=== PATIENT | male | born 1960 | race Caucasian/White ===

== ENCOUNTER 2020-06-15 16:14 | Outpatient (REF) | payer OTHER, SELFPAY ==
--- NOTE | 2020-06-15 16:21 | XR_ITS ---
EXAMINATION: XR HIP, RIGHT CLINICAL INFORMATION: Right-sided CVA pain. COMPARISON: None TECHNIQUE: Two views of the right hip. FINDINGS: Mild degenerative change in the right hip with a small collar osteophyte at the femoral head. No joint space narrowing or acute osseous abnormality is seen. IMPRESSION: Mild degenerative change is seen in the right hip. No acute osseous abnormality is demonstrated.
== END 2020-06-15 16:15 | disposition home or self-care (01) ==
LOC: HO.XRAY 16:14
DX: M25.551 Pain in right hip (principal)
CPT/HCPCS: 73502

== ENCOUNTER 2020-06-16 21:57 | Emergency (ER) | payer OTHER, SELFPAY ==
[2020-06-16 22:00] VITALS: BP 177/80; PULSE 72; RESP 16; TEMP 36.6; O2SAT 99; BMI 35.3
[2020-06-16 22:30] VITALS: BP 154/80; PULSE 66; RESP 18; TEMP 36.9; O2SAT 98
--- NOTE | 2020-06-16 22:51 | ED_ITS ---
HPI - Abdominal Pain General Chief Complaint: Abdominal Pain Stated Complaint: ABD PAIN Time Seen by Provider: 06/16/20 22:51 Source: patient Mode of arrival: ambulatory Limitations: no limitations History of Present Illness HPI narrative: This is a 60-year-old male who presents with 3-4 days constant right upper quadrant discomfort that he states kind of radiates into his right shoulder not associated with fevers or chills but having some queasiness without vomiting or diarrhea. He denies any urinary pain/ burning /frequency and has not had his gallbladder removed. Pain improves on standing. Related Data Allergies Allergy/AdvReac Type Severity Reaction Status Date / Time colchicine [Colcrys] Allergy Unknown GI UPSET Verified 06/17/20 00:57 indomethacin Allergy Unknown tingling Verified 06/17/20 00:57 mouth No Known Allergies Allergy Verified 06/17/20 00:57 Review of Systems Review of Systems Pertinent positives and negatives as stated in HPI 10 point review of systems is otherwise negative. Physical Exam Vital Signs: Vital Signs: Vital Signs Temp Pulse Resp BP Pulse Ox 06/16/20 22:30 98.5 F 66 18 154/80 H 98 06/16/20 22:00 98 F 72 16 177/80 H 99 Body Mass Index 35.3 VITAL SIGNS: Reviewed. GENERAL: Well developed, well nourished, in no acute distress. HEAD: Normocephalic/atraumatic, EYES: PERRLA, EOMI intact without pain, no nystagmus/pallor/icterus noted EARS: Ext canals without abnormality, TMs non-bulging and non-erythematous NOSE: Nares patent bilateral OROPHARYNX: no oral lesions noted, posterior pharynx clear and non-erythematous without noted tonsillar enlargement/erythema/exudates NECK: Supple, no adenopathy LUNGS: Normal breath sounds. No adventitious sounds or accessory muscle use. SpO2<99%> CARDIOVASCULAR: Regular rate and rhythm without noted murmurs, no JVD or lower extremity edema. ABDOMEN: Soft, Mild tenderness at right upper quadrant, non-distended with bowel sounds. No rigidity. No guarding. No palpable masses or hernias noted MUSCULOSKELETAL: No tenderness, deformities, or effusions noted on gross inspection. EXTREMITIES: No cyanosis, clubbing or edema. SKIN: Inspection of the skin reveals no rashes, ulcerations, jaundice, pallor, or petechiae. NEUROLOGIC: Alert and oriented x 4. Strength and sensation to light touch were grossly intact x 4. Course Course Course Narrative: This is a 60-year-old male with history and clinical presentation most consistent with likely musculoskeletal, cholelithiasis/ cholecystitis but doubt pneumonia, renal colic, diverticulitis. Review of all investigations is negative for any acute findings to further support the possibility of cholelithiasis or cholecystitis. In addition, urinalysis is negative for any acute findings. All results and findings were discussed with patient at bedside, he was provided with a lidocaine patch at the site of maximal tenderness and discharged home in stable condition. MDM - Abdominal Pain Lab Data Result diagrams: 06/16/20 23:22 06/16/20 23:22 Labs: Lab Results 06/16/20 06/16/20 06/16/20 Range/Units 23:20 23:22 23:22 WBC 8.2 (4.8-10.8) X10*3/uL RBC 4.52 L (4.60-5.80) X10*6/uL Hgb 13.9 L (14.0-18.0) g/dl Hct 42.2 (42-52) % MCV 93.4 (80-98) fL MCH 30.8 (27.0-33.0) pg MCHC 32.9 (31.0-36.0) g/dl RDW 13.2 (11.0-16.0) % Plt Count 217 (160-400) X10*3/uL MPV 9.2 L (9.4-12.4) fL Immature Gran % (Auto) 0.1 (0.0-0.4) % Neut % (Auto) 65.2 (45-73) % Lymph % (Auto) 22.6 (20-40) % [place] % (Auto) 8.7 (2-11) % Eos % (Auto) 2.7 (0-4) % Baso % (Auto) 0.7 (0-2) % Lymph # (Auto) 1.9 (1.2-4.9) X10*3/uL [place] # (Auto) 0.7 (0.1-1.2) X10*3/uL Eos # (Auto) 0.2 (0.0-0.4) X10*3/uL Baso # (Auto) 0.1 (0.0-0.2) X10*3/uL Abs Immat Gran (auto) 0.01 (0.00-0.03) X10*3/uL Absolute Neuts (auto) 5.4 (2.0-8.3) X10*3/uL Absolute Nucleated RBC 0.000 (0.0-0.012) X10*3/uL Nucleated RBC % (auto) 0.0 (0.0-0.2) /100WBC Sodium 139 (135-145) mmol/L Potassium 3.8 (3.3-5.1) mmol/l Chloride 102 (96-108) mmol/L Carbon Dioxide 29 (22-29) mmol/L Anion Gap 12 (12-20) BUN 15 (9-16) mg/dL Creatinine 0.83 (0.5-1.4) mg/dL Estim Creat Clear Calc 141.9 Estimated GFR > 60 Random Glucose 102 (60-115) mg/dL Calcium 8.8 (8.4-10.2) mg/dL Total Bilirubin 0.4 (0.0-1.0) mg/dL AST 27 (5-37) U/L ALT 34 (0-40) U/L Alkaline Phosphatase 56 (39-117) U/L Total Protein 6.5 (6.5-8.0) g/dL Albumin 4.1 (3.5-5.0) g/dL Lipase 51 (8-78) U/L Urine Color YELLOW Urine Appearance CLEAR Urine pH 6.0 (5.0-8.0) Ur Specific [place] >= 1.030 H (1.005-1.025) Urine Protein NEG (NEG-TRACE) MG/DL Urine Glucose (UA) NEG (NEG) MG/DL Urine Ketones NEG (NEG) MG/DL Urine Blood NEG (NEG) Urine Nitrite NEG (NEG) Ur Leukocyte Esterase NEG (NEG) Discharge Plan Discharge Clinical Impression: Muscle strain Patient Disposition: Home, Self-Care Instructions: Muscle Strain (ED), Musculoskeletal Pain (ED) Additional Instructions: Consider using lidocaine patches, they are available [id number] from [employer] and should be applied to area of maximal tenderness as directed on the outside packaging. The patient and/or family acknowledge understanding of results (as applicable), diagnosis, treatment plan, need for follow up, and symptoms that should prompt a return to the emergency room. Referrals: Larry Elizabeth MD [Primary Care Provider] - 2 days PMF Past Medical History Source: nursing notes reviewed Medical History HTN (hypertension) Surgical History Hx of appendectomy Social History Social History Alcohol intake: current Smoking Status: Never smoker Use of substances other than those prescribed or required for medical reasons: No Advance Directives: No Advance Directives Information Provided: Yes
--- NOTE | 2020-06-16 22:52 | US_ITS ---
EXAMINATION: US ABDOMEN LIMITED CLINICAL INFORMATION: Right upper quadrant pain. COMPARISON: 08/12/2013 TECHNIQUE: Real-time imaging of the right upper quadrant abdominal viscera. FINDINGS: PANCREAS: The visualized proximal portion of the pancreas is unremarkable. The distal portion is obscured secondary to overlying bowel gas. LIVER: The liver demonstrates increased echogenicity suspicious for steatosis. No focal hepatic lesion. There is no intrahepatic biliary duct dilatation seen. GALLBLADDER: The gallbladder is physiologically distended without evidence of stones, sludge, polyps, wall thickening or pericholecystic fluid. COMMON BILE DUCT: Normal in caliber measuring 0.4 cm in diameter. RIGHT KIDNEY: No hydronephrosis. No renal calculi or focal parenchymal lesions. The kidney measures 14.9 cm in maximum dimension. FREE FLUID: None. IMPRESSION: No acute hepatobiliary findings. Hepatic steatosis.
[2020-06-16 23:27] LABS: Basophils Absolute Auto 0.1 X10*3/uL (0.0-0.2); Basophils Percent Auto 0.7 % (0-2); Eosinophils Absolute Auto 0.2 X10*3/uL (0.0-0.4); Eosinophils Percent Auto 2.7 % (0-4); Hematocrit 42.2 % (42-52); Hemoglobin 13.9 g/dl (14.0-18.0); Imm Gran Abs Auto 0.01 X10*3/uL (0.00-0.03); Imm Gran Pct Auto 0.1 % (0.0-0.4); Lymphocytes Absolute Auto 1.9 X10*3/uL (1.2-4.9); Lymphocytes Percent Auto 22.6 % (20-40); Mean Corpuscular HGB Conc 32.9 g/dl (31.0-36.0); Mean Corpuscular Hemoglobin 30.8 pg (27.0-33.0); Mean Corpuscular Volume 93.4 fL (80-98); Mean Platelet Volume 9.2 fL (9.4-12.4); Monocytes Absolute Auto 0.7 X10*3/uL (0.1-1.2); Monocytes Percent Auto 8.7 % (2-11); Neutrophils Absolute Auto 5.4 X10*3/uL (2.0-8.3); Neutrophils Percent Auto 65.2 % (45-73); Platelet Count 217 X10*3/uL (160-400); Red Blood Count 4.52 X10*6/uL (4.60-5.80); Red Cell Distribution Width 13.2 % (11.0-16.0); White Blood Count 8.2 X10*3/uL (4.8-10.8)
[2020-06-16 23:28] LABS: MANUAL DIFF FLAG NO
[2020-06-17] VITALS: BP 162/78; PULSE 59; RESP 20
[2020-06-17 00:04] LABS: Glucose Urine UA NEG (NEG); Leukocyte Esterase Urine NEG (NEG); Nitrite Urine NEG (NEG); Specific Gravity - Urine >= 1.030 (1.005-1.025); Urine Blood NEG (NEG); Urine Ketones NEG (NEG); Urine Protein NEG (NEG-TRACE)
[2020-06-17 00:05] LABS: Appearance Urine CLEAR; Color Urine YELLOW; UACC Culture Trigger NO
[2020-06-17 00:11] LABS: Alanine Aminotransferase 34 U/L (0-40); Albumin Level 4.1 g/dL (3.5-5.0); Alkaline Phosphatase 56 U/L (39-117); Anion Gap 12 (12-20); Aspartate Amino Transferase 27 U/L (5-37); Bilirubin Total 0.4 mg/dL (0.0-1.0); Blood Urea Nitrogen 15 mg/dL (9-16); Carbon Dioxide 29 mmol/L (22-29); Chloride 102 mmol/L (96-108); Creatinine Clr Calc Pharmacy 141.9; Estimated Glomerular Filt Rate > 60; Glucose Random 102 mg/dL (60-115); Lipase 51 U/L (8-78); Potassium 3.8 mmol/l (3.3-5.1); Sodium 139 mmol/L (135-145); Total Protein 6.5 g/dL (6.5-8.0)
--- NOTE | 2020-06-17 00:19 | PC.NURSE ---
PT BACK FROM ULTRA SOUND. PT STATES PAIN HAS GOTTEN BETTER, PROVIDER IS AWARE OF PAIN LEVEL AND WILL CONTINUE TO MONITOR.
[2020-06-17 00:42] LABS: Calcium 8.8 mg/dL (8.4-10.2)
[2020-06-17] MEDS: Lidocaine 4 % Patch ADH..PATCH 1 PATCH TRANSDERMA (00:58)
== END 2020-06-17 01:07 | disposition home or self-care (01) ==
PROVIDERS: Emergency Provider Student in an Organized Health Care Education/Training Program
DX: S39.011A Strain of muscle, fascia and tendon of abdomen, initial encounter (principal); X58.XXXA Exposure to other specified factors, initial encounter; I10 Essential (primary) hypertension; Y93.9 Activity, unspecified; Y92.9 Unspecified place or not applicable; Y99.9 Unspecified external cause status
CPT/HCPCS: 36415; 76705; 80053; 81003; 83690; 85025; 99284

== ENCOUNTER 2020-07-27 07:56 | Outpatient (REF) | payer OTHER, SELFPAY ==
[2020-07-27 11:06] LABS: Hematocrit 44.4 % (42-52); Hemoglobin 14.7 g/dl (14.0-18.0); Mean Corpuscular HGB Conc 33.1 g/dl (31.0-36.0); Mean Corpuscular Hemoglobin 30.6 pg (27.0-33.0); Mean Corpuscular Volume 92.3 fL (80-98); Mean Platelet Volume 10.3 fL (9.4-12.4); Platelet Count 261 X10*3/uL (160-400); Red Blood Count 4.81 X10*6/uL (4.60-5.80); Red Cell Distribution Width 13.4 % (11.0-16.0)
[2020-07-27 11:40] LABS: Alanine Aminotransferase 45 U/L (0-40); Albumin Level 4.1 g/dL (3.5-5.0); Alkaline Phosphatase 55 U/L (39-117); Anion Gap 12 (12-20); Aspartate Amino Transferase 37 U/L (5-37); Bilirubin Direct 0.3 mg/dL (0.0-0.5); Bilirubin Total 0.7 mg/dL (0.0-1.0); Blood Urea Nitrogen 12 mg/dL (9-16); Calcium 8.3 mg/dL (8.4-10.2); Carbon Dioxide 31 mmol/L (22-29); Chloride 101 mmol/L (96-108); Cholesterol 121 mg/dL; Estimated Glomerular Filt Rate > 60; Glucose Fasting 104 mg/dL (60-99); HDL Cholesterol 43 mg/dL; LDL Cholesterol Calculated 56 mg/dl; Potassium 4.3 mmol/l (3.3-5.1); Sodium 140 mmol/L (135-145); Total Protein 6.5 g/dL (6.5-8.0); Triglycerides 110 mg/dL
[2020-07-27 11:49] LABS: Prostate Specific Antigen 0.29 ng/mL (<0.05-4.0)
== END 2020-07-27 07:57 | disposition home or self-care (01) ==
LOC: HO.HMGCLDS 07:56
DX: Z00.00 Encounter for general adult medical examination without abnormal findings (principal); Z12.5 Encounter for screening for malignant neoplasm of prostate; I10 Essential (primary) hypertension; R35.1 Nocturia
CPT/HCPCS: 36415; 80053; 80061; 80076; 82248; 84153; 85027

== ENCOUNTER 2020-10-08 09:52 | Emergency (ER) | payer OTHER, SELFPAY ==
[2020-10-08 11:27] VITALS: BP 180/94; PULSE 68; RESP 18; TEMP 37.1; O2SAT 96; BMI 33.7
--- NOTE | 2020-10-08 12:12 | ED_ITS ---
HPI - URI/Sore Throat General Chief Complaint: Upper Respiratory Symptoms Stated Complaint: sinus infection Time Seen by Provider: 10/08/20 11:43 Source: patient Mode of arrival: ambulatory History of Present Illness HPI Narrative: 60-year-old male with past medical history of GERD, deviated septum, HTN presenting to the ED complaining of sinus pressure, rhinorrhea and bilateral ear pain x5 days. Admits to multiple sinus infections in the past, and this is similar to priors. Denies fever, chills, hearing loss, drainage from ear, sore throat, cough, chest pain, shortness MD elicited complaint: rhinorrhea, nasal congestion and sinus pain Related Data Home Medications Medication Instructions Recorded Confirmed azithromycin 250 mg tablet 250 mg PO DAILY 10/05/20 Previous Rx's Medication Instructions Recorded metoprolol tartrate 100 mg tablet 100 mg PO BID #60 tab 10/05/20 azithromycin See Rx Instructions PO .COMPLEX #6 10/08/20 tab Allergies Allergy/AdvReac Type Severity Reaction Status Date / Time colchicine [Colcrys] Allergy Unknown GI UPSET Verified 10/08/20 11:27 indomethacin Allergy Unknown tingling Verified 10/08/20 11:27 mouth No Known Allergies Allergy Verified 10/08/20 11:27 Review of Systems Review of Systems: Constitutional: No Weight loss, No Fever, No Chills ENT/Mouth: + Ear Pain, + Nasal Congestion, + Sinus Pain, No Hoarseness, No sore throat, + Rhinorrhea, No Swallowing Difficulty Cardiovascular: No Chest Pain, No SOB Respiratory: No Cough Musculoskeletal: No joint pain, No Myalgias, No Joint Swelling Skin: No Skin Lesions, No rash Yes all other systems are reviewed and are negative [facility] Past Medical History Attestation statement: The following information was validated with the patient. Medical History (Updated 10/08/20 @ 12:16 by JODIE Lopez) Deviated septum GERD (gastroesophageal reflux disease) HTN (hypertension) Surgical History Hx of appendectomy Social History Social History Alcohol intake: current Alcohol intake frequency: a few times a month Alcohol type: beer and hard liquor Smoking Status: Never smoker Smoked in Last 30 Days: No Use of substances other than those prescribed or required for medical reasons: No Advance Directives: No Advance Directives Information Provided: No Physical Exam Vital Signs: Vital Signs: Last Vital Signs Temp 98.7 F 10/08/20 11:27 Pulse 68 10/08/20 11:27 Resp 18 10/08/20 11:27 BP 180/94 H 10/08/20 11:27 Pulse Ox 96 10/08/20 11:27 Body Mass Index 33.7 Const: General: cooperative, healthy appearing, comfortable and no acute distress Orientation/consciousness: patient oriented x3 Limitations: no limitations HENMT: Head: Yes normal to inspection Ears: hearing grossly normal bilaterally, external ears normal, TM's normal bilaterally and mastoids normal General nose exam: Normal external nose present Face and sinus: Yes face symmetric, No crepitus and Yes sinus tenderness (Frontal and ethmoid) Mouth: Normal oral and palatal mucosa present and tongue normal Throat: Yes posterior oropharynx normal, Yes tonsils normal, Yes uvula midline, No peritonsillar mass and No uvular edema Eyes: General: appearance normal, both eyes and all related structures EOM: EOMs intact bilaterally Neck: Neck: Yes normal visual inspection, Yes no lymphadenopathy and Yes no meningeal signs Resp: Effort & Inspection: normal respiratory effort, no stridor and not tachypneic Skin: Rashes: no rashes Wounds: no wounds Neuro: General: patient oriented x3 and no meningeal signs Gait exam (Neuro): Normal gait present Extrem: General: Yes normal to inspection MDM - URI/Sore Throat MDM Narrative Medical decision making narrative: On exam VSS, NAD/well-appearing, exam consistent with sinusitis. Lower concern for COVID-19/pneumonia Medical Records Attestation: I reviewed the patient's medical records. Discharge Plan Discharge Clinical Impression: Sinusitis Patient Disposition: Home, Self-Care Instructions: Sinusitis (ED) Additional Instructions: You likely have a sinus infection. Zithromax in is an antibiotic, take as prescribed. Continue taking using Flonase at home for nasal congestion. Take Tylenol and Motrin. Stay hydrated. Rest. Establish care with a new primary care doctor If symptoms persist or worsen, if fever, hearing loss, drainage from ear, shortness of breath or chest pain return to the ED Prescriptions: New azithromycin 250 mg tablet See Rx Instructions PO .COMPLEX Qty: 6 RF: 0 No Action metoprolol tartrate 100 mg tablet 100 mg PO BID Qty: 60 RF: 0 Referrals: Physician,Unknown [Primary Care Provider] - 2 days
== END 2020-10-08 12:20 | disposition home or self-care (01) ==
PROVIDERS: Emergency Provider Emergency Medicine
DX: J32.9 Chronic sinusitis, unspecified (principal); I10 Essential (primary) hypertension
CPT/HCPCS: 99283

== ENCOUNTER 2021-02-06 06:12 | Outpatient (REF) | payer OTHER, SELFPAY ==
[2021-02-06 11:24] LABS: MANUAL DIFF FLAG NO
[2021-02-06 11:31] LABS: Basophils Absolute Auto 0.1 X10*3/uL (0.0-0.2); Basophils Percent Auto 0.7 % (0-2); Eosinophils Absolute Auto 0.3 X10*3/uL (0.0-0.4); Eosinophils Percent Auto 3.5 % (0-4); Hematocrit 44.5 % (42-52); Hemoglobin 14.5 g/dl (14.0-18.0); Imm Gran Abs Auto 0.03 X10*3/uL (0.00-0.03); Imm Gran Pct Auto 0.4 % (0.0-0.4); Lymphocytes Absolute Auto 1.6 X10*3/uL (1.2-4.9); Lymphocytes Percent Auto 21.6 % (20-40); Mean Corpuscular HGB Conc 32.6 g/dl (31.0-36.0); Mean Corpuscular Hemoglobin 30.5 pg (27.0-33.0); Mean Corpuscular Volume 93.7 fL (80-98); Mean Platelet Volume 10.1 fL (9.4-12.4); Monocytes Absolute Auto 0.5 X10*3/uL (0.1-1.2); Monocytes Percent Auto 7.5 % (2-11); Neutrophils Absolute Auto 4.8 X10*3/uL (2.0-8.3); Neutrophils Percent Auto 66.3 % (45-73); Platelet Count 262 X10*3/uL (160-400); Red Blood Count 4.75 X10*6/uL (4.60-5.80); Red Cell Distribution Width 13.9 % (11.0-16.0); White Blood Count 7.2 X10*3/uL (4.8-10.8)
[2021-02-06 11:31] LABS: Glucose Urine UA NEG (NEG); Leukocyte Esterase Urine NEG (NEG); Nitrite Urine NEG (NEG); Specific Gravity - Urine 1.025 (1.005-1.025); Urine Blood NEG (NEG); Urine Ketones NEG (NEG); Urine Protein TRACE MG/DL (NEG-TRACE)
[2021-02-06 11:34] LABS: Appearance Urine CLOUDY; Color Urine YELLOW
[2021-02-06 12:07] LABS: TSH reflex Free T4 1.17 uIU/mL (0.32-4.0)
[2021-02-06 12:09] LABS: Alanine Aminotransferase 41 U/L (0-40); Alkaline Phosphatase 60 U/L (39-117); Anion Gap 12 (12-20); Aspartate Amino Transferase 40 U/L (5-37); Bilirubin Total 0.6 mg/dL (0.0-1.0); Blood Urea Nitrogen 14 mg/dL (9-16); Calcium 8.9 mg/dL (8.4-10.2); Carbon Dioxide 31 mmol/L (22-29); Chloride 102 mmol/L (96-108); Cholesterol 117 mg/dL; Estimated Glomerular Filt Rate > 60; Glucose Fasting 123 mg/dL (60-99); HDL Cholesterol 43 mg/dL; LDL Cholesterol Calculated 56 mg/dl; Potassium 4.1 mmol/L (3.3-5.1); Sodium 141 mmol/L (135-145); Total Protein 6.6 g/dL (6.5-8.0); Triglycerides 94 mg/dL
== END 2021-02-06 06:13 | disposition home or self-care (01) ==
LOC: HO.HMGCLDS 06:12
PROVIDERS: PCP Internal Medicine; Visit Provider Internal Medicine
DX: I10 Essential (primary) hypertension (principal); J30.9 Allergic rhinitis, unspecified; K21.9 Gastro-esophageal reflux disease without esophagitis; E66.9 Obesity, unspecified; G47.33 Obstructive sleep apnea (adult) (pediatric)
CPT/HCPCS: 36415; 80053; 80061; 81003; 84443; 85025

== ENCOUNTER 2021-02-13 06:45 | Outpatient (REF) | payer OTHER, SELFPAY ==
--- NOTE | ~2021-02-13 | XR_ITS ---
EXAMINATION: CERVICAL AND LUMBAR SPINE. BILATERAL HIPS. CLINICAL INFORMATION: Cervical disc disorder low back pain. Bilateral hip pain. COMPARISON: Right hip 06/15/2020 lumbar spine 09/07/2018 TECHNIQUE: 3 views lumbar spine. 6 views cervical spine and 2 views each hip. FINDINGS: LUMBAR SPINE: The vertebral heights and alignment is normal. There is mild loss of disc height at T11-T12, T12-L1, L1-L2 and L2-L3 disc levels with moderate ventral spondylosis at T12-L1 and L1 S2 disc levels. No visible acute fracture or dislocation seen. Paravertebral soft tissues are normal. CERVICAL SPINE: There is mild straightening of cervical lordosis. There is loss of C2-C3 disc height. Rest of the disc heights, vertebral heights and alignment is normal. The neural foramina are mildly narrowed bilaterally in the lower cervical region. No visible acute fracture or dislocation seen. BILATERAL HIPS: There is no visible acute fracture, dislocation or subluxation seen. The joint spaces are maintained normal. No loose bodies or soft tissue swelling seen. XR/XR hips ALEJO min 3V IMPRESSION: Degenerative disc changes with ventral spondylosis upper lumbar and lower dorsal spine. No acute fracture or dislocation seen in the lumbar spine. Mild degenerative disc changes C2-C3 disc level with mild straightening of cervical lordosis likely spasm or position. Unremarkable bilateral hip exam.
--- NOTE | ~2021-02-13 | XR_ITS ---
EXAMINATION: CERVICAL AND LUMBAR SPINE. BILATERAL HIPS. CLINICAL INFORMATION: Cervical disc disorder low back pain. Bilateral hip pain. COMPARISON: Right hip 06/15/2020 lumbar spine 09/07/2018 TECHNIQUE: 3 views lumbar spine. 6 views cervical spine and 2 views each hip. FINDINGS: LUMBAR SPINE: The vertebral heights and alignment is normal. There is mild loss of disc height at T11-T12, T12-L1, L1-L2 and L2-L3 disc levels with moderate ventral spondylosis at T12-L1 and L1 S2 disc levels. No visible acute fracture or dislocation seen. Paravertebral soft tissues are normal. CERVICAL SPINE: There is mild straightening of cervical lordosis. There is loss of C2-C3 disc height. Rest of the disc heights, vertebral heights and alignment is normal. The neural foramina are mildly narrowed bilaterally in the lower cervical region. No visible acute fracture or dislocation seen. BILATERAL HIPS: There is no visible acute fracture, dislocation or subluxation seen. The joint spaces are maintained normal. No loose bodies or soft tissue swelling seen. XR/XR cervical spine 3V IMPRESSION: Degenerative disc changes with ventral spondylosis upper lumbar and lower dorsal spine. No acute fracture or dislocation seen in the lumbar spine. Mild degenerative disc changes C2-C3 disc level with mild straightening of cervical lordosis likely spasm or position. Unremarkable bilateral hip exam.
--- NOTE | ~2021-02-13 | XR_ITS ---
EXAMINATION: CERVICAL AND LUMBAR SPINE. BILATERAL HIPS. CLINICAL INFORMATION: Cervical disc disorder low back pain. Bilateral hip pain. COMPARISON: Right hip 06/15/2020 lumbar spine 09/07/2018 TECHNIQUE: 3 views lumbar spine. 6 views cervical spine and 2 views each hip. FINDINGS: LUMBAR SPINE: The vertebral heights and alignment is normal. There is mild loss of disc height at T11-T12, T12-L1, L1-L2 and L2-L3 disc levels with moderate ventral spondylosis at T12-L1 and L1 S2 disc levels. No visible acute fracture or dislocation seen. Paravertebral soft tissues are normal. CERVICAL SPINE: There is mild straightening of cervical lordosis. There is loss of C2-C3 disc height. Rest of the disc heights, vertebral heights and alignment is normal. The neural foramina are mildly narrowed bilaterally in the lower cervical region. No visible acute fracture or dislocation seen. BILATERAL HIPS: There is no visible acute fracture, dislocation or subluxation seen. The joint spaces are maintained normal. No loose bodies or soft tissue swelling seen. XR/XR lumbar spine 2-3V IMPRESSION: Degenerative disc changes with ventral spondylosis upper lumbar and lower dorsal spine. No acute fracture or dislocation seen in the lumbar spine. Mild degenerative disc changes C2-C3 disc level with mild straightening of cervical lordosis likely spasm or position. Unremarkable bilateral hip exam.
== END 2021-02-13 06:46 | disposition home or self-care (01) ==
LOC: HO.XRAY 06:45
PROVIDERS: Visit Provider Internal Medicine
DX: M50.90 Cervical disc disorder, unspecified, unspecified cervical region (principal); M51.36 Other intervertebral disc degeneration, lumbar region; M25.551 Pain in right hip; M25.552 Pain in left hip
CPT/HCPCS: 72040; 72100; 73522

== ENCOUNTER 2021-05-06 09:57 | Emergency (ER) | payer OTHER, SELFPAY ==
--- NOTE | ~2021-05-06 | XR_ITS ---
EXAMINATION: XR FOOT, LEFT CLINICAL INFORMATION: Left lateral foot pain COMPARISON: None TECHNIQUE: AP, lateral, and oblique views of the left foot. FINDINGS: Soft tissue marker positioned along the lateral aspect of the midfoot. Mild lateral soft tissue swelling at the level of the proximal fifth metatarsal. There is bony spurring/enthesopathy changes at the proximal base fifth metatarsal without evidence of discrete acute fracture. Ossicle adjacent to the cuboid. No visible acute fracture or dislocation otherwise. Large Achilles tendon insertional spurring. Small plantar calcaneal spur. Alignment is maintained. Joint spaces are relatively maintained. XR/XR foot LT min 3V IMPRESSION: No radiographic evidence of discrete acute fracture. Bony spurring/enthesopathy at the proximal base fifth metatarsal. Calcaneal spurring.
[2021-05-06 10:50] VITALS: BP 167/105; PULSE 61; RESP 16; TEMP 36.8; O2SAT 98; BMI 34.0
--- NOTE | 2021-05-06 11:34 | ED.GENADULT ---
HPI - General Adult General Chief complaint: Extremity Injury, Lower Stated complaint: L FOOT SWELLING RED Time Seen by Provider: 05/06/21 11:32 Source: patient Mode of arrival: ambulatory Limitations: no limitations History of Present Illness HPI narrative: 61-year-old male with left lateral foot pain and redness that he was wondering if it is cellulitis that started 3 days ago and is now getting better. The redness and swelling was on the lateral and dorsal aspect of his left foot. It hurt to walk. Patient has a history of gout. The area was warm and painful to touch, now the pain is resolving and he is able to walk without pain. Related Data Home Medications Medication Instructions Recorded Confirmed aspirin 81 mg tablet,delayed 81 mg PO DAILY 10/26/20 02/12/21 release Previous Rx's Medication Instructions Recorded clonazepam 0.5 mg tablet 0.5 mg PO DAILY PRN 90 Days #90 tab 10/27/20 loratadine 10 mg tablet 10 mg PO DAILY 90 Days #90 tab 10/27/20 pantoprazole 40 mg tablet,delayed 40 mg PO DAILY 90 Days #90 tab 10/27/20 release metoprolol tartrate 100 mg tablet 100 mg PO BID 90 Days #180 tab 10/30/20 valsartan 160 1 tab PO DAILY 90 Days #90 tab 12/07/20 mg-hydrochlorothiazide 25 mg tablet amlodipine 5 mg tablet 5 mg PO DAILY 90 Days #90 tab 02/12/21 meclizine 25 mg tablet 25 mg PO TID PRN 10 Days #30 tab 04/23/21 fluticasone propionate 50 2 spray INTRANASAL BID #16 ml 05/05/21 mcg/actuation nasal spray,suspension prednisone 10 mg tablet 10 mg PO DAILY 12 Days #12 tab 05/06/21 Allergies Allergy/AdvReac Type Severity Reaction Status Date / Time colchicine [Colcrys] Allergy Unknown GI UPSET Verified 02/12/21 09:14 indomethacin Allergy Unknown tingling Verified 02/12/21 09:14 mouth Review of Systems Review of Systems: Constitutional : No Weight loss, No Fever, No Chills, No Night Sweats,No Fatigue, No Malaise ENT/Mouth : No Hearing loss, No Ear Pain, No Nasal Congestion, NoSinus Pain, No Hoarseness, No sore throat, No Rhinorrhea, NoSwallowing Difficulty Eyes: No Eye Pain, No Swelling, No Redness, No Foreign Body, NoDischarge, No Vision Changes Cardiovascular : No Chest Pain, No SOB, No Dyspnea on Exertion, NoOrthopnea, No Edema, No Palpitations Respiratory : No Cough, No Sputum, No Wheezing, No Smoke Exposure, No Dyspnea Gastrointestinal : No Nausea, No Vomiting, No Diarrhea, NoConstipation, No abdominal Pain, No Hematochezia, No Melena Genitourinary : no irregular bleeding, No Dysuria, No UrinaryFrequency, No Hematuria, No Urinary Incontinence, No Urgency, No FlankPain, No Urinary Flow Changes, No Hesitancy Musculoskeletal : Left foot pain Skin : Redness and swelling left foot Neuro : No Weakness, No Numbness, No Paresthesias, No Loss ofConsciousness, No Dizziness, No Headache PMFSH Past Medical History Medical History Allergic rhinitis Anxiety Benign essential hypertension Bilateral hip pain Cervical disc disease Deviated septum Elevated LFTs GERD (gastroesophageal reflux disease) Gout Impaired fasting glucose Lumbar degenerative disc disease Normal colonoscopy (~03/17/14) Obesity (BMI 30-39.9) Obstructive sleep apnea Surgical History History of hernia repair Hx of appendectomy Social History Social History Alcohol intake: current Alcohol intake frequency: a few times a month Alcohol type: beer and hard liquor Patient Tobacco Use Status: Former Tobacco user Tobacco use type: Cigarette Second Hand Smoke Exposure: No Advance Directives: Yes Advance Directives Information Provided: Yes Advance Directives on File: No service: No Current occupational status: retired Physical Exam Vital Signs: Vital Signs: Last Vital Signs Temp 98.2 F 05/06/21 10:50 Pulse 61 05/06/21 10:50 Resp 16 05/06/21 10:50 BP 167/105 H 05/06/21 10:50 Pulse Ox 98 05/06/21 10:50 Body Mass Index 34.0 Const: General: cooperative, no acute distress, well developed, alert and awake Nutritional Appearance: well nourished Orientation/consciousness: patient oriented x3 Limitations: no limitations HENMT: Head: Yes normal to inspection, Yes normocephalic and Yes atraumatic Ears: hearing grossly normal bilaterally, external ears normal, TM's normal bilaterally and EAC's normal General nose exam: Normal external nose present Face and sinus: Yes normal facial exam and Yes sinuses nontender Mouth: Normal oral and palatal mucosa present Throat: Yes posterior oropharynx normal Eyes: Conjunctivae: conjunctivae normal Pupils: Equal, round and reactive pupils present EOM: EOMs intact bilaterally Neck: Neck: Yes full ROM, Yes no lymphadenopathy and Yes supple Resp: Effort & Inspection: normal respiratory effort and able to speak in complete sentences Auscultation: clear to auscultation bilaterally, no crackles, no rales, no rhonchi and no wheezes Cardio: Rate: regular rate Rhythm: regular rhythm Heart sounds: S1 normal heart sound present and S2 normal heart sound present Skin: Other: Very mild redness, no warmth, 2 dorsum and lateral aspect of left foot Neuro: General: patient oriented x3, tone normal and moves all extremities Cranial nerves: Yes Equal, round and reactive pupils present Extrem: Other: Tender to palpation lateral left foot Psych: Appearance: grossly normal Affect: normal affect Attitude: cooperative Thought process: Normal thought process present Course Course Course Narrative: 7-year-old male with a history of gout and cellulitis presents with 3 days of left foot redness and pain, no warmth, pain is resolving. X-ray shows mild swelling at the base of the 5th metatarsal. This looks more like gout than a cellulitis. Treated patient patient with prednisone. Gave return precautions. Counseled patient to call his primary care provider for follow-up appointment tomorrow. Discharge Plan Discharge Clinical Impression: Gout Qualifiers: Gout site: foot Gout etiology: unspecified cause Chronicity: acute Laterality: left Qualified Code(s): M10.9 - Gout, unspecified Patient Disposition: Home, Self-Care Instructions: Gout (ED) Additional Instructions: Please fill your prescription for prednisone and take the taper all the way to the end. Please call your primary care provider for follow-up appointment from today's emergency room visit. If your symptoms resolve, I think seeing your primary care provider in May scheduled this fine. Please return to emergency room for any new or concerning symptoms. Prescriptions: New prednisone 10 mg tablet 10 mg PO DAILY 12 Days Qty: 12 RF: 0 No Action metoprolol tartrate 100 mg tablet 100 mg PO BID 90 Days Qty: 180 RF: 3 valsartan-hydrochlorothiazide 160-25 mg tablet 1 tab PO DAILY 90 Days Qty: 90 RF: 3 meclizine 25 mg tablet 25 mg PO TID PRN (Reason: dizziness) 10 Days Qty: 30 RF: 0 fluticasone propionate 50 mcg/actuation spray,suspension 2 spray intranasal BID Qty: 16 RF: 3 aspirin 81 mg tablet,delayed release (DR/EC) 81 mg PO DAILY RF: 0 loratadine 10 mg tablet 10 mg PO DAILY 90 Days Qty: 90 RF: 3 pantoprazole 40 mg tablet,delayed release (DR/EC) 40 mg PO DAILY 90 Days Qty: 90 RF: 3 clonazepam 0.5 mg tablet 0.5 mg PO DAILY PRN (Reason: anxiety) 90 Days Qty: 90 RF: 0 amlodipine 5 mg tablet 5 mg PO DAILY 90 Days Qty: 90 RF: 1 Interventions: ED Discharge Assessment Last Done: 05/06/21 13:27 Discharge Date/Time: 05/06/21 13:27
== END 2021-05-06 13:27 | disposition home or self-care (01) ==
PROVIDERS: Emergency Provider Emergency Medicine; PCP Internal Medicine
DX: M10.9 Gout, unspecified (principal); M79.672 Pain in left foot; I10 Essential (primary) hypertension; Z79.899 Other long term (current) drug therapy; Z79.82 Long term (current) use of aspirin
CPT/HCPCS: 73630; 99283

== ENCOUNTER 2021-07-03 06:28 | Outpatient (REF) | payer OTHER, SELFPAY ==
[2021-07-03 11:27] LABS: MANUAL DIFF FLAG NO
[2021-07-03 11:33] LABS: Appearance Urine CLOUDY; Color Urine YELLOW; Glucose Urine UA NEG (NEG); Leukocyte Esterase Urine NEG (NEG); Nitrite Urine NEG (NEG); Urine Blood NEG (NEG); Urine Ketones NEG (NEG); Urine Protein NEG (NEG-TRACE)
[2021-07-03 11:45] LABS: Basophils Percent Auto 0.5 % (0-2); Eosinophils Absolute Auto 0.1 X10*3/uL (0.0-0.4); Eosinophils Percent Auto 2.2 % (0-4); Hematocrit 43.9 % (42.0-52.0); Hemoglobin 14.6 g/dl (14.0-18.0); Imm Gran Abs Auto 0.02 X10*3/uL (0.00-0.03); Imm Gran Pct Auto 0.3 % (0.0-0.4); Lymphocytes Absolute Auto 1.4 X10*3/uL (1.2-4.9); Lymphocytes Percent Auto 23.2 % (20-40); Mean Corpuscular HGB Conc 33.3 g/dl (31.0-36.0); Mean Corpuscular Hemoglobin 30.9 pg (27.0-33.0); Mean Corpuscular Volume 92.8 fL (80.0-98.0); Mean Platelet Volume 10.6 fL (9.4-12.4); Monocytes Absolute Auto 0.5 X10*3/uL (0.1-1.2); Monocytes Percent Auto 8.3 % (2-11); Neutrophils Absolute Auto 3.84 x10*3/uL (2.0-8.3); Neutrophils Percent Auto 65.5 % (45-73); Platelet Count 260 X10*3/uL (160-400); Red Blood Count 4.73 X10*6/uL (4.60-5.80); White Blood Count 5.9 X10*3/uL (4.8-10.8)
[2021-07-03 12:00] LABS: Estimated Average Glucose 114 mg/dL; Hemoglobin A1C 149.6275 umol/L; Hemoglobin A1c % 5.6 %
[2021-07-03 12:26] LABS: Alanine Aminotransferase 35 U/L (0-40); Albumin Level 3.9 g/dL (3.5-5.0); Alkaline Phosphatase 51 U/L (39-117); Anion Gap 13 (12-20); Aspartate Amino Transferase 30 U/L (5-37); Bilirubin Total 0.8 mg/dL (0.0-1.0); Blood Urea Nitrogen 9 mg/dL (9-16); Calcium 8.7 mg/dL (8.4-10.2); Carbon Dioxide 29 mmol/L (22-29); Chloride 103 mmol/L (96-108); Cholesterol 113 mg/dL; Estimated Glomerular Filt Rate > 60; Glucose Fasting 112 mg/dL (60-99); HDL Cholesterol 42 mg/dL; LDL Cholesterol Calculated 54 mg/dl; Potassium 4.1 mmol/L (3.3-5.1); Sodium 141 mmol/L (135-145); Total Protein 6.3 g/dL (6.5-8.0); Triglycerides 87 mg/dL; Uric Acid 7.8 mg/dL (3.4-7.0)
[2021-07-03 12:35] LABS: TSH reflex Free T4 1.09 uIU/mL (0.32-4.0); Vitamin D 25-OH Total 20.4 ng/mL (>30)
== END 2021-07-03 06:29 | disposition home or self-care (01) ==
LOC: HO.HMGCLDS 06:28
PROVIDERS: PCP Internal Medicine; Visit Provider Internal Medicine
DX: M10.9 Gout, unspecified (principal); E55.9 Vitamin D deficiency, unspecified; R79.89 Other specified abnormal findings of blood chemistry; K21.9 Gastro-esophageal reflux disease without esophagitis; J30.9 Allergic rhinitis, unspecified; I10 Essential (primary) hypertension; G47.33 Obstructive sleep apnea (adult) (pediatric); E66.9 Obesity, unspecified; R73.01 Impaired fasting glucose; E78.00 Pure hypercholesterolemia, unspecified
CPT/HCPCS: 36415; 80053; 80061; 81003; 82306; 83036; 84443; 84550; 85025

== ENCOUNTER 2021-11-21 06:53 | Outpatient (REF) | payer OTHER, SELFPAY ==
[2021-11-21 11:06] LABS: MANUAL DIFF FLAG NO
[2021-11-21 11:13] LABS: Basophils Absolute Auto 0.1 X10*3/uL (0.0-0.2); Basophils Percent Auto 0.6 % (0-2); Eosinophils Absolute Auto 0.2 X10*3/uL (0.0-0.4); Eosinophils Percent Auto 2.1 % (0-4); Hematocrit 46.5 % (42.0-52.0); Hemoglobin 15.2 g/dl (14.0-18.0); Imm Gran Abs Auto 0.05 X10*3/uL (0.00-0.03); Imm Gran Pct Auto 0.6 % (0.0-0.4); Lymphocytes Absolute Auto 1.5 X10*3/uL (1.2-4.9); Lymphocytes Percent Auto 17.9 % (20-40); Mean Corpuscular HGB Conc 32.7 g/dl (31.0-36.0); Mean Corpuscular Hemoglobin 31.1 pg (27.0-33.0); Mean Corpuscular Volume 95.1 fL (80.0-98.0); Mean Platelet Volume 10.6 fL (9.4-12.4); Monocytes Absolute Auto 0.8 X10*3/uL (0.1-1.2); Monocytes Percent Auto 9.4 % (2-11); Neutrophils Absolute Auto 5.7 x10*3/uL (2.0-8.3); Neutrophils Percent Auto 69.4 % (45-73); Platelet Count 250 X10*3/uL (160-400); Red Blood Count 4.89 X10*6/uL (4.60-5.80); Red Cell Distribution Width 14.1 % (11.0-16.0); White Blood Count 8.2 X10*3/uL (4.8-10.8)
[2021-11-21 11:21] LABS: Appearance Urine HAZY; Color Urine YELLOW; Glucose Urine UA NEG (NEG); Leukocyte Esterase Urine NEG (NEG); Nitrite Urine NEG (NEG); PH 6.5 (5.0-8.0); Specific Gravity - Urine 1.015 (1.005-1.025); Urine Blood NEG (NEG); Urine Ketones NEG (NEG); Urine Protein NEG (NEG-TRACE)
[2021-11-21 11:41] LABS: Alanine Aminotransferase 37 U/L (0-40); Alkaline Phosphatase 49 U/L (39-117); Anion Gap 11 (12-20); Aspartate Amino Transferase 35 U/L (5-37); Bilirubin Total 1.1 mg/dL (0.0-1.0); Blood Urea Nitrogen 17 mg/dL (9-16); Calcium 9.2 mg/dL (8.4-10.2); Carbon Dioxide 29 mmol/L (22-29); Chloride 103 mmol/L (96-108); Cholesterol 114 mg/dL; Estimated Glomerular Filt Rate > 60; Glucose Fasting 116 mg/dL (60-99); HDL Cholesterol 42 mg/dL; LDL Cholesterol Calculated 52 mg/dl; Potassium 4.4 mmol/L (3.3-5.1); Sodium 139 mmol/L (135-145); Total Protein 6.6 g/dL (6.5-8.0); Triglycerides 103 mg/dL; Uric Acid 8.4 mg/dL (3.4-7.0)
[2021-11-21 12:11] LABS: TSH reflex Free T4 1.12 uIU/mL (0.32-4.0)
[2021-11-21 14:58] LABS: Vitamin D 25-OH Total 18.2 ng/mL (>30)
== END 2021-11-21 06:54 | disposition home or self-care (01) ==
LOC: HO.HMGCLDS 06:53
PROVIDERS: Visit Provider Internal Medicine
DX: I10 Essential (primary) hypertension (principal); M10.9 Gout, unspecified; E78.00 Pure hypercholesterolemia, unspecified; E55.9 Vitamin D deficiency, unspecified
CPT/HCPCS: 36415; 80053; 80061; 81003; 82306; 84443; 84550; 85025

== ENCOUNTER 2022-01-09 10:00 | Outpatient (RCR) | payer OTHER, SELFPAY ==
--- NOTE | 2021-12-10 09:48 | MHC.PT.EP ---
[facility] [place] Office [place] Office [place] Office [address] Lavon Dubon [address] [phone] F: [phone] F: [phone] F: [phone] F: [phone] Physical Therapy Plan of Care Date of Evaluation: Date of Surgery: n/a Diagnosis: strain of muscle and tendon at neck level Assessment: Patient is a 61 year old male presenting to PT with complaints of pain in strain of muscle and tendon at neck level. Pt reports onset of pain began a few months ago but has been ongoing for a while due to insidious onset. He presents today with impairments in pain, cervical ROM, DNF strength, and posture. 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 Clinical presentation today is most consistent with signs and sx associated with possible UT strain and pt will benefit from skilled PT to address the following problems and impairments noted upon evaluation: pain, cervical ROM, DNF strength, and posture. These problems limit the patient with the following functional activities: golf, casino lakia, and sleep. The prescribed treatment plan of care is medically necessary. Co-morbidities of HTN were identified and taken into considerations of plan of care. Pt was educated on HEP, role of PT, prognosis, POC. Frequency and Duration: The patient will be seen 2 x week x 4 weeks Short Term Goals: Pt will demonstrate pain free cervical AROM in available range in 2 weeks. Pt will demonstrate ability to perform chin tuck with good DNF recruitment in 2 weeks. Pt will demonstrate min to no tenderness to palpation at R UT in 2 weeks. Pt will demonstrate improved postural awareness by sitting with biomechanically correct posture without cues throughout session to improve overall postural function in 2 weeks. Shelter Goals: Pt will demonstrate improved NDI score to <10% disability in 4 weeks for improved overall function. Pt will demonstrate ability to golf with min to no pain in swing follow through in 4 weeks. Pt will demonstrate ability to use casino machines with min to no pain in 4 weeks for return to PLOF. Treatment Plan: Modalities to reduce pain, spasms and effusion. Manual therapy to restore motion and function. Therapeutic exercise to improve strength and flexibility. Neuromuscular re-education for posture and balance. Therapeutic activities to return to functional activities of daily living. Electronically signed by: Queenie López, PT, DPT, ATC Please sign and return to therapist. Thank you for your referral.
--- NOTE | 2022-01-09 12:21 | MHC.PT.DC ---
[facility] [place] Office [place] Office [place] Office [address] Lavon Dubon [address] [phone] F: [phone] F: [phone] F: [phone] F: [phone] Physical Therapy Discharge Report Diagnosis: strain of muscle and tendon at neck level Date of Surgery: n/a Date of Evaluation: 12/10/21 Date of Discharge: 01/09/22 Treatments to Date: 8 Cancellations to Date: 0 No Shows to Date: 0 Discharge Status: Achieved Goals Improved Function Independent with HEP Discharge Summary: Pt has made good progress since start of care. He is no longer experiencing pain when playing golf which he is satisfied with. He has made great progress towards his goals and is independent in his HEP at this time. Discussed importance of meterman continuation of HEP to maintain all progress made thus far. Pt with good understanding of this. Max benefits of PT have been provided at this time and skilled PT is no longer indicated. Pt in agreement with d/c today. Electronically signed by: Queenie López, PT, DPT, ATC Please sign and return to therapist. Thank you for your referral.
== END 2022-01-09 12:21 | disposition home or self-care (01) ==
LOC: HO.PTCHIC 10:00
PROVIDERS: PCP Internal Medicine; Visit Provider Internal Medicine
DX: S16.1XXA Strain of muscle, fascia and tendon at neck level, initial encounter (principal)
CPT/HCPCS: 97110; 97140; 97161

== ENCOUNTER 2022-03-05 11:31 | Emergency (ER) | payer OTHER, SELFPAY ==
[2022-03-05 12:15] VITALS: BP 183/90; PULSE 79; RESP 18; TEMP 36.7; O2SAT 98; BMI 36.2
--- NOTE | 2022-03-05 12:18 | ECG_ITS ---
Test Reason : hypertension Blood Pressure : / mmHG Vent. Rate : 067 BPM Atrial Rate : 000 BPM P-R Int : 000 ms QRS Dur : 096 ms QT Int : 382 ms P-R-T Axes : 000 -01 019 degrees QTc Int : 403 ms Normal sinus rhythm Normal ECG When compared with ECG of 15-FEB-2014 16:59, Vent. rate has decreased BY 42 BPM Referred By: Generic ED Physician Electronically Signed By:Armen Blue
[2022-03-05 12:40] LABS: MANUAL DIFF FLAG NO
[2022-03-05 12:45] LABS: Basophils Percent Auto 0.5 % (0-2); Eosinophils Absolute Auto 0.2 X10*3/uL (0.0-0.4); Hemoglobin 14.4 g/dl (14.0-18.0); Imm Gran Abs Auto 0.05 X10*3/uL (0.00-0.03); Imm Gran Pct Auto 0.7 % (0.0-0.4); Lymphocytes Absolute Auto 1.3 X10*3/uL (1.2-4.9); Lymphocytes Percent Auto 16.3 % (20-40); Mean Corpuscular HGB Conc 33.5 g/dl (31.0-36.0); Mean Corpuscular Hemoglobin 30.9 pg (27.0-33.0); Mean Corpuscular Volume 92.3 fL (80.0-98.0); Mean Platelet Volume 9.3 fL (9.4-12.4); Monocytes Absolute Auto 0.7 X10*3/uL (0.1-1.2); Monocytes Percent Auto 9.3 % (2-11); Neutrophils Absolute Auto 5.5 x10*3/uL (2.0-8.3); Neutrophils Percent Auto 71.2 % (45-73); Platelet Count 239 X10*3/uL (160-400); Red Blood Count 4.66 X10*6/uL (4.60-5.80); Red Cell Distribution Width 13.7 % (11.0-16.0); White Blood Count 7.7 X10*3/uL (4.8-10.8)
[2022-03-05 12:56] LABS: Anion Gap 11 (12-20); Blood Urea Nitrogen 8 mg/dL (9-16); Calcium 8.7 mg/dL (8.4-10.2); Carbon Dioxide 28 mmol/L (22-29); Chloride 103 mmol/L (96-108); Creatinine Clr Calc Pharmacy 136.9; Estimated Glomerular Filt Rate > 60; Glucose Random 121 mg/dL (60-115); Potassium 4.3 mmol/L (3.3-5.1); Sodium 138 mmol/L (135-145)
[2022-03-05 13:05] LABS: Troponin-I High Sensitivity 4.9 ng/L (<3.5-35.0)
--- NOTE | 2022-03-05 15:21 | ED.GENADULT ---
HPI - General Adult General Chief complaint: General Medical Stated complaint: high bp Time Seen by Provider: 03/05/22 15:21 Source: patient Mode of arrival: ambulatory Limitations: no limitations History of Present Illness HPI narrative: patient was to have an appointment with his PMD on Thursday checked his BP and it was 220/150. No symptoms. Told to come into the ED by PMD. Patient was on losartan/hctz 320-25 but this was making him dizzy for one month so he cut back to 160-25. But his last BP check was ok. Onset (ago): unknown Severity: moderate Associated symptoms: denies other symptoms Related Data Home Medications Medication Instructions Recorded Confirmed aspirin 81 mg tablet,delayed 81 mg PO DAILY 10/26/20 11/25/21 release Previous Rx's Medication Instructions Recorded pantoprazole 40 mg tablet,delayed 40 mg PO DAILY 90 days #90 tabs 10/27/20 release meclizine 25 mg tablet 25 mg PO TID PRN dizziness 10 days 04/23/21 #30 tabs loratadine 10 mg tablet 10 mg PO DAILY #30 tabs 06/26/21 clonazepam 0.5 mg tablet 0.5 mg PO DAILY PRN anxiety 90 07/09/21 days #90 tabs fluticasone propionate 50 2 spray intranasal BID #16 mL 10/07/21 mcg/actuation nasal spray,suspension metoprolol tartrate 100 mg tablet 100 mg PO BID #180 tabs 10/23/21 cholecalciferol (vitamin D3) 50 50 mcg PO DAILY 90 days #90 caps 11/25/21 mcg (2,000 unit) capsule valsartan 320 1 tab PO DAILY 90 days #90 tabs 11/25/21 mg-hydrochlorothiazide 25 mg tablet amlodipine 5 mg tablet 5 mg PO DAILY #90 tabs 02/03/22 Allergies Allergy/AdvReac Type Severity Reaction Status Date / Time colchicine [Colcrys] Allergy Unknown GI UPSET Verified 03/05/22 12:15 indomethacin Allergy Unknown tingling Verified 03/05/22 12:15 mouth Review of Systems Constitutional: Constitutional: Reports no additional constitutional complaints Eyes: Eyes: Reports no additional eye complaints ENT: Denies dizziness Cardiovascular: Cardiovascular: Reports no additional cardiovascular complaints Respiratory: Respiratory: Reports as per HPI Gastrointestinal: Gastrointestinal: Reports no additional gastrointestinal complaints Musculoskeletal: Musculoskeletal: Reports no additional musculoskeletal complaints Integumentary/Breasts: Skin/Breast: Denies rash Neurologic: Reports system reviewed and no additional complaints, except as documented, Denies dizziness and Denies Sensory deficit (Neuro) Psychiatric: Psychiatric: Denies anxiety [facility] Past Medical History Medical History Allergic rhinitis Anxiety Benign essential hypertension Bilateral hip pain Cervical disc disease Deviated septum Elevated LFTs GERD (gastroesophageal reflux disease) Gout Impaired fasting glucose Lumbar degenerative disc disease Normal colonoscopy (~03/17/14) Obesity (BMI 30-39.9) Obstructive sleep apnea Vitamin D deficiency Surgical History History of hernia repair Hx of appendectomy Social History Social History Housing: House Alcohol intake: current Alcohol intake frequency: a few times a month Alcohol type: beer and hard liquor Patient Tobacco Use Status: Former Tobacco user Tobacco use type: Cigarette Second Hand Smoke Exposure: No Advance Directives: Yes Advance Directives Information Provided: No Advance Directives on File: No service: No Current occupational status: retired Cognitive needs: No Hearing needs: No Vision needs: No Physical Exam ED Vital Signs: Vital Signs - 24 hr 03/05/22 12:15 03/05/22 15:34 03/05/22 16:24 Temperature 98.1 F 98.1 F 98.2 F Pulse Rate 79 64 96 Respiratory Rate 18 16 18 Blood Pressure 183/90 H 177/86 H 166/80 H Pulse Oximetry 98 98 98 Oxygen Delivery Method Room Air Room Air Room Air BMI result Body Mass Index 36.2 Const General: healthy appearing Nutritional Appearance: obese Orientation/consciousness: oriented to person and patient oriented x3 Limitations: no limitations HENMT Head: Yes normal to inspection Ears: external ears normal General nose exam: Normal external nose present Mouth: Normal oral and palatal mucosa present and oropharynx normal Throat: Yes posterior oropharynx normal Eyes General: appearance normal, both eyes and all related structures Neck Neck: Yes normal visual inspection Chest Chest palpation & inspection: normal inspection of the chest Resp Auscultation: clear to auscultation bilaterally Cardio Jugular venous distension: no JVD Rate: regular rate Rhythm: regular rhythm Heart sounds: S1 normal heart sound present and S2 normal heart sound present GI Inspection: Yes normal to inspection Palpation (GI): Soft to palpation, nontender and No hepatosplenomegaly present Auscultation: normal bowel sounds General: Yes no CVA tenderness Back/Spine/Pelvis Back: no CVA tenderness Skin General skin exam: no rashes or lesions noted Neuro General: oriented to person and patient oriented x3 Cranial nerves: Yes CN's II-XII intact bilaterally Motor exam (neuro): 5/5 motor strength present throughout Sensory Exam: No Sensory deficit (Neuro) Extrem General: Yes normal to inspection Psych Appearance: grossly normal Course Reevaluation(s) Reevaluation #1: No evidence of end organ damage, BP down to 160/88 will dc with follow up Time: 17:24 Medical Decision Making Lab Data Result diagrams: 03/05/22 12:32 03/05/22 12:32 Labs: Lab Results 03/05/22 03/05/22 03/05/22 Range/Units 12:32 12:32 12:32 WBC 7.7 (4.8-10.8) X10*3/uL RBC 4.66 (4.60-5.80) X10*6/uL Hgb 14.4 (14.0-18.0) g/dl Hct 43.0 (42.0-52.0) % MCV 92.3 (80.0-98.0) fL MCH 30.9 (27.0-33.0) pg MCHC 33.5 (31.0-36.0) g/dl RDW 13.7 (11.0-16.0) % Plt Count 239 (160-400) X10*3/uL MPV 9.3 L (9.4-12.4) fL Immature Gran % (Auto) 0.7 H (0.0-0.4) % Neut % (Auto) 71.2 (45-73) % Lymph % (Auto) 16.3 L (20-40) % [place] % (Auto) 9.3 (2-11) % Eos % (Auto) 2.0 (0-4) % Baso % (Auto) 0.5 (0-2) % Lymph # (Auto) 1.3 (1.2-4.9) X10*3/uL [place] # (Auto) 0.7 (0.1-1.2) X10*3/uL Eos # (Auto) 0.2 (0.0-0.4) X10*3/uL Baso # (Auto) 0.0 (0.0-0.2) X10*3/uL Abs Immat Gran (auto) 0.05 H (0.00-0.03) X10*3/uL Absolute Neuts (auto) 5.5 (2.0-8.3) x10*3/uL Absolute Nucleated RBC 0.000 (0.0-0.012) X10*3/uL Nucleated RBC % (auto) 0.0 (0.0-0.2) /100WBC Sodium 138 (135-145) mmol/L Potassium 4.3 (3.3-5.1) mmol/L Chloride 103 (96-108) mmol/L Carbon Dioxide 28 (22-29) mmol/L Anion Gap 11 L (12-20) BUN 8 L D (9-16) mg/dL Creatinine 0.85 (0.5-1.4) mg/dL Estim Creat Clear Calc 136.9 Estimated GFR > 60 Random Glucose 121 H (60-115) mg/dL Calcium 8.7 (8.4-10.2) mg/dL Troponin I High Sens 4.9 (<3.5-35.0) ng/L Urine Color Urine Appearance Urine pH (5.0-8.0) Ur Specific [place] (1.005-1.025) Urine Protein (NEG-TRACE) MG/DL Urine Glucose (UA) (NEG) MG/DL Urine Ketones (NEG) MG/DL Urine Blood (NEG) Urine Nitrite (NEG) Ur Leukocyte Esterase (NEG) 03/05/22 Range/Units 15:45 WBC (4.8-10.8) X10*3/uL RBC (4.60-5.80) X10*6/uL Hgb (14.0-18.0) g/dl Hct (42.0-52.0) % MCV (80.0-98.0) fL MCH (27.0-33.0) pg MCHC (31.0-36.0) g/dl RDW (11.0-16.0) % Plt Count (160-400) X10*3/uL MPV (9.4-12.4) fL Immature Gran % (Auto) (0.0-0.4) % Neut % (Auto) (45-73) % Lymph % (Auto) (20-40) % [place] % (Auto) (2-11) % Eos % (Auto) (0-4) % Baso % (Auto) (0-2) % Lymph # (Auto) (1.2-4.9) X10*3/uL [place] # (Auto) (0.1-1.2) X10*3/uL Eos # (Auto) (0.0-0.4) X10*3/uL Baso # (Auto) (0.0-0.2) X10*3/uL Abs Immat Gran (auto) (0.00-0.03) X10*3/uL Absolute Neuts (auto) (2.0-8.3) x10*3/uL Absolute Nucleated RBC (0.0-0.012) X10*3/uL Nucleated RBC % (auto) (0.0-0.2) /100WBC Sodium (135-145) mmol/L Potassium (3.3-5.1) mmol/L Chloride (96-108) mmol/L Carbon Dioxide (22-29) mmol/L Anion Gap (12-20) BUN (9-16) mg/dL Creatinine (0.5-1.4) mg/dL Estim Creat Clear Calc Estimated GFR Random Glucose (60-115) mg/dL Calcium (8.4-10.2) mg/dL Troponin I High Sens (<3.5-35.0) ng/L Urine Color YELLOW Urine Appearance CLEAR Urine pH 7.0 (5.0-8.0) Ur Specific [place] 1.010 (1.005-1.025) Urine Protein NEG (NEG-TRACE) MG/DL Urine Glucose (UA) NEG (NEG) MG/DL Urine Ketones NEG (NEG) MG/DL Urine Blood NEG (NEG) Urine Nitrite NEG (NEG) Ur Leukocyte Esterase NEG (NEG) ECG Data Attestation: I personally reviewed and interpreted this ECG as follows: Interpretation: normal sinus rate [address] or twave changes Discharge Plan Discharge Clinical Impression: Benign essential hypertension Patient Disposition: Home, Self-Care Instructions: Hypertension (ED) Prescriptions: No Action meclizine 25 mg tablet 25 mg PO TID PRN (Reason: dizziness) 10 Days Qty: 30 0RF loratadine 10 mg tablet 10 mg PO DAILY Qty: 30 11RF fluticasone propionate 50 mcg/actuation spray,suspension 2 spray intranasal BID Qty: 16 3RF metoprolol tartrate 100 mg tablet 100 mg PO BID Qty: 180 1RF amlodipine 5 mg tablet 5 mg PO DAILY Qty: 90 0RF aspirin 81 mg tablet,delayed release (DR/EC) 81 mg PO DAILY pantoprazole 40 mg tablet,delayed release (DR/EC) 40 mg PO DAILY 90 Days Qty: 90 3RF clonazepam 0.5 mg tablet 0.5 mg PO DAILY PRN (Reason: anxiety) 90 Days Qty: 90 0RF cholecalciferol (vitamin D3) 50 mcg (2,000 unit) capsule 50 mcg PO DAILY 90 Days Qty: 90 3RF valsartan-hydrochlorothiazide 320-25 mg tablet 1 tab PO DAILY 90 Days Qty: 90 3RF Referrals: Eber Claire MD [Primary Care Provider] - 1 week
[2022-03-05 15:34] VITALS: BP 177/86; PULSE 64; RESP 16; TEMP 36.7; O2SAT 98
[2022-03-05 15:53] LABS: Appearance Urine CLEAR; Color Urine YELLOW; Glucose Urine UA NEG (NEG); Leukocyte Esterase Urine NEG (NEG); Nitrite Urine NEG (NEG); Urine Blood NEG (NEG); Urine Ketones NEG (NEG); Urine Protein NEG (NEG-TRACE)
[2022-03-05 16:24] VITALS: BP 166/80; PULSE 96; RESP 18; TEMP 36.8; O2SAT 98
--- NOTE | 2022-03-05 16:30 | PC.NURSE ---
PATIENT A/O X4 . PEARLLA . HEART RATE REGULAR AT 97 BEATS .LUNGS CLEAR . SKIN PINK WARM AND DRY . ABDOMEN SOFT AND NON DISTENDED . PULSES PALPABLE AT ALL EXTREMITIES . PATIENT AWAITING LABS RESULTS . AWARE OF PLAN OF CARE .
== END 2022-03-05 18:31 | disposition home or self-care (01) ==
PROVIDERS: Emergency Provider Emergency Medicine; PCP Internal Medicine
DX: I10 Essential (primary) hypertension (principal); Z87.891 Personal history of nicotine dependence
CPT/HCPCS: 36415; 80048; 81003; 84484; 85025; 93005; 99284

== ENCOUNTER → 2022-05-08 07:39 | Outpatient (BNVA) | payer OTHER, SELFPAY | PROVIDERS: PCP Internal Medicine; Visit Provider Nurse Practitioner Family | DX: G47.33 Obstructive sleep apnea (adult) (pediatric) (principal); I10 Essential (primary) hypertension; E66.9 Obesity, unspecified | CPT/HCPCS: 99202 ==

== ENCOUNTER → 2022-06-05 14:36 | Outpatient (REF) | payer OTHER, SELFPAY | LOC: HO.SL 14:36 | PROVIDERS: PCP Internal Medicine; Visit Provider Nurse Practitioner Family | DX: G47.33 Obstructive sleep apnea (adult) (pediatric) (principal); E66.9 Obesity, unspecified; I10 Essential (primary) hypertension | CPT/HCPCS: 95806 ==

== ENCOUNTER 2022-07-23 06:11 | Outpatient (REF) | payer OTHER, SELFPAY ==
[2022-07-23 11:15] LABS: Appearance Urine Clear; Color Urine Yellow; Glucose Urine UA Negative (Negative); Leukocyte Esterase Urine Negative (Negative); Nitrite Urine Negative (Negative); Specific Gravity - Urine 1.015 (1.005-1.025); Urine Blood Negative (Negative); Urine Ketones Negative (Negative); Urine Protein Negative (Neg-Trace)
[2022-07-23 11:16] LABS: MANUAL DIFF FLAG NO
[2022-07-23 11:35] LABS: Basophils Absolute Auto 0.1 X10*3/uL (0.0-0.2); Eosinophils Absolute Auto 0.3 X10*3/uL (0.0-0.4); Eosinophils Percent Auto 4.9 % (0-4); Hemoglobin 14.5 g/dl (14.0-18.0); Imm Gran Abs Auto 0.03 X10*3/uL (0.00-0.03); Imm Gran Pct Auto 0.4 % (0.0-0.4); Lymphocytes Absolute Auto 1.3 X10*3/uL (1.2-4.9); Lymphocytes Percent Auto 18.5 % (20-40); Mean Corpuscular Hemoglobin 31.3 pg (27.0-33.0); Mean Corpuscular Volume 94.8 fL (80.0-98.0); Mean Platelet Volume 10.8 fL (9.4-12.4); Monocytes Absolute Auto 0.7 X10*3/uL (0.1-1.2); Monocytes Percent Auto 10.3 % (2-11); Neutrophils Absolute Auto 4.6 x10*3/uL (2.0-8.3); Neutrophils Percent Auto 64.9 % (45-73); Platelet Count 243 X10*3/uL (160-400); Red Blood Count 4.64 X10*6/uL (4.60-5.80); Red Cell Distribution Width 13.5 % (11.0-16.0)
[2022-07-23 11:45] LABS: Estimated Average Glucose 117 mg/dL; Hemoglobin A1c % 5.7 %
[2022-07-23 12:12] LABS: Alanine Aminotransferase 38 U/L (0-40); Albumin Level 3.7 g/dL (3.5-5.0); Alkaline Phosphatase 54 U/L (39-117); Anion Gap 13 (12-20); Aspartate Amino Transferase 34 U/L (5-37); Bilirubin Total 0.8 mg/dL (0.0-1.0); Blood Urea Nitrogen 13 mg/dL (9-16); Calcium 8.6 mg/dL (8.4-10.2); Carbon Dioxide 27 mmol/L (22-29); Chloride 102 mmol/L (96-108); Cholesterol 124 mg/dL; Estimated Glomerular Filt Rate > 60; Glucose Fasting 130 mg/dL (60-99); HDL Cholesterol 47 mg/dL; LDL Cholesterol Calculated 57 mg/dl; Sodium 138 mmol/L (135-145); Total Protein 6.2 g/dL (6.5-8.0); Triglycerides 100 mg/dL; Uric Acid 7.4 mg/dL (3.4-7.0)
[2022-07-23 12:33] LABS: TSH reflex Free T4 2.21 uIU/mL (0.32-4.0)
[2022-07-23 13:22] LABS: Vitamin D 25-OH Total 28.4 ng/mL (>30)
== END 2022-07-23 06:12 | disposition home or self-care (01) ==
LOC: HO.HMGCLDS 06:11
PROVIDERS: PCP Internal Medicine; Visit Provider Internal Medicine
DX: E55.9 Vitamin D deficiency, unspecified (principal); M10.9 Gout, unspecified; I10 Essential (primary) hypertension; E78.00 Pure hypercholesterolemia, unspecified; R73.01 Impaired fasting glucose
CPT/HCPCS: 36415; 80053; 80061; 81003; 82306; 83036; 84443; 84550; 85025

== ENCOUNTER → 2022-08-14 09:32 | Outpatient (BNVA) | payer OTHER, SELFPAY | PROVIDERS: PCP Nurse Practitioner Family; Visit Provider Physician Assistant | DX: M76.60 Achilles tendinitis, unspecified leg (principal) | CPT/HCPCS: 99202 ==

== ENCOUNTER 2022-09-13 06:38 | Emergency (ER) | payer OTHER, SELFPAY ==
--- NOTE | ~2022-09-13 | XR_ITS ---
EXAMINATION: XR CHEST CLINICAL INFORMATION: Cough. COMPARISON: None TECHNIQUE: Frontal view of the chest was obtained. FINDINGS: No significant abnormality is noted involving the heart, lungs, mediastinum, bony thorax or soft tissues. XR/XR chest 1V IMPRESSION: Unremarkable chest examination.
[2022-09-13 06:42] VITALS: BP 195/99; PULSE 102; RESP 18; TEMP 36.6; O2SAT 98; BMI 35.3
--- NOTE | 2022-09-13 06:48 | ECG_ITS ---
Test Reason : Chest pain Blood Pressure : / mmHG Vent. Rate : 071 BPM Atrial Rate : 071 BPM P-R Int : 196 ms QRS Dur : 100 ms QT Int : 374 ms P-R-T Axes : 048 000 034 degrees QTc Int : 406 ms Normal sinus rhythm Normal ECG When compared with ECG of 05-MAR-2022 12:16, No significant change was found Referred By: Generic ED Physician Electronically Signed By:Armen Blue
[2022-09-13 07:09] LABS: MANUAL DIFF FLAG NO
[2022-09-13 07:10] LABS: Basophils Absolute Auto 0.1 X10*3/uL (0.0-0.2); Basophils Percent Auto 0.8 % (0-2); Eosinophils Absolute Auto 0.3 X10*3/uL (0.0-0.4); Hemoglobin 15.8 g/dl (14.0-18.0); Imm Gran Abs Auto 0.03 X10*3/uL (0.00-0.03); Imm Gran Pct Auto 0.4 % (0.0-0.4); Lymphocytes Absolute Auto 1.6 X10*3/uL (1.2-4.9); Lymphocytes Percent Auto 19.6 % (20-40); Mean Corpuscular HGB Conc 34.3 g/dl (31.0-36.0); Mean Corpuscular Hemoglobin 31.2 pg (27.0-33.0); Mean Corpuscular Volume 90.7 fL (80.0-98.0); Mean Platelet Volume 9.3 fL (9.4-12.4); Monocytes Absolute Auto 0.7 X10*3/uL (0.1-1.2); Monocytes Percent Auto 8.4 % (2-11); Neutrophils Absolute Auto 5.3 x10*3/uL (2.0-8.3); Neutrophils Percent Auto 66.8 % (45-73); Platelet Count 233 X10*3/uL (160-400); Red Blood Count 5.07 X10*6/uL (4.60-5.80); Red Cell Distribution Width 13.8 % (11.0-16.0)
[2022-09-13 07:16] VITALS: BP 186/91; PULSE 75; RESP 14; O2SAT 96
--- NOTE | 2022-09-13 07:21 | ED_ITS ---
HPI - Chest Pain General Chief Complaint: Chest Pain Stated Complaint: chest pain Time Seen by Provider: 09/13/22 06:57 Source: patient Mode of arrival: ambulatory Limitations: no limitations History of Present Illness HPI narrative: 62-year-old male came in for evaluation of feeling palpitations since this morning. Patient woke up from sleep with a rapid heart rate and feeling palpitation with this patient had left-sided chest discomfort thought it might be his acid reflux, chest discomfort is very typical for the patient's acid reflux no radiation localized to the epigastric lower chest area, no syncope no dizziness. Patient also been having sinus and nasal congestion with the coughing started with yellow sputum now it is clear sputum otherwise declined fever or chills. Patient took his blood pressure medication this morning and his blood pressure noted to be high. Patient currently has no feeling of palpitation or chest pain. Related Data Home Medications Medication Instructions Recorded Confirmed aspirin 81 mg tablet,delayed 81 mg PO DAILY 10/26/20 07/30/22 release Previous Rx's Medication Instructions Recorded pantoprazole 40 mg tablet,delayed 40 mg PO DAILY 90 days #90 tabs 10/27/20 release loratadine 10 mg tablet 10 mg PO DAILY #30 tabs 07/11/22 amoxicillin 875 mg-potassium 1 tab PO Q12H #10 tabs 07/30/22 clavulanate 125 mg tablet cholecalciferol (vitamin D3) 50 50 mcg PO DAILY 90 days #90 caps 07/30/22 mcg (2,000 unit) capsule valsartan 320 mg tablet 320 mg PO DAILY 30 days #90 tabs 07/30/22 amlodipine 5 mg tablet 5 mg PO DAILY #90 tabs 08/04/22 metoprolol tartrate 100 mg tablet 100 mg PO BID #180 tabs 08/04/22 fluticasone propionate 50 2 spray intranasal BID #16 mL 09/05/22 mcg/actuation nasal spray,suspension Allergies Allergy/AdvReac Type Severity Reaction Status Date / Time colchicine [Colcrys] Allergy Unknown GI UPSET Verified 07/30/22 11:39 indomethacin Allergy Unknown tingling Verified 07/30/22 11:39 mouth Review of Systems Review of Systems: All other systems are reviewed and are negative Constitutional: Reports as per HPI and Reports no additional constitutional complaints Eyes: Reports as per HPI and Reports no additional eye complaints Reports system reviewed and no additional complaints, except as documented Cardiovascular: Reports as per HPI and Reports no additional cardiovascular complaints Respiratory: Reports as per HPI and Reports no additional respiratory complaints Gastrointestinal: Reports as per HPI and Reports no additional gastrointestinal complaints Genitourinary: Reports no additional female genitourinary complaints Musculoskeletal: Reports no additional musculoskeletal complaints Skin/Breast: Reports system reviewed and no additional complaints, except as docu Psychiatric: Reports no additional psychiatric complaints Endocrine: Reports no additional endocrine complaints Hematologic/Lymphatic: Reports no additional hematologic/lymphatic complaints Allergic/Immunologic: Reports no additional allergic/immunologic complaints Reports system reviewed and no additional complaints, except as documented and Reports Abnormal speech present [facility] Past Medical History Medical History Allergic rhinitis Anxiety Benign essential hypertension Bilateral hip pain Cervical disc disease Deviated septum Elevated LFTs GERD (gastroesophageal reflux disease) Gout Impaired fasting glucose Lumbar degenerative disc disease Normal colonoscopy (~03/17/14) Obesity (BMI 30-39.9) Obstructive sleep apnea Vitamin D deficiency Surgical History History of hernia repair Hx of appendectomy Social History Social History Housing: House Alcohol intake: current Alcohol intake frequency: 0-2 drinks per day Alcohol type: beer and hard liquor Patient Tobacco Use Status: Former Tobacco user Tobacco use type: Cigarette Smoked in Last 30 Days: No e-Cigarette/Vaping Use: Never Used Second Hand Smoke Exposure: No Use of substances other than those prescribed or required for medical reasons: No Advance Directives: No Advance Directives Information Provided: Yes service: No Current occupational status: retired Cognitive needs: No Hearing needs: No Vision needs: No Physical Exam Vital Signs: Vital Signs: Last Vital Signs Temp 97.2 F 09/13/22 08:28 Pulse 78 09/13/22 08:28 Resp 15 09/13/22 08:28 BP 169/87 H 09/13/22 08:28 Pulse Ox 97 09/13/22 08:28 O2 Del Method 09/13/22 08:28 BMI result Body Mass Index 35.3 Vital signs have been reviewed as appeared to be correct. Blood pressure no rmal. Heart rate normal. Respiration rate normal. Temperature normal. Oxygen saturation normal. Appearance: Alert. Oriented X3. No acute distress. Head: Normal external exam. Normocephalic. Atraumatic. No Mortensen signs noted. No raccoon eyes noted Eyes: PERRLA. EOMI. Conjunctiva and sclera normal. Eyelids normal. ENT: TM's Normal. Pharynx normal. Uvula midline. Moist mucous membranes. No trismus noted. No drooling noted. No muffled voice noted. Neck: Normal inspection. Neck supple. FROM. No adenopathy. Thyroid Normal. No meningeal signs. No neck mass noted. CVS: Normal heart rate and rhythm. Heart sound normal. No murmurs noted. Pulses normal throughout. Respiratory: No respiratory distress. Painless inspiration. Breath sounds normal. No wheezes/rales/rhonchi noted. Chest nontender. No accessory muscle usage noted or decreased air movement noted. Abdomen: Soft and nontender. Bowel sounds normal in all 4 quadrants. No distention noted. No organomegaly noted. No visible injury noted. Back: No CVA tenderness. Full range of motion noted. Skin: Skin warm and dry. Normal skin color. Normal skin turgor. No rashes/lesions/lacerations noted. Extremities: No lower extremity edema. Extremities exhibit normal range of motion. Extremities nontender. Neuro: Oriented X 3. Cranial nerve exam: II-XII are grossly intact No motor deficit. No sensory deficit. Reflexes normal. 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 Medical Decision Making Differential Diagnosis Differential Diagnoses: The differential diagnosis associated with the presentation includes (Palpitation, dysrhythmia, ACS, CHF, pneumonia, viral respiratory infection.) Lab Data MDM Lab Attestation statement: I reviewed the patient's lab results. 09/13/22 07:04 09/13/22 07:04 Labs: Lab Results 09/13/22 09/13/22 09/13/22 Range/Units 07:04 07:04 07:04 WBC 8.0 (4.8-10.8) X10*3/uL RBC 5.07 (4.60-5.80) X10*6/uL Hgb 15.8 (14.0-18.0) g/dl Hct 46.0 (42.0-52.0) % MCV 90.7 (80.0-98.0) fL MCH 31.2 (27.0-33.0) pg MCHC 34.3 (31.0-36.0) g/dl RDW 13.8 (11.0-16.0) % Plt Count 233 (160-400) X10*3/uL MPV 9.3 L (9.4-12.4) fL Immature Gran % (Auto) 0.4 (0.0-0.4) % Neut % (Auto) 66.8 (45-73) % Lymph % (Auto) 19.6 L (20-40) % [place] % (Auto) 8.4 (2-11) % Eos % (Auto) 4.0 (0-4) % Baso % (Auto) 0.8 (0-2) % Lymph # (Auto) 1.6 (1.2-4.9) X10*3/uL [place] # (Auto) 0.7 (0.1-1.2) X10*3/uL Eos # (Auto) 0.3 (0.0-0.4) X10*3/uL Baso # (Auto) 0.1 (0.0-0.2) X10*3/uL Abs Immat Gran (auto) 0.03 (0.00-0.03) X10*3/uL Absolute Neuts (auto) 5.3 (2.0-8.3) x10*3/uL Absolute Nucleated RBC 0.000 (0.0-0.012) X10*3/uL Nucleated RBC % (auto) 0.0 (0.0-0.2) /100WBC Sodium 139 (135-145) mmol/L Potassium 4.3 (3.3-5.1) mmol/L Chloride 105 (96-108) mmol/L Carbon Dioxide 23 (22-29) mmol/L Anion Gap 15 (12-20) BUN 14 (9-16) mg/dL Creatinine 0.78 (0.5-1.4) mg/dL Estim Creat Clear Calc 147.2 Estimated GFR > 60 Random Glucose 164 H (60-115) mg/dL Calcium 8.7 (8.4-10.2) mg/dL Troponin I High Sens 11.2 (<3.5-35.0) ng/L Influenza Type A (PCR) (Negative) Influenza Type B (PCR) (Negative) RSV RNA Qual (PCR) (Negative) SARS-CoV-2 RNA (RT-PCR) (Negative) 09/13/22 Range/Units 07:04 WBC (4.8-10.8) X10*3/uL RBC (4.60-5.80) X10*6/uL Hgb (14.0-18.0) g/dl Hct (42.0-52.0) % MCV (80.0-98.0) fL MCH (27.0-33.0) pg MCHC (31.0-36.0) g/dl RDW (11.0-16.0) % Plt Count (160-400) X10*3/uL MPV (9.4-12.4) fL Immature Gran % (Auto) (0.0-0.4) % Neut % (Auto) (45-73) % Lymph % (Auto) (20-40) % [place] % (Auto) (2-11) % Eos % (Auto) (0-4) % Baso % (Auto) (0-2) % Lymph # (Auto) (1.2-4.9) X10*3/uL [place] # (Auto) (0.1-1.2) X10*3/uL Eos # (Auto) (0.0-0.4) X10*3/uL Baso # (Auto) (0.0-0.2) X10*3/uL Abs Immat Gran (auto) (0.00-0.03) X10*3/uL Absolute Neuts (auto) (2.0-8.3) x10*3/uL Absolute Nucleated RBC (0.0-0.012) X10*3/uL Nucleated RBC % (auto) (0.0-0.2) /100WBC Sodium (135-145) mmol/L Potassium (3.3-5.1) mmol/L Chloride (96-108) mmol/L Carbon Dioxide (22-29) mmol/L Anion Gap (12-20) BUN (9-16) mg/dL Creatinine (0.5-1.4) mg/dL Estim Creat Clear Calc Estimated GFR Random Glucose (60-115) mg/dL Calcium (8.4-10.2) mg/dL Troponin I High Sens (<3.5-35.0) ng/L Influenza Type A (PCR) NEGATIVE (Negative) Influenza Type B (PCR) NEGATIVE (Negative) RSV RNA Qual (PCR) NEGATIVE (Negative) SARS-CoV-2 RNA (RT-PCR) POSITIVE A (Negative) Independent Interpretation I performed an independent interpretation of an: EKG (Normal sinus rhythm at 71 beats per minutes, normal intervals, no ST-T changes.) and Plain X-Ray (Chest: No acute pathology.) Radiology Impression Discussion of test interpretation with radiology: I have reviewed the radiologist's reading. Discharge Plan Discharge Clinical Impression: Benign essential hypertension, Palpitation, COVID-19 virus infection Patient Disposition: Home, Self-Care Instructions: COVID-19 (Coronavirus Disease 2019) (ED), Heart Palpitations (ED) Prescriptions: No Action loratadine 10 mg tablet 10 mg PO DAILY Qty: 30 11RF amlodipine 5 mg tablet 5 mg PO DAILY Qty: 90 0RF metoprolol tartrate 100 mg tablet 100 mg PO BID Qty: 180 1RF fluticasone propionate 50 mcg/actuation spray,suspension 2 spray intranasal BID Qty: 16 0RF aspirin 81 mg tablet,delayed release (DR/EC) 81 mg PO DAILY pantoprazole 40 mg tablet,delayed release (DR/EC) 40 mg PO DAILY 90 Days Qty: 90 3RF cholecalciferol (vitamin D3) 50 mcg (2,000 unit) capsule 50 mcg PO DAILY 90 Days Qty: 90 3RF valsartan 320 mg tablet 320 mg PO DAILY 30 Days Qty: 90 0RF amoxicillin-pot clavulanate 875-125 mg tablet 1 tab PO Q12H Qty: 10 0RF Referrals: Eber Claire MD [Primary Care Provider] - Armen Blue MD [Physician] -
[2022-09-13 07:35] LABS: Troponin-I High Sensitivity 11.2 ng/L (<3.5-35.0)
[2022-09-13 07:36] LABS: Anion Gap 15 (12-20); Blood Urea Nitrogen 14 mg/dL (9-16); Calcium 8.7 mg/dL (8.4-10.2); Carbon Dioxide 23 mmol/L (22-29); Chloride 105 mmol/L (96-108); Creatinine Clr Calc Pharmacy 147.2; Estimated Glomerular Filt Rate > 60; Glucose Random 164 mg/dL (60-115); Potassium 4.3 mmol/L (3.3-5.1); Sodium 139 mmol/L (135-145)
[2022-09-13 08:02] LABS: Influenza A PCR NEGATIVE (Negative); Influenza B PCR NEGATIVE (Negative); Resp Syncy Virus RNA Qual PCR NEGATIVE (Negative); SARS COV2 PCR INHOUSE POSITIVE (Negative)
[2022-09-13 08:28] VITALS: BP 169/87; PULSE 78; RESP 15; TEMP 36.2; O2SAT 97
[2022-09-13 08:49] LABS: B Type Natriuretic Peptide 13 pg/mL (<100)
--- NOTE | 2022-09-13 09:28 | PC.NURSE ---
pt resting comfortably in no apparent distress at this time, no chest pain/sob.nausea at this time. ns on the monitor and vs stable
[2022-09-13 10:08] VITALS: BP 148/81; PULSE 57; RESP 20
[2022-09-13 10:46] LABS: Troponin-I High Sensitivity 4.8 ng/L (<3.5-35.0)
[2022-09-13 10:48] VITALS: BP 164/82; PULSE 63; RESP 20
== END 2022-09-13 11:13 | disposition home or self-care (01) ==
PROVIDERS: Emergency Provider Emergency Medicine; PCP Internal Medicine
DX: U07.1 COVID-19 (principal); I10 Essential (primary) hypertension; R00.2 Palpitations; Z87.891 Personal history of nicotine dependence; Z79.899 Other long term (current) drug therapy
CPT/HCPCS: 0241U; 36415; 71045; 80048; 83880; 84484; 85025; 93005; 99283; 99285

== ENCOUNTER 2022-11-15 07:17 | Outpatient (REF) | payer OTHER, SELFPAY ==
[2022-11-15 09:13] LABS: Estimated Average Glucose 117 mg/dL; Hemoglobin A1c % 5.7 %
[2022-11-15 09:31] LABS: Alanine Aminotransferase 42 U/L (0-40); Alkaline Phosphatase 51 U/L (39-117); Anion Gap 15 (12-20); Aspartate Amino Transferase 41 U/L (5-37); Bilirubin Total 1.2 mg/dL (0.0-1.0); Blood Urea Nitrogen 17 mg/dL (9-16); Calcium 8.8 mg/dL (8.4-10.2); Carbon Dioxide 26 mmol/L (22-29); Chloride 102 mmol/L (96-108); Cholesterol 137 mg/dL; Estimated Glomerular Filt Rate > 60; Glucose Fasting 121 mg/dL (60-99); HDL Cholesterol 51 mg/dL; LDL Cholesterol Calculated 66 mg/dl; Potassium 4.6 mmol/L (3.3-5.1); Sodium 138 mmol/L (135-145); Total Protein 6.7 g/dL (6.5-8.0); Triglycerides 104 mg/dL
[2022-11-15 09:37] LABS: Vitamin D 25-OH Total 35.8 ng/mL (>30)
== END 2022-11-15 07:18 | disposition home or self-care (01) ==
LOC: HO.LAB 07:17
PROVIDERS: PCP Internal Medicine; Visit Provider Nurse Practitioner Family
DX: R73.01 Impaired fasting glucose (principal); E55.9 Vitamin D deficiency, unspecified; I10 Essential (primary) hypertension
CPT/HCPCS: 36415; 80053; 80061; 82306; 83036

== ENCOUNTER → 2023-03-27 13:41 | Outpatient (REF) | payer OTHER, SELFPAY ==
--- NOTE | 2023-03-27 13:45 | HM_ITS ---
Conclusion: 1. Patient was monitored for total period of 2 days and 16 hours 2. Baseline was normal sinus with average heart of 61 beats per minute 3. Frequent sinus bradycardia noted with 58% of time heart rate below 60 beats per minute without significant pauses 4. Rare ectopy noted 5. No patient reported events MTDD
--- NOTE | 2023-03-27 13:45 | CA_ITS ---
Transthoracic Echocardiogram Patient (Last, First, Middle): Abel Carrera R Gender: Male Date of : 1960 Age: 63 Procedure Date: 03/27/2023 Procedure Type: Transthoracic Echocardiogram Location: OP Height: 193.04 cm Weight: 129.28 kg BSA: 2.58 m2 Heart Rate: 57 bpm BP: 170 / 105 mmHg Redye Hand: BERNARDINO Nguyen MD: Eber Claire MD Forestry Aid Technician: Andi Valdovinos MD Symptoms: R00.2 - Palpitations Study Quality: Fair ECG Rhythm: Bradycardia Conclusions: - 1. Normal LV ejection fraction 55-60% 2. Normal cardiac valvular Doppler 3. Mildly dilated ascending aorta at 4 cm 4. No gross pericardial effusion Findings Left Ventricle Normal left ventricular size, thickness, and systolic function. The visually estimated ejection fraction is between 55-60%. Regional wall motion abnormalities can not be excluded due to suboptimal endocardial definition. Spectral Doppler is indicative of a normal filling pattern. Right Ventricle Normal right ventricular cavity size. There is normal right ventricular systolic function. Atria The left atrium is normal in size. Interatrial shunt cannot be excluded. The right atrium is normal in size. Aortic Valve Normal aortic valve structure and function. There is no aortic valve stenosis. There is no aortic valve regurgitation. Mitral Valve There is mild anterior and posterior mitral leaflet thickening. There is trace mitral valve regurgitation. There is no mitral valve stenosis. Pulmonic Valve The pulmonic valve was not well visualized. Tricuspid Valve The tricuspid valve was not well visualized. Tricuspid regurgitation envelope is inadequate for calculation of right ventricular systolic pressure. Normal right atrial pressure. Great Vessels The pulmonary artery was not well visualized. There is mild dilatation of the ascending aorta measuring 4.00 cm. Venous The inferior vena cava is normal in size and collapses greater than 50% with inspiration. Pericardium/Pleural There is no evidence of pericardial effusion. Prior Study Comparison No prior study available for comparison. Measurements 2D Linear Measurements IVSd: 1.40 0.6-0.9/0.6-1.0 cm LVIDd: 5.40 3.9-5.3/4.2-5.9 cm LVIDd Index: 2.09 2.4-3.2/2.2-3.1 cm/m2 LVIDs: 3.20 2.0-3.6 cm LVPWd: 1.30 0.7-1.1 cm LA Diam: 4.60 2.7-3.8/3.0-4.0 cm LAIDs Index: 1.78 1.5-2.3 cm/m2 LV Mass: 388.94 67-162/88-224 g LV Mass Index: 150.75 43-95/49-115 g/m2 LVOT Diam: 2.20 3.0+(-)1.3 cm 2D Systolic Function EF 4C: 51.10 >55% EF 2C: 56.90 >55% EF BiP: 54.60 >55% Mitral Valve MV Pk E: 0.64 MV PK A: 0.72 MV Decel Time: 190.00 E/A: 0.90 E'Lateral: 9.14 E'Medial: 5.87 E/E' Med: 10.90 E/E' Lat: 7.00 PHT: 56.00 MVA PHT: 3.93 Decel Howard: 3.36 Aortic Valve AoV Pk Omar: 1.20 AoV Mn Omar: 0.83 AoV VTI: 0.28 AoV Pk Grad: 6.00 Aov Mn Grad: 3.00 GUNJAN Cont.VTI: 3.13 LVOT LVOT Pk Omar: 1.01 LVOT Mn Omar: 0.67 LVOT VTI: 0.23 LVOT Pk Grad: 4.00 LVOT Mn Grad: 2.00 LVOT Diam: 2.20 LVOT Area: 3.80 Diastolic Function MV Pk E: 0.64 MV Pk A: 0.72 E/A: 0.90 E'Medial: 5.87 E/E' Med: 10.90 E' Laterial: 9.14 E/E' Lat: 7.00 Right Ventricle TAPSE (mm): 25.90 TVS' Omar: 11.50 Tricuspid Valve RA Press: 3.00 Great Vessels Aorta Sinus of Valsalva: 4.10 2.0-3.5 cm Ao Asc: 4.00 2.1-3.4 cm Pulmonary Valve PV Pk Omar: 1.28 Peak PV Grad: 7.00 Updated in Other Vendor System with Status of Final Andi Valdovinos MD electronically signed on 03/27/2023 3:24:28 PM with status of Final
== END ==
LOC: HO.CARD 13:41
PROVIDERS: PCP Internal Medicine; Visit Provider Internal Medicine
DX: R00.2 Palpitations (principal)
CPT/HCPCS: 93242; 93306

== ENCOUNTER → 2023-03-27 13:45 | Outpatient (BNV) | payer OTHER, SELFPAY | PROVIDERS: PCP Internal Medicine; Visit Provider Internal Medicine Cardiovascular Disease | DX: R00.1 Bradycardia, unspecified (principal) | CPT/HCPCS: 93244; 93306 ==

== ENCOUNTER 2023-06-05 06:04 | Outpatient (REF) | payer OTHER, SELFPAY | END 2023-06-05 06:05 | disposition home or self-care (01) | LOC: HO.HMGCLDS 06:04 | PROVIDERS: PCP Internal Medicine; Visit Provider Internal Medicine | DX: R30.0 Dysuria (principal); M10.9 Gout, unspecified; E78.00 Pure hypercholesterolemia, unspecified; E55.9 Vitamin D deficiency, unspecified; R73.01 Impaired fasting glucose; I10 Essential (primary) hypertension | CPT/HCPCS: 36415; 80053; 80061; 81003; 82306; 83036; 84443; 84550; 85025 ==

== ENCOUNTER 2023-06-10 09:41 | Outpatient (AMB) | payer OTHER, SELFPAY ==
[2023-06-10 09:46] VITALS: BP 162/94; PULSE 69; O2SAT 98; BMI 34.8
--- NOTE | 2023-06-10 09:46 | MHC.PC.OV ---
Vital Signs 06/10/23 09:46 Height 6 ft 4 in Weight 286 lb 4 oz BMI 34.8 BP 162/94 H Blood Pressure Location Lt brachial Position Sitting Pulse 69 Pulse Source Pulse Oximeter Pulse Oximetry (%) 98 Oxygen Delivery Method Room Air Intake Visit Reasons: HTN, hyperlipidemia, MORIS, heart fluttering Share Holder Required: No Accompanied by: Self / Same As Patient Allergies colchicine [Colcrys] Allergy (Unknown, Verified 06/10/23 10:38) GI UPSET indomethacin Allergy (Unknown, Verified 06/10/23 10:38) tingling mouth Medication List - Last Reconciled 06/10/23 by Eber Claire MD amlodipine 5 mg PO DAILY aspirin 81 mg PO DAILY blood pressure monitor As directed - with MEDIUM BP cuff blood pressure test kit-medium As directed cholecalciferol (vitamin D3) 50 mcg PO DAILY 90 days fluticasone propionate 50 mcg/actuation 2 sprays intranasal BID loratadine 10 mg PO DAILY metoprolol tartrate 100 mg PO BID pantoprazole 40 mg PO DAILY 90 days valsartan 320 mg PO DAILY 30 days Tobacco use date assessed: 06/10/23 Dental Screening Dental Screen Date: 06/10/23 Did you have a dental visit in the last 12 months?: Yes Did you have a dental problem in the last 6 months where you did not have access to dental care?: No Was dental information given to patient?: Patient has dentist HPI HTN, hyperlipidemia, MORIS, heart fluttering HPI Details Patient comes in today for his follow up visit States that he feels okay Is still experiencing on and off fluttering sensations of his heart although they are not occurring as often as they did before Would like to know how he did on his echocardiogram and Holter monitor done a few months ago States that he looked up his results on his own but there were a few things there that he did not understand He denies any headaches or dizziness Denies any chest pains, no SOB No nausea/vomiting, no abdominal pain No change in bowel habits noted Had his follow up labs done a few days ago - to discuss his results [facility] Medical History Vitamin D deficiency Elevated LFTs Impaired fasting glucose Gout Bilateral hip pain Lumbar degenerative disc disease Cervical disc disease Obesity (BMI 30-39.9) Anxiety Allergic rhinitis Benign essential hypertension Normal colonoscopy (~03/17/14) Obstructive sleep apnea GERD (gastroesophageal reflux disease) Deviated septum Surgical History History of hernia repair Hx of appendectomy Social History Housing: House Alcohol intake: current Alcohol intake frequency: 0-2 drinks per day Alcohol type: beer and hard liquor Patient Tobacco Use Status: Former Tobacco user Tobacco use type: Cigarette e-Cigarette/Vaping Use: Never Used Second Hand Smoke Exposure: No service: No Current occupational status: retired Cognitive needs: No Hearing needs: No Vision needs: No Questionnaire PHQ-9 Over the last 2 weeks, how often have you been bothered by any of the following problems? 1. Little interest or pleasure in doing things: not at all 2. Feeling down, depressed, or hopeless: not at all 3. Trouble falling or staying asleep, or sleeping too much: not at all 4. Feeling tired or having little energy: not at all 5. Poor appetite or overeating: not at all 6. Feeling bad about yourself - or that you are a failure or have let yourself or your family down: not at all 7. Trouble concentrating on things, such as reading the newspaper or watching television: not at all 8. Moving or speaking so slowly that other people could have noticed. Or the opposite - being so fidgety or restless that you have been moving around a lot more than usual: not at all 9. Thoughts that you would be better off or of hurting yourself in some way: not at all Total score: 0 Depression Screening Interpretation: Negative Depression Screening Done: Yes 83529 - PHQ-9 Billing: Yes Source: Developed by Drs. Reynaldo Garcia, Sherri Suarez, Arthur Lebron and colleagues, with an educational toshia from [employer]. Thrive Questionnaire Date Thrive assessed: 06/10/23 I am a: Patient What is your living situation today?: I have a steady place to live Within the past 12 months, did the food you bought not last and you didn't have the money to get more?: Never true Within the past 12 months, did you worry whether your food would run out before you got money to buy more?: Never true Do you have trouble paying for medicines?: No Do you have trouble getting transportation to medical appointments?: No Do you have trouble paying your heating and electricity bill?: No Do you have trouble taking care of your child, family member or friend?: No Do you have trouble with day-to-day activities such as bathing, preparing meals, shopping, managing finances, etc.?: No Are you currently unemployed and looking for a job?: No Are you interested in more education?: No Please select the resources that you would like help with: None Currently or been in a relationship where the following occur: no concerns reported AUDIT C Alcohol Use Questionnaire (AUDIT-C) 1. How often do you have a drink containing alcohol?: 2-4 times a month 2. How many drinks containing alcohol do you have on a typical day when you are drinking?: 1 or 2 3. How often do you have six or more drinks on one occasion?: Never Total Score: 2 Score Reviewed/Action Taken: Yes VIC-7 AMB Questionnaire VIC-7 Date VIC - 7 assessed: 06/10/23 Feeling nervous, anxious, or on edge: 0 = Not at all Not being able to stop or control worryin = Not at all Worrying too much about different things: 0 = Not at all Trouble relaxin = Not at all Being so restless that it is hard to sit still: 0 = Not at all Becoming easily annoyed or irritable: 0 = Not at all Feeling afraid as if something awful might happen: 0 = Not at all Total VIC-7 score (0-4 normal; 5-9 mild; 10-14 moderate; 15-21 severe): 0 Source: Developed by Drs. Reynaldo Garcia, Sherri Suarez, Arthur Lebron and colleagues, with an educational toshia from [employer]. Review of Systems Const Denies chills, Denies fatigue, Denies fever(s) and Denies headache(s) ENT Denies dysphagia, Denies dizziness, Denies otalgia, Denies headache(s), Reports neck pain (mild), Denies odynophagia and Denies sore throat Card Denies chest pain, Denies palpitations (still (+) occasional brief fluttering sensations of his heart) and Denies dyspnea Resp Denies cough and Denies dyspnea GI Denies abdominal pain, Denies constipation, Denies dysphagia, Denies heartburn, Denies diarrhea, Denies nausea, Denies odynophagia and Denies vomiting Denies dysuria, Denies nocturia and Denies urinary frequency Musc Reports back pain (over the lower back - mild) and Reports neck pain (mild) Skin/Breast Denies rash Neuro Denies dizziness and Denies headache(s) Endo Denies fatigue and Denies palpitations (still (+) occasional brief fluttering sensations of his heart) Physical exam (Primary Care) Vital Signs: Last Vital Signs Pulse 69 06/10/23 09:46 BP 162/94 H 06/10/23 09:46 Pulse Ox 98 06/10/23 09:46 Oxygen Delivery Method Room Air 06/10/23 09:46 BMI result Body Mass Index 34.8 Tobacco/Smoking Status: Tobacco use Status Tobacco use date assessed 06/10/23 06/10/23 10:01 Patient Tobacco Use Status Former Tobacco user 06/10/23 09:47 Tobacco use type Cigarette 06/10/23 09:47 e-Cigarette/Vaping Use Never Used 06/10/23 09:47 PHQ-9: PHQ-9 Score PHQ-9: Total score 0 06/10/23 10:53 Depression Screening Interpretation: Negative Thrive Assessment: Date of Thrive Assessment Date Thrive assessed 06/10/23 06/10/23 10:01 Currently or been in a relationship where the following occur: no concerns reported Const General: no acute distress and alert HENMT Ears: TM's normal bilaterally and EAC's normal Throat: Yes posterior oropharynx normal and Yes tonsils normal (no TP congestion noted) Neck Neck: Yes no lymphadenopathy and Yes supple Resp Auscultation: clear to auscultation bilaterally, no rales and no wheezes Cardio Rate: regular rate Rhythm: regular rhythm Heart sounds: no murmurs GI Palpation (GI): Soft to palpation and nontender Auscultation: normal bowel sounds Back/Spine/Pelvis Cervical Spine: Cervical spine tenderness Thoracic/Lumbar Spine: lumbar spinal tenderness Extrem General: Yes no clubbing, cyanosis or edema Results Reviewed Results Reviewed: Laboratory Tests 06/05/23 06:24 WBC 6.0 Hgb 14.5 Hct 43.9 Plt Count 237 Sodium 141 Potassium 4.3 Creatinine 0.84 Estimated GFR > 60 Fasting Glucose 119 H Hemoglobin A1c % 5.4 Uric Acid 8.1 H Calcium 8.8 AST 36 ALT 31 Triglycerides 94 Cholesterol 114 LDL Cholesterol, Calc 50 HDL Cholesterol 46 25-OH Vitamin D Total 33.5 TSH 1.38 Ur Specific [place] 1.020 Urine Protein Negative Urine Glucose (UA) Negative Urine Blood Negative Assessment and Plan Assessment & Plan (1) Fluttering sensation of heart: Code(s): R00.2 - Palpitations Plan: Patient is reassured that his echocardiogram and 3-day Holter monitor done a few months ago came out mostly normal although his echo did show a mild 4 cm dilatation of the ascending aorta Have advised him that the best way to keep this from progressing is tight control of his blood pressure He is scheduled to see cardiology next month for further evaluation and management of his cardiac symptoms (2) Benign essential hypertension: Code(s): I10 - Essential (primary) hypertension Plan: Reinforced low sodium diet - goal is systolic BP of at least 120 to 130 mm Continue Metoprolol 100 mg BID and Valsartan 320 mg QD - was previously taking Valsartan-HCT 320-25 mg QD but cut it down to 1/2 tablet a day as he could not tolerate the full dose (felt dizzy); the HCTZ component has been discontinued since Will try to increase his Amlodipine to 7.5 mg QD as his systolic BP has remained consistently high over the past few months, with today's reading at 162 mm and in light of his mild ascending aorta dilatation seen on echo recently Patient reminded to continue monitoring his blood pressure closely (3) Impaired fasting glucose: Code(s): R73.01 - Impaired fasting glucose Plan: FBS is again elevated on his recent labs at 119 mg/dl but his HgbA1c remains normal at 5.4% Reinforced low calorie/low carb diet; exercise as tolerated (4) Obstructive sleep apnea: Comment: uses CPAP. Code(s): G47.33 - Obstructive sleep apnea (adult) (pediatric) Plan: Continue using his BiPAP daily when sleeping at night - was diagnosed with MORIS many years ago and continues to benefit from the use of his BiPAP device (5) GERD (gastroesophageal reflux disease): Comment: EGD done 03/17/2014 Code(s): K21.9 - Gastro-esophageal reflux disease without esophagitis Qualifiers: Esophagitis presence: without esophagitis Qualified Code(s): K21.9 - Gastro-esophageal reflux disease without esophagitis Plan: Dietary restrictions reinforced Continue Pantoprazole 40 mg QD (6) Allergic rhinitis: Code(s): J30.9 - Allergic rhinitis, unspecified Qualifiers: Allergic rhinitis seasonality: unspecified Allergic rhinitis trigger: unspecified Qualified Code(s): J30.9 - Allergic rhinitis, unspecified Plan: Continue Fluticasone 50 mcg nasal spray QD PRN and Loratadine 10 mg QD PRN Has been seen by blueprint reader a couple of years ago but did not have the time to start getting the recommended allergy injections; patient states that he is now retired and can start injections if they are still recommended Was referred back to blueprint reader previously but allergy testing could not be done until patient is able to stay off his Metoprolol for a week - not recommended at this time as he is still struggling to get his blood pressure under control (7) Cervical disc disease: Code(s): M50.90 - Cervical disc disorder, unspecified, unspecified cervical region Plan: X-rays of the cervical spine done in the past (2012) showed (+) multilevel cervical spondylosis with high-grade neural foraminal narrowing on the right side at C3-C4 and C4-C5 and on the left at C3-C4 Repeat cervical spine x-rays done in January 2021 revealed (+) mild degenerative disc changes at C2-C3 with mild straightening of cervical lordosis suggestive of spasms Patient states that his neck pain/symptoms have been mostly manageable lately and he currently has no acute issues that needs to be addressed here (8) Lumbar degenerative disc disease: Code(s): M51.36 - Other intervertebral disc degeneration, lumbar region Plan: MRI of the lumbar spine done back in 2018 showed (+) lower lumbar spine spondylotic changes with far lateral left-sided disc protrusion at L3-L4 abutting the exiting left L3 nerve root and multilevel facet arthropathy but no central stenosis Repeat x-rays of the lumbar spine done back in January 2021 revealed (+) degenerative disc changes with ventral spondylosis over the upper and lower dorsal spine States that his low back pains have also been mostly manageable lately Reinforced activity and weight-lifting restrictions (9) Gout: Code(s): M10.9 - Gout, unspecified Qualifiers: Chronicity: unspecified Gout etiology: unspecified cause Gout site: unspecified site Qualified Code(s): M10.9 - Gout, unspecified Plan: His serum uric acid level is still slightly elevated at 8.1 on his recent labs - patient has not had any acute gout flare ups lately Reinforced low purine diet Will recheck/monitor serum uric acid level and labs in a few months for follow up (10) Elevated LFTs: Code(s): R79.89 - Other specified abnormal findings of blood chemistry Plan: Resolved on his recent labs - was most likely related to his weight (hepatosteatosis) Reinforced weight loss and exercise as tolerated; patient also advised to avoid alcohol and any Tylenol-containing medications Will recheck his LFTs in 4 months for follow up (11) Vitamin D deficiency: Code(s): E55.9 - Vitamin D deficiency, unspecified Plan: Continue Vitamin D3 2000 units QD (12) Anxiety: Code(s): F41.9 - Anxiety disorder, unspecified Plan: Continue Clonazepam 0.5 mg QD PRN - states that he has not had to take this in a while (13) Obesity (BMI 30-39.9): Code(s): E66.9 - Obesity, unspecified Plan: Reinforced diet/exercise as tolerated/lose weight Plan Follow up in 4 months Orders: Orders Complete Blood Count Auto Diff 4 Months I10 - Essential (primary) hypertension Comprehensive [place]. Panel Fast 4 Months E78.00 - Pure hypercholesterolemia, unspecified Lipid Panel 4 Months E78.00 - Pure hypercholesterolemia, unspecified TSH reflex Free T4 4 Months E78.00 - Pure hypercholesterolemia, unspecified Vitamin D 25-OH Total 4 Months E55.9 - Vitamin D deficiency, unspecified UA CC w/rflx Micro + Cult 4 Months R30.0 - Dysuria Medications: Changed From amlodipine 5 mg PO DAILY 90 tabs 0RF I10 - Essential (primary) hypertension To amlodipine 7.5 mg (1.5 x 5 mg) PO DAILY 135 tabs 3RF 90 days I10 - Essential (primary) hypertension Coding Level of Care Code Est Pt Level 4 (40184) Diagnoses Fluttering sensation of heart R00.2 Benign essential hypertension I10 Impaired fasting glucose R73.01 Obstructive sleep apnea G47.33 Gastroesophageal reflux disease without esophagitis K21.9 Esophagitis presence: without esophagitis Allergic rhinitis, unspecified seasonality, unspecified trigger J30.9 Allergic rhinitis seasonality: unspecified Allergic rhinitis trigger: unspecified Cervical disc disease M50.90 Lumbar degenerative disc disease M51.36 Gout, unspecified cause, unspecified chronicity, unspecified site M10.9 Chronicity: unspecified Gout etiology: unspecified cause Gout site: unspecified site Elevated LFTs R79.89 Vitamin D deficiency E55.9 Anxiety F41.9 Obesity (BMI 30-39.9) E66.9
== END 2023-06-10 10:58 | disposition home or self-care (01) ==
PROVIDERS: PCP Internal Medicine; Visit Provider Internal Medicine
DX: R00.2 Palpitations (principal); I10 Essential (primary) hypertension; R73.01 Impaired fasting glucose; G47.33 Obstructive sleep apnea (adult) (pediatric); K21.9 Gastro-esophageal reflux disease without esophagitis; J30.9 Allergic rhinitis, unspecified; M50.90 Cervical disc disorder, unspecified, unspecified cervical region; M51.36 Other intervertebral disc degeneration, lumbar region; M10.9 Gout, unspecified; R79.89 Other specified abnormal findings of blood chemistry; E55.9 Vitamin D deficiency, unspecified; E66.9 Obesity, unspecified
CPT/HCPCS: 99214

== ENCOUNTER 2023-07-20 10:38 | Outpatient (AMB) | payer OTHER, SELFPAY ==
--- NOTE | 2023-07-20 11:02 | MHC.OFFVIS ---
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 (R.S BY US) Intake Note: NPV Credentialing Coordinator Required: No Accompanied by: Self / Same As Patient Allergies colchicine [Colcrys] Allergy (Unknown, Verified 07/20/23 11:04) GI UPSET indomethacin Allergy (Unknown, Verified 07/20/23 11:04) tingling mouth Medication List - Last Reconciled 07/20/23 by Francisco Javier Jeter MD amlodipine 7.5 mg (1.5 x 5 mg) PO DAILY 90 days blood pressure monitor As directed - with MEDIUM BP cuff blood pressure test kit-medium As directed cholecalciferol (vitamin D3) 50 mcg PO DAILY 90 days clonazepam 0.25 mg PO BEDTIME fluticasone propionate 50 mcg/actuation 2 sprays intranasal BID loratadine 10 mg PO DAILY metoprolol tartrate 100 mg PO BID pantoprazole 40 mg PO DAILY 90 days valsartan 320 mg PO DAILY 30 days HPI HPI Comments History of Present Illness Details Abel is here for cardiac evaluation. Few months back, he thought he was having palpitations, but then was diagnosed with COVID rather. Otherwise, very rare palpitations but nothing on a regular basis. No anginal-type chest pains or shortness of breath or in fact anything cardiac sounding. He does not have any known coronary disease myocardial infarction or cardiomyopathy. He is on the overweight side but he is also quite tall. BMI is around 35. He states that his father had bypass surgery just around this age. Otherwise, seems to have high blood pressure and several blood pressures in the past or on the higher side. Does not seem well controlled. [facility] Medical History Vitamin D deficiency Elevated LFTs Impaired fasting glucose Gout Bilateral hip pain Lumbar degenerative disc disease Cervical disc disease Obesity (BMI 30-39.9) Anxiety Allergic rhinitis Benign essential hypertension Normal colonoscopy (~03/17/14) Obstructive sleep apnea GERD (gastroesophageal reflux disease) Deviated septum Surgical History History of hernia repair Hx of appendectomy Family History (Updated 07/20/23 @ 11:16 by Francisco Javier Jeter MD) Father S/P CABG (coronary artery bypass graft) Social History Housing: House Alcohol intake: current Alcohol intake frequency: 0-2 drinks per day Alcohol type: beer and hard liquor Patient Tobacco Use Status: Former Tobacco user Tobacco use type: Cigarette e-Cigarette/Vaping Use: Never Used Second Hand Smoke Exposure: No service: No Current occupational status: retired Cognitive needs: No Hearing needs: No Vision needs: No Review of Systems Const Denies chills, Denies daytime sleepiness, Denies fatigue, Denies fever(s), Denies frequent falls, Denies night sweats, Denies snoring, Denies weakness, Denies weight gain and Denies weight loss Eyes Denies loss of vision ENT Denies dizziness and Denies hearing loss Card Denies chest pain, Denies chest pain with activity, Denies syncope, Denies rapid heart rate, Denies edema, Denies claudication, Denies leg edema, Denies lightheadedness, Denies palpitations, Denies dyspnea, Denies dyspnea on exertion and Denies orthopnea Resp Denies cough, Denies excessive phlegm production, Denies dyspnea, Denies dyspnea on exertion, Denies snoring and Denies wheezing GI Denies abdominal pain, Denies hematochezia, Denies change in bowel habits, Denies change in stool character, Denies heartburn, Denies nausea and Denies vomiting Denies hematuria, Denies dysuria and Denies urinary frequency Musc Denies arthralgias, Denies muscle weakness, Denies numbness and Denies tingling Skin/Breast Denies nail changes and Denies rash Neuro Denies Abnormal speech present, Denies dizziness, Denies syncope, Denies frequent falls, Denies loss of vision, Denies memory loss, Denies numbness, Denies tingling and Denies weakness Psych Denies depression and Denies memory loss Endo Denies fatigue and Denies palpitations Aller/Immun Denies wheezing Physical Exam Vital Signs: Last Vital Signs Pulse 72 07/20/23 11:04 BP 160/90 H 07/20/23 11:04 BMI result Body Mass Index 34.9 Const General: comfortable and no acute distress Orientation/consciousness: patient oriented x3 HEENT Other: Unremarkable Head: Yes normal to inspection Neck Neck: Yes normal visual inspection Chest Chest palpation & inspection: normal inspection of the chest Resp Auscultation: clear to auscultation bilaterally Cardio Palpation: normal PMI Heart sounds: S1 normal heart sound present, S2 normal heart sound present, no gallops, no murmurs and no rubs GI Palpation (GI): Soft to palpation Back/Spine/Pelvis Other: unremarkable Skin General skin exam: no rashes or lesions noted Neuro General: patient oriented x3 Speech: No Abnormal speech present Extrem General: Yes normal to inspection Psych Mental Status: mental status grossly normal Assessment & Plan Assessment & Plan (1) HTN (hypertension): Code(s): I10 - Essential (primary) hypertension (2) Family history of CABG: Code(s): Z82.49 - Family history of ischemic heart disease and other diseases of the circulatory system (3) Ascending aorta dilatation: Code(s): I77.810 - Thoracic aortic ectasia (4) Obesity (BMI 30-39.9): Code(s): E66.9 - Obesity, unspecified Plan Last EKG with sinus rhythm at 71/Min; no significant ST-T changes and otherwise unremarkable. Echocardiogram with LVEF of 55-60%. Wall motion abnormalities could not be seen due to suboptimal endocardial definition. No significant valvular issues. Ascending aortic size 4 cm. In the Holter, underlying rhythm is sinus with some sinus bradycardia but otherwise unremarkable. Due to long history of uncontrolled hypertension as well as family history of bypass surgery in father, we can get a coronary CTA for further evaluation. Patient is agreeable to that. With regard to hypertension, not well controlled. He is on a combination of metoprolol, valsartan and amlodipine. We can go up on the amlodipine dosing. May need an additional agent like spironolactone/diuretic. For the mild ascending aortic dilatation, probably okay considering his height and weight. We can recheck in another year or so to see if there is any progression. Otherwise, with regard to weight, strongly recommended to lose some weight that will help immensely. Orders: Orders CT Cardiac Coronary Angio Today I25.10 - Atherosclerotic heart disease of [place] coronary artery without angina pectoris Medications: New amlodipine 10 mg PO DAILY 90 tabs 3RF Coding Level of Care Code New Pt Level 4 (46533) Diagnoses HTN (hypertension) I10 Family history of CABG Z82.49 Ascending aorta dilatation I77.810 Obesity (BMI 30-39.9) E66.9
[2023-07-20 11:04] VITALS: BP 160/90; PULSE 72; BMI 34.9
== END 2023-07-20 11:27 | disposition home or self-care (01) ==
PROVIDERS: PCP Internal Medicine; Visit Provider Internal Medicine
DX: I10 Essential (primary) hypertension (principal); Z82.49 Family history of ischemic heart disease and other diseases of the circulatory system; I77.810 Thoracic aortic ectasia; E66.9 Obesity, unspecified
CPT/HCPCS: 99204

== ENCOUNTER → 2023-07-20 10:38 | Outpatient (BNVA) | payer OTHER, SELFPAY | PROVIDERS: PCP Internal Medicine; Visit Provider Internal Medicine | DX: I25.10 Atherosclerotic heart disease of native coronary artery without angina pectoris (principal); R00.2 Palpitations; I10 Essential (primary) hypertension; I77.810 Thoracic aortic ectasia; E66.9 Obesity, unspecified; Z68.34 Body mass index [BMI] 34.0-34.9, adult | CPT/HCPCS: 99202 ==

== ENCOUNTER 2023-08-03 12:08 | Outpatient (AMB) | payer OTHER, SELFPAY ==
--- NOTE | 2023-08-03 12:35 | A.OFFVIS_ITS ---
Intake Vital Signs 08/03/23 12:36 Height 6 ft 4 in Weight 286 lb 9.615 oz BMI 34.9 BP 142/80 H Blood Pressure Location Lt brachial Position Sitting Pulse 82 Intake Visit Reasons: follow up CTA Intake Note: follow up Certified Ophthalmic Surgical Assistant Required: No Accompanied by: Self / Same As Patient Allergies colchicine [Colcrys] Allergy (Unknown, Verified 08/03/23 12:37) GI UPSET indomethacin Allergy (Unknown, Verified 08/03/23 12:37) tingling mouth Medication List - Last Reconciled 08/03/23 by Francisco Javier Jeter MD amlodipine 10 mg PO DAILY aspirin (Adult Aspirin Regimen) 81 mg PO DAILY blood pressure monitor As directed - with MEDIUM BP cuff blood pressure test kit-medium As directed cholecalciferol (vitamin D3) 50 mcg PO DAILY 90 days clonazepam 0.25 mg PO BEDTIME fluticasone propionate 50 mcg/actuation 2 sprays intranasal BID loratadine 10 mg PO DAILY metoprolol tartrate 100 mg PO BID pantoprazole 40 mg PO DAILY 90 days valsartan 320 mg PO DAILY 30 days HPI HPI Comments History of Present Illness Details Abel returns for follow-up. Recently seen in consultation. Few months back, he thought he was having palpitations, but then was diagnosed with COVID rather. Otherwise, very rare palpitations but nothing on a regular basis. No anginal-type chest pains or shortness of breath or in fact anything cardiac sounding. He has occasional nonspecific chest twinges, which are nonexertional and do not sound cardiac. He does not have any known coronary disease, myocardial infarction or cardiomyopathy. He is on the overweight side but he is also quite tall. BMI is around 35. He states that his father had bypass surgery just around this age. Otherwise, seems to have high blood pressure and several blood pressures in the past or on the higher side. Does not seem well controlled. Since last seen, he has undergone a coronary CTA. [facility] Medical History Vitamin D deficiency Elevated LFTs Impaired fasting glucose Gout Bilateral hip pain Lumbar degenerative disc disease Cervical disc disease Obesity (BMI 30-39.9) Anxiety Allergic rhinitis Benign essential hypertension Normal colonoscopy (~03/17/14) Obstructive sleep apnea GERD (gastroesophageal reflux disease) Deviated septum Surgical History History of hernia repair Hx of appendectomy Family History Father S/P CABG (coronary artery bypass graft) Social History Housing: House Alcohol intake: current Alcohol intake frequency: 0-2 drinks per day Alcohol type: beer and hard liquor Patient Tobacco Use Status: Former Tobacco user Tobacco use type: Cigarette e-Cigarette/Vaping Use: Never Used Second Hand Smoke Exposure: No service: No Current occupational status: retired Cognitive needs: No Hearing needs: No Vision needs: No Review of Systems Const Denies weakness ENT Denies dizziness Card Denies chest pain, Denies chest pain with activity, Denies syncope, Denies rapid heart rate, Denies pedal edema, Denies edema, Reports leg edema, Denies lightheadedness, Denies palpitations, Denies dyspnea, Denies dyspnea on exertion and Denies orthopnea Resp Denies cough, Denies dyspnea and Denies dyspnea on exertion GI Denies hematochezia and Denies change in stool character Musc Denies abnormal gait, Denies muscle cramps, Denies muscle weakness, Denies numbness, Denies radiating pain into limb and Denies tingling Neuro Denies abnormal gait, Denies dizziness, Denies syncope, Denies numbness, Denies tingling and Denies weakness Endo Denies palpitations Physical Exam Vital Signs: Last Vital Signs Pulse 82 08/03/23 12:36 BP 142/80 H 08/03/23 12:36 BMI result Body Mass Index 34.9 Const General: comfortable and no acute distress Orientation/consciousness: patient oriented x3 HEENT Other: Unremarkable Head: Yes normal to inspection Neck Neck: Yes normal visual inspection Chest Chest palpation & inspection: normal inspection of the chest Resp Auscultation: clear to auscultation bilaterally Cardio Palpation: normal PMI Heart sounds: S1 normal heart sound present, S2 normal heart sound present, no gallops, no murmurs and no rubs GI Palpation (GI): Soft to palpation Back/Spine/Pelvis Other: unremarkable Skin General skin exam: no rashes or lesions noted Neuro General: patient oriented x3 Extrem General: Yes normal to inspection Psych Mental Status: mental status grossly normal Assessment & Plan Assessment & Plan (1) Atherosclerotic cardiovascular disease: Code(s): I25.10 - Atherosclerotic heart disease of [place] coronary artery without angina pectoris (2) HTN (hypertension): Code(s): I10 - Essential (primary) hypertension Qualifiers: Hypertension type: primary hypertension Qualified Code(s): I10 - Essential (primary) hypertension (3) Ascending aorta dilatation: Code(s): I77.810 - Thoracic aortic ectasia (4) Obesity (BMI 30-39.9): Code(s): E66.9 - Obesity, unspecified Plan Last EKG with sinus rhythm at 71/Min; no significant ST-T changes and otherwise unremarkable. Echocardiogram with LVEF of 55-60%. Wall motion abnormalities could not be seen due to suboptimal endocardial definition. No significant valvular issues. Ascending aortic size 4 cm. In the Holter, underlying rhythm is sinus with some sinus bradycardia but otherwise unremarkable. In the coronary CTA, moderate stenosis in the distal segment of proximal LAD extending into mid LAD. Ostial 1st diagonal with probably less than 70% stenos is. Mild disease in the circumflex and right coronary artery. Overall, he has stable CAD but no overt angina per his description. We will do an exercise stress perfusion imaging to assess his functional capacity as well as for any clear LAD territory ischemia. For medications, continue aspirin. Blood pressure medications as well. He is on a good dose of beta-blockers. As the blood pressure is still high, add hydrochlorothiazide. BMP in a few days. We discussed about this today. Otherwise, his lipids already well controlled but due to the extent of CAD, we can add a small dose of rosuvastatin. Weight loss as much able. Follow-up in a few weeks time. Orders: Orders CA stress test Today R07.2 - Precordial pain NM cardiolite stress test Today R07.2 - Precordial pain Medications: New hydrochlorothiazide 25 mg PO DAILY 90 tabs 3RF rosuvastatin 10 mg PO DAILY 90 tabs 3RF Coding Level of Care Code Est Pt Level 4 (20973) Diagnoses Atherosclerotic cardiovascular disease I25.10 Primary hypertension I10 Hypertension type: primary hypertension Ascending aorta dilatation I77.810 Obesity (BMI 30-39.9) E66.9
[2023-08-03 12:36] VITALS: BP 142/80; PULSE 82; BMI 34.9
== END 2023-08-03 12:55 | disposition home or self-care (01) ==
PROVIDERS: PCP Internal Medicine; Visit Provider Internal Medicine
DX: I25.10 Atherosclerotic heart disease of native coronary artery without angina pectoris (principal); I10 Essential (primary) hypertension; I77.810 Thoracic aortic ectasia; E66.9 Obesity, unspecified
CPT/HCPCS: 99214

== ENCOUNTER → 2023-08-03 12:08 | Outpatient (BNVA) | payer OTHER, SELFPAY | PROVIDERS: PCP Internal Medicine; Visit Provider Internal Medicine | DX: I25.10 Atherosclerotic heart disease of native coronary artery without angina pectoris (principal); I77.810 Thoracic aortic ectasia; I10 Essential (primary) hypertension; E66.9 Obesity, unspecified; Z68.34 Body mass index [BMI] 34.0-34.9, adult | CPT/HCPCS: 99212 ==

== ENCOUNTER → 2023-09-17 08:52 | Outpatient (REF) | payer OTHER, SELFPAY ==
--- NOTE | ~2023-09-17 | NM_ITS ---
Exercise Myocardial perfusion study Indication: Precordial chest pain to evaluate for myocardial ischemia Technique: The patient was brought in for an exercise perfusion study on 09/17/2023. Patient performed exercise as per Kong protocol and was injected 45 mCi of sestamibi was given intravenously one target HR was achieved. Images were obtained using the SPECT gamma camera interlaced with the gating device. Images were obtained in supine position. Resting perfusion study was performed on 09/21/2023. Patient was administered 45 mCi of sestamibi intravenously at rest. Images were then obtained in supine position. Images obtained with and without CT attenuation. Total DLP 150 mGy-cm. Images were processed with the software and compared side to side in short axis, horizontal long axis and vertical long axis views. Findings: The stress perfusion study showed non attenuated images show mildly uptake basal inferior and inferoseptal wall of the LV myocardium. Remainder of the LV myocardium is normally perfused. Attenuation corrected images show normal uptake of radiotracer in all segments of LV myocardium.. The gated study shows normal LV systolic function with calculated LVEF of 50%. LV cavity is normal in size. The gated study shows normal systolic wall thickening and contraction of all segments. There is no transient ischemic dilation. Resting study shows nontender images show normal uptake of radiotracer in all segments of LV myocardium. Attenuation corrected images show normal uptake of radiotracer in all segments of LV myocardium. Gating at rest reveals normal systolic wall motion with ejection fraction at greater than 50%. The findings are consistent with likely normal myocardial perfusion. NM/NM cardiolite stress test Impression: 1. Normal myocardial perfusion 2. Gated LVEF is 50% 3. Transient ischemic dilatation not present Stress EKG is suggestive of ischemia
--- NOTE | 2023-09-17 08:55 | CA_ITS ---
Acquisition Time: 2023-09-17 09:16:25 Total Exercise Time: 00:08:00 Test Indications: CP Medications: SEE H Protocol: KONG Max HR: 144 BPM 91% of Pred: 158 BPM Max BP: 208/088 mmHG Max Work Load: 10.1 METS Exercise stress test exercise 8 min of Kong protocol achieving 91% MPHR, with mild SOB, no chest pain, with isolated PACs and PVCs, with resting 122/82 and exxagerated response of 208/88, with downsloping lead 2, 3, aVF V4-V6. Nuclear images pending. Test reviewed with Dr. Jeetr Downsoriana in lead three corrected with 12 lead EKG placement Referred By: Francisco Javier Jeter Overread By: Destiny Glynn
== END ==
LOC: HO.CARD 08:52
PROVIDERS: PCP Internal Medicine; Visit Provider Internal Medicine
DX: R07.2 Precordial pain (principal)
CPT/HCPCS: 78452; 93017; A9500

== ENCOUNTER → 2023-09-17 08:55 | Outpatient (BNV) | payer OTHER, SELFPAY | PROVIDERS: PCP Internal Medicine; Visit Provider Nurse Practitioner | DX: R07.2 Precordial pain (principal); R06.02 Shortness of breath | CPT/HCPCS: 78452; 93016; 93018 ==

== ENCOUNTER 2023-09-23 08:25 | Outpatient (AMB) | payer OTHER, SELFPAY ==
--- NOTE | 2023-09-23 08:37 | MHC.OFFVIS ---
Intake Vital Signs 09/23/23 08:38 Height 6 ft 4 in Weight 284 lb 6.341 oz BMI 34.6 BP 158/88 H Blood Pressure Location Lt brachial Position Sitting Pulse 62 Intake Visit Reasons: s/p mibi Intake Note: follow up Development Consultant Required: No Accompanied by: Self / Same As Patient Allergies colchicine [Colcrys] Allergy (Unknown, Verified 09/23/23 08:37) GI UPSET indomethacin Allergy (Unknown, Verified 09/23/23 08:37) tingling mouth Medication List - Last Reconciled 09/23/23 by Francisco Javier Jeter MD amlodipine 10 mg PO DAILY aspirin (Adult Aspirin Regimen) 81 mg PO DAILY atorvastatin 10 mg PO DAILY 90 days blood pressure monitor As directed - with MEDIUM BP cuff blood pressure test kit-medium As directed cholecalciferol (vitamin D3) 50 mcg PO DAILY 90 days clonazepam 0.25 mg PO BEDTIME fluticasone propionate 50 mcg/actuation 2 sprays intranasal BID hydrochlorothiazide 25 mg PO DAILY loratadine 10 mg PO DAILY metoprolol tartrate 100 mg PO BID pantoprazole 40 mg PO DAILY 90 days valsartan 320 mg PO DAILY 30 days HPI HPI Comments History of Present Illness Details Abel returns for follow-up. To recall, few months back, he thought he was having palpitations, but then was diagnosed with COVID rather. Otherwise, very rare palpitations but nothing on a regular basis. No anginal-type chest pains or shortness of breath or in fact anything cardiac sounding. He has occasional nonspecific chest twinges, which are nonexertional and do not sound cardiac. He does not have any known coronary disease, myocardial infarction or cardiomyopathy. He is on the overweight side but he is also quite tall. BMI is around 35. He states that his father had bypass surgery just around this age. He is completed echocardiogram, stress test as well as coronary CTA. [facility] Medical History Vitamin D deficiency Elevated LFTs Impaired fasting glucose Gout Bilateral hip pain Lumbar degenerative disc disease Cervical disc disease Obesity (BMI 30-39.9) Anxiety Allergic rhinitis Benign essential hypertension Normal colonoscopy (~03/17/14) Obstructive sleep apnea GERD (gastroesophageal reflux disease) Deviated septum Surgical History History of hernia repair Hx of appendectomy Family History Father S/P CABG (coronary artery bypass graft) Social History Housing: House Alcohol intake: current Alcohol intake frequency: 0-2 drinks per day Alcohol type: beer and hard liquor Patient Tobacco Use Status: Former Tobacco user Tobacco use type: Cigarette e-Cigarette/Vaping Use: Never Used Second Hand Smoke Exposure: No service: No Current occupational status: retired Cognitive needs: No Hearing needs: No Vision needs: No Review of Systems Const Denies weakness ENT Denies dizziness Card Denies chest pain, Denies chest pain with activity, Denies syncope, Denies rapid heart rate, Denies pedal edema, Denies edema, Denies leg edema, Denies lightheadedness, Denies palpitations, Denies dyspnea, Denies dyspnea on exertion and Denies orthopnea Resp Denies cough, Denies dyspnea and Denies dyspnea on exertion GI Denies hematochezia and Denies change in stool character Musc Denies abnormal gait, Denies muscle cramps, Denies muscle weakness, Denies numbness, Denies radiating pain into limb and Denies tingling Neuro Denies abnormal gait, Denies dizziness, Denies syncope, Denies numbness, Denies tingling and Denies weakness Endo Denies palpitations Physical Exam Vital Signs: Last Vital Signs Pulse 62 09/23/23 08:38 BP 158/88 H 09/23/23 08:38 BMI result Body Mass Index 34.6 Const General: comfortable and no acute distress Orientation/consciousness: patient oriented x3 HEENT Other: Unremarkable Head: Yes normal to inspection Neck Neck: Yes normal visual inspection Chest Chest palpation & inspection: normal inspection of the chest Resp Auscultation: clear to auscultation bilaterally Cardio Palpation: normal PMI Heart sounds: S1 normal heart sound present, S2 normal heart sound present, no gallops, no murmurs and no rubs GI Palpation (GI): Soft to palpation Back/Spine/Pelvis Other: unremarkable Skin General skin exam: no rashes or lesions noted Neuro General: patient oriented x3 Extrem General: Yes normal to inspection Psych Mental Status: mental status grossly normal Office Procedures EKG Details: EKG with sinus rhythm at 62/Min; CT prolongation to 202 millisecond; normal corrected QT; no significant ST-T changes. [id number], Complete Assessment & Plan Assessment & Plan (1) Atherosclerotic cardiovascular disease: Code(s): I25.10 - Atherosclerotic heart disease of [place] coronary artery without angina pectoris (2) HTN (hypertension): Code(s): I10 - Essential (primary) hypertension Qualifiers: Hypertension type: primary hypertension Qualified Code(s): I10 - Essential (primary) hypertension (3) Ascending aorta dilatation: Code(s): I77.810 - Thoracic aortic ectasia (4) Obesity (BMI 30-39.9): Code(s): E66.9 - Obesity, unspecified Plan Cardiac studies reviewed. Last EKG with sinus rhythm at 71/Min; no significant ST-T changes and otherwise unremarkable. Echocardiogram with LVEF of 55-60%. Wall motion abnormalities could not be seen due to suboptimal endocardial definition. No significant valvular issues. Ascending aortic size 4 cm. In the Holter, underlying rhythm is sinus with some sinus bradycardia but otherwise unremarkable. In the coronary CTA, moderate stenosis in the distal segment of proximal LAD extending into mid LAD. Ostial 1st diagonal with probably less than 70% stenosis. Mild disease in the circumflex and right coronary artery. With regard to FFR, diminished in the mid LAD and proximal D1. In the exercise stress test, he was able to exercise for 10.1 METS on Kong protocol and reached 91% of maximum predicted heart rate. No chest pain. Hypertensive blood pressure response. Some downsloping STs. However, perfusion imaging was unremarkable. Overall, he can be treated for stable coronary artery disease. He does not have any angina whatsoever. For medications, continue low-dose aspirin. Blood pressure does not seem well regulated. Recently, we increased the amlodipine dose. We also added hydrochlorothiazide. He is also on a good dose of beta-blockers and valsartan. He can try to lose some weight. Additionally, do home blood pressures. Next choice might be something like hydralazine. For statins, tried rosuvastatin but he had side effects and hence he has on a small dose of atorvastatin. Lipids are well controlled. We will see him in about 3 months' time, mainly to reassess blood pressure and make changes accordingly. Coding Level of Care Code Est Pt Level 4 (96724) Diagnoses Atherosclerotic cardiovascular disease I25.10 Primary hypertension I10 Hypertension type: primary hypertension Ascending aorta dilatation I77.810 Obesity (BMI 30-39.9) E66.9 CPT Codes EKG - CPT: [id number], Complete ([id number])
[2023-09-23 08:38] VITALS: BP 158/88; PULSE 62; BMI 34.6
== END 2023-09-23 08:55 | disposition home or self-care (01) ==
PROVIDERS: PCP Internal Medicine; Visit Provider Internal Medicine
DX: I25.10 Atherosclerotic heart disease of native coronary artery without angina pectoris (principal); I10 Essential (primary) hypertension; I77.810 Thoracic aortic ectasia; E66.9 Obesity, unspecified
CPT/HCPCS: 93010; 99214

== ENCOUNTER → 2023-09-23 08:25 | Outpatient (BNVA) | payer OTHER, SELFPAY | PROVIDERS: PCP Internal Medicine; Visit Provider Internal Medicine | DX: I25.10 Atherosclerotic heart disease of native coronary artery without angina pectoris (principal); I10 Essential (primary) hypertension; I77.810 Thoracic aortic ectasia; E66.9 Obesity, unspecified; Z68.34 Body mass index [BMI] 34.0-34.9, adult | CPT/HCPCS: 93005; 99212 ==

== ENCOUNTER 2023-10-15 06:01 | Outpatient (REF) | payer OTHER, SELFPAY ==
[2023-10-15 06:12] LABS: MANUAL DIFF FLAG NO
[2023-10-15 07:14] LABS: Basophils Absolute Auto 0.1 X10*3/uL (0.0-0.2); Basophils Percent Auto 0.8 % (0-2); Eosinophils Absolute Auto 0.3 X10*3/uL (0.0-0.4); Eosinophils Percent Auto 3.2 % (0-4); Hematocrit 44.5 % (42.0-52.0); Hemoglobin 14.7 g/dl (14.0-18.0); Imm Gran Abs Auto 0.04 X10*3/uL (0.00-0.03); Imm Gran Pct Auto 0.5 % (0.0-0.4); Lymphocytes Absolute Auto 1.5 X10*3/uL (1.2-4.9); Lymphocytes Percent Auto 17.4 % (20-40); Mean Corpuscular Hemoglobin 30.5 pg (27.0-33.0); Mean Corpuscular Volume 92.3 fL (80.0-98.0); Mean Platelet Volume 9.8 fL (9.4-12.4); Monocytes Absolute Auto 0.8 X10*3/uL (0.1-1.2); Monocytes Percent Auto 9.4 % (2-11); Neutrophils Absolute Auto 5.7 x10*3/uL (2.0-8.3); Neutrophils Percent Auto 68.7 % (45-73); Platelet Count 263 X10*3/uL (160-400); Red Blood Count 4.82 X10*6/uL (4.60-5.80); Red Cell Distribution Width 13.4 % (11.0-16.0); White Blood Count 8.3 X10*3/uL (4.8-10.8)
[2023-10-15 07:43] LABS: Alanine Aminotransferase 23 U/L (0-40); Albumin Level 3.9 g/dL (3.5-5.0); Alkaline Phosphatase 58 U/L (39-117); Anion Gap 13 (12-20); Aspartate Amino Transferase 25 U/L (5-37); Bilirubin Total 0.8 mg/dL (0.0-1.0); Blood Urea Nitrogen 14 mg/dL (9-16); Calcium 9.2 mg/dL (8.4-10.2); Carbon Dioxide 29 mmol/L (22-29); Chloride 101 mmol/L (96-108); Cholesterol 109 mg/dL (<200); Estimated Glomerular Filt Rate > 60; Glucose Fasting 119 mg/dL (60-99); HDL Cholesterol 46 mg/dL (>40); LDL Cholesterol Calculated 42 mg/dL (<100); Potassium 4.2 mmol/L (3.3-5.1); Sodium 139 mmol/L (135-145); Triglycerides 106 mg/dL (<150)
[2023-10-15 07:47] LABS: TSH reflex Free T4 1.82 uIU/mL (0.32-4.0); Vitamin D 25-OH Total 27.4 ng/mL (>30)
[2023-10-15 08:33] LABS: Appearance Urine Clear; Color Urine Yellow; Glucose Urine UA Negative (Negative); Leukocyte Esterase Urine Negative (Negative); Nitrite Urine Negative (Negative); Specific Gravity - Urine 1.015 (1.005-1.025); UMIC TRIGGER UACC YES; Urine Blood Trace (Negative); Urine Ketones Negative (Negative); Urine Protein Negative (Neg-Trace)
[2023-10-15 08:47] LABS: Bacteria Urine None Seen (None Seen); Hyaline Casts Urine 0-2 /LPF (0-2); Squamous Epithelial Cell Urine 0-2 /HPF (0-2); WBC Urine 0-5 /HPF (0-5)
== END 2023-10-15 06:02 | disposition home or self-care (01) ==
LOC: HO.LAB 06:01
PROVIDERS: PCP Internal Medicine; Visit Provider Internal Medicine
DX: I10 Essential (primary) hypertension (principal); E78.00 Pure hypercholesterolemia, unspecified; E55.9 Vitamin D deficiency, unspecified; R30.0 Dysuria
CPT/HCPCS: 36415; 80053; 80061; 81001; 82306; 84443; 85025

== ENCOUNTER 2023-10-16 09:14 | Outpatient (AMB) | payer OTHER, SELFPAY ==
[2023-10-16 09:17] VITALS: BP 130/90; PULSE 79; O2SAT 99; BMI 35.3
--- NOTE | 2023-10-16 09:17 | A.OFFPC_ITS ---
Vital Signs 10/16/23 09:17 Height 6 ft 4 in Weight 290 lb BMI 35.3 BP 130/90 H Blood Pressure Location Lt brachial Position Sitting Pulse 79 Pulse Source Pulse Oximeter Pulse Oximetry (%) 99 Oxygen Delivery Method Room Air Intake Visit Reasons: HTN, hyperlipidemia, GERD Servicing Rep Required: No Accompanied by: Self / Same As Patient Allergies colchicine [Colcrys] Allergy (Unknown, Verified 10/16/23 09:55) GI UPSET indomethacin Allergy (Unknown, Verified 10/16/23 09:55) tingling mouth Medication List - Last Reconciled 10/16/23 by Eber Claire MD amlodipine 10 mg PO DAILY aspirin (Adult Aspirin Regimen) 81 mg PO DAILY atorvastatin 10 mg PO DAILY 90 days blood pressure monitor As directed - with MEDIUM BP cuff blood pressure test kit-medium As directed cholecalciferol (vitamin D3) 50 mcg PO DAILY 90 days clonazepam 0.25 mg PO BEDTIME fluticasone propionate 50 mcg/actuation 2 sprays intranasal BID hydrochlorothiazide 25 mg PO DAILY loratadine 10 mg PO DAILY metoprolol tartrate 100 mg PO BID pantoprazole 40 mg PO DAILY 90 days valsartan 320 mg PO DAILY 30 days Tobacco use date assessed: 10/16/23 Dental Screening Dental Screen Date: 10/16/23 Did you have a dental visit in the last 12 months?: No Did you have a dental problem in the last 6 months where you did not have access to dental care?: No Was dental information given to patient?: No HPI HTN, hyperlipidemia, GERD HPI Details Patient comes in today for his follow up visit States that he feels okay He denies any headaches or dizziness Denies any chest pains, no SOB No nausea/vomiting, no abdominal pain No change in bowel habits noted Needs his Clonazepam Rx refilled Had his follow up labs done yesterday - to discuss his results [facility] Medical History Pure hypercholesterolemia Vitamin D deficiency Elevated LFTs Impaired fasting glucose Gout Bilateral hip pain Lumbar degenerative disc disease Cervical disc disease Obesity (BMI 30-39.9) Anxiety Allergic rhinitis Benign essential hypertension Normal colonoscopy (~03/17/14) Obstructive sleep apnea GERD (gastroesophageal reflux disease) Deviated septum Surgical History History of hernia repair Hx of appendectomy Family History Father S/P CABG (coronary artery bypass graft) Social History Housing: House Alcohol intake: current Alcohol intake frequency: 0-2 drinks per day Alcohol type: beer and hard liquor Patient Tobacco Use Status: Former Tobacco user Tobacco use type: Cigarette e-Cigarette/Vaping Use: Never Used Second Hand Smoke Exposure: No service: No Current occupational status: retired Cognitive needs: No Hearing needs: No Vision needs: No Questionnaire PHQ-9 Over the last 2 weeks, how often have you been bothered by any of the following problems? 1. Little interest or pleasure in doing things: not at all 2. Feeling down, depressed, or hopeless: not at all 3. Trouble falling or staying asleep, or sleeping too much: not at all 4. Feeling tired or having little energy: not at all 5. Poor appetite or overeating: not at all 6. Feeling bad about yourself - or that you are a failure or have let yourself or your family down: not at all 7. Trouble concentrating on things, such as reading the newspaper or watching television: not at all 8. Moving or speaking so slowly that other people could have noticed. Or the opposite - being so fidgety or restless that you have been moving around a lot more than usual: not at all 9. Thoughts that you would be better off or of hurting yourself in some way: not at all Total score: 0 Depression Screening Interpretation: Negative Depression Screening Done: Yes 98078 - PHQ-9 Billing: Yes Source: Developed by Drs. Reynaldo Garcia, Sherri Suarez, Arthur Lebron and colleagues, with an educational toshia from [employer]. Thrive Questionnaire Date Thrive assessed: 10/16/23 I am a: Patient What is your living situation today?: I have a steady place to live Within the past 12 months, did the food you bought not last and you didn't have the money to get more?: Never true Within the past 12 months, did you worry whether your food would run out before you got money to buy more?: Never true Do you have trouble paying for medicines?: No Do you have trouble getting transportation to medical appointments?: No Do you have trouble paying your heating and electricity bill?: No Do you have trouble taking care of your child, family member or friend?: No Do you have trouble with day-to-day activities such as bathing, preparing meals, shopping, managing finances, etc.?: No Are you currently unemployed and looking for a job?: No Are you interested in more education?: No Please select the resources that you would like help with: None Currently or been in a relationship where the following occur: no concerns reported THRIVE Score: 0 AUDIT C Alcohol Use Questionnaire (AUDIT-C) 1. How often do you have a drink containing alcohol?: 2-4 times a month 2. How many drinks containing alcohol do you have on a typical day when you are drinking?: 1 or 2 3. How often do you have six or more drinks on one occasion?: Never Total Score: 2 Score Reviewed/Action Taken: Yes VIC-7 AMB Questionnaire VIC-7 Date VIC - 7 assessed: 10/16/23 Feeling nervous, anxious, or on edge: 0 = Not at all Not being able to stop or control worryin = Not at all Worrying too much about different things: 0 = Not at all Trouble relaxin = Not at all Being so restless that it is hard to sit still: 0 = Not at all Becoming easily annoyed or irritable: 0 = Not at all Feeling afraid as if something awful might happen: 0 = Not at all Total VIC-7 score (0-4 normal; 5-9 mild; 10-14 moderate; 15-21 severe): 0 Source: Developed by Drs. Reynaldo Garcia, Sherri Suarez, Arthur Lebron and colleagues, with an educational toshia from [employer]. Review of Systems Const Denies chills, Denies fatigue, Denies fever(s) and Denies headache(s) ENT Denies dysphagia, Denies dizziness, Denies otalgia, Denies headache(s), Reports neck pain (mild), Denies odynophagia and Denies sore throat Card Denies chest pain, Denies palpitations and Denies dyspnea Resp Denies cough and Denies dyspnea GI Denies abdominal pain, Denies constipation, Denies dysphagia, Denies heartburn, Denies diarrhea, Denies nausea, Denies odynophagia and Denies vomiting Denies dysuria, Denies nocturia and Denies urinary frequency Musc Reports back pain (over the lower back - mild) and Reports neck pain (mild) Skin/Breast Denies rash Neuro Denies dizziness and Denies headache(s) Endo Denies fatigue and Denies palpitations Physical exam (Primary Care) Vital Signs: Last Vital Signs Pulse 79 10/16/23 09:17 BP 130/90 H 10/16/23 09:17 Pulse Ox 99 10/16/23 09:17 Oxygen Delivery Method Room Air 10/16/23 09:17 BMI result Body Mass Index 35.3 Tobacco/Smoking Status: Tobacco use Status Tobacco use date assessed 10/16/23 10/16/23 09:23 Patient Tobacco Use Status Former Tobacco user 10/16/23 09:23 Tobacco use type Cigarette 10/16/23 09:23 e-Cigarette/Vaping Use Never Used 10/16/23 09:23 PHQ-9: PHQ-9 Score PHQ-9: Total score 0 10/16/23 09:23 Depression Screening Interpretation: Negative Thrive Assessment: Date of Thrive Assessment Date Thrive assessed 10/16/23 10/16/23 09:23 Currently or been in a relationship where the following occur: no concerns reported Const General: no acute distress and alert HENMT Ears: TM's normal bilaterally and EAC's normal Throat: Yes posterior oropharynx normal and Yes tonsils normal (no TP congestion noted) Neck Neck: Yes no lymphadenopathy and Yes supple Resp Auscultation: clear to auscultation bilaterally, no rales and no wheezes Cardio Rate: regular rate Rhythm: regular rhythm Heart sounds: no murmurs GI Palpation (GI): Soft to palpation and nontender Auscultation: normal bowel sounds Back/Spine/Pelvis Cervical Spine: Cervical spine tenderness Thoracic/Lumbar Spine: lumbar spinal tenderness Extrem General: Yes no clubbing, cyanosis or edema Results Reviewed Results Reviewed: Laboratory Tests 10/15/23 10/15/23 06:05 06:10 WBC 8.3 Hgb 14.7 Hct 44.5 Plt Count 263 Sodium 139 Potassium 4.2 Creatinine 0.81 Estimated GFR > 60 Fasting Glucose 119 H Calcium 9.2 AST 25 ALT 23 Triglycerides 106 Cholesterol 109 LDL Cholesterol, Calc 42 HDL Cholesterol 46 25-OH Vitamin D Total 27.4 L TSH 1.82 Ur Specific [place] 1.015 Urine Protein Negative Urine Glucose (UA) Negative Urine Blood Trace H Urine Nitrite Negative Ur Leukocyte Esterase Negative Assessment and Plan Assessment & Plan (1) Benign essential hypertension: Code(s): I10 - Essential (primary) hypertension Plan: Reinforced low sodium diet - goal is systolic BP of at least 120 to 130 mm Continue Metoprolol 100 mg BID, Valsartan 320 mg QD, HCTZ 25 mg QD and Amlodipine 10 mg QD - he has been started back on HCTZ and his Amlodipine dose was rasied up to 10 mg QD after he's had his cardiac workups done over the past few months He is now seeing cardiology for follow up and management of this Patient is reminded to continue monitoring his blood pressure closely (2) Pure hypercholesterolemia: Code(s): E78.00 - Pure hypercholesterolemia, unspecified Plan: Results of his labs done yesterday reviewed and discussed with patient Reinforced low cholesterol diet Continue Atorvastatin 10 mg QD - he was started on this by cardiology when his CT angiogram done in July 2023 came back showing decreased FFR in the mid LAD and proximal D1 Will recheck his labs and fasting lipids in 4 months for follow up (3) Impaired fasting glucose: Code(s): R73.01 - Impaired fasting glucose Plan: FBS is again elevated on his recent labs at 119 mg/dl but his HgbA1c was normal at 5.4% when previously checked Reinforced low calorie/low carb diet; exercise as tolerated (4) Obstructive sleep apnea: Comment: uses CPAP. Code(s): G47.33 - Obstructive sleep apnea (adult) (pediatric) Plan: Continue using his BiPAP daily when sleeping at night - was diagnosed with MORIS many years ago and continues to benefit from the use of his BiPAP device (5) GERD (gastroesophageal reflux disease): Comment: EGD done 03/17/2014 Code(s): K21.9 - Gastro-esophageal reflux disease without esophagitis Qualifiers: Esophagitis presence: without esophagitis Qualified Code(s): K21.9 - Gastro-esophageal reflux disease without esophagitis Plan: Dietary restrictions reinforced Continue Pantoprazole 40 mg QD (6) Allergic rhinitis: Code(s): J30.9 - Allergic rhinitis, unspecified Qualifiers: Allergic rhinitis trigger: unspecified Allergic rhinitis seasonality: unspecified Qualified Code(s): J30.9 - Allergic rhinitis, unspecified Plan: Continue Fluticasone 50 mcg nasal spray QD PRN and Loratadine 10 mg QD PRN Has been seen by printing press machine operator a couple of years ago but did not have the time to start getting the recommended allergy injections; patient states that he is now retired and can start injections if they are still recommended Was referred back to printing press machine operator previously but allergy testing could not be done until patient is able to stay off his Metoprolol for a week (7) Cervical disc disease: Code(s): M50.90 - Cervical disc disorder, unspecified, unspecified cervical region Plan: X-rays of the cervical spine done in the past (2012) showed (+) multilevel cervical spondylosis with high-grade neural foraminal narrowing on the right side at C3-C4 and C4-C5 and on the left at C3-C4 Repeat cervical spine x-rays done in January 2021 revealed (+) mild degenerative disc changes at C2-C3 with mild straightening of cervical lordosis suggestive of spasms Patient states that his neck pain/symptoms have been mostly manageable lately and he currently has no acute issues that needs to be addressed here (8) Lumbar degenerative disc disease: Code(s): M51.36 - Other intervertebral disc degeneration, lumbar region Plan: MRI of the lumbar spine done back in 2018 showed (+) lower lumbar spine spondylotic changes with far lateral left-sided disc protrusion at L3-L4 abutting the exiting left L3 nerve root and multilevel facet arthropathy but no central stenosis Repeat x-rays of the lumbar spine done back in January 2021 revealed (+) degenerative disc changes with ventral spondylosis over the upper and lower dorsal spine States that his low back pains have also been mostly manageable lately Reinforced activity and weight-lifting restrictions (9) Gout: Code(s): M10.9 - Gout, unspecified Qualifiers: Gout site: unspecified site Gout etiology: unspecified cause Chronicity: unspecified Qualified Code(s): M10.9 - Gout, unspecified Plan: His serum uric acid level is still slightly elevated at 8.1 on his recent labs - patient has not had any acute gout flare ups lately Reinforced low purine diet Will recheck/monitor serum uric acid level and labs in a few months for follow up (10) Elevated LFTs: Code(s): R79.89 - Other specified abnormal findings of blood chemistry Plan: Resolved on his recent labs - was most likely related to his weight (hepatosteatosis) Reinforced weight loss and exercise as tolerated; patient also advised to avoid alcohol and any Tylenol-containing medications Will recheck his LFTs in 4 months for follow up (11) Vitamin D deficiency: Code(s): E55.9 - Vitamin D deficiency, unspecified Plan: Continue Vitamin D3 2000 units QD (12) Anxiety: Code(s): F41.9 - Anxiety disorder, unspecified Plan: Continue Clonazepam 0.5 mg QD PRN - Rx refilled (13) Obesity (BMI 30-39.9): Code(s): E66.9 - Obesity, unspecified Plan: Reinforced diet/exercise as tolerated/lose weight Plan Follow up in 4 months Orders: Orders Hemoglobin A1c 4 Months R73.01 - Impaired fasting glucose Complete Blood Count Auto Diff 4 Months D64.9 - Anemia, unspecified Lipid Panel 4 Months E78.00 - Pure hypercholesterolemia, unspecified TSH reflex Free T4 4 Months E78.00 - Pure hypercholesterolemia, unspecified UA CC w/rflx Micro + Cult 4 Months R30.0 - Dysuria Uric Acid 4 Months M10.9 - Gout, unspecified Comprehensive [place]. Panel Fast 4 Months E78.00 - Pure hypercholesterolemia, unspecified Vitamin D 25-OH Total 4 Months E55.9 - Vitamin D deficiency, unspecified Medications: Changed From clonazepam administer 30 minutes before bedtime 0.25 mg PO BEDTIME To clonazepam take 30 minutes before bedtime as needed 0.5 mg PO BEDTIME 30 days PRN 30 tabs 0RF anxiety Coding Level of Care Code Est Pt Level 4 (91158) Diagnoses Benign essential hypertension I10 Pure hypercholesterolemia E78.00 Impaired fasting glucose R73.01 Obstructive sleep apnea G47.33 Gastroesophageal reflux disease without esophagitis K21.9 Esophagitis presence: without esophagitis Allergic rhinitis, unspecified seasonality, unspecified trigger J30.9 Allergic rhinitis trigger: unspecified Allergic rhinitis seasonality: unspecified Cervical disc disease M50.90 Lumbar degenerative disc disease M51.36 Gout, unspecified cause, unspecified chronicity, unspecified site M10.9 Gout site: unspecified site Gout etiology: unspecified cause Chronicity: unspecified Elevated LFTs R79.89 Vitamin D deficiency E55.9 Anxiety F41.9 Obesity (BMI 30-39.9) E66.9
== END 2023-10-16 10:16 | disposition home or self-care (01) ==
PROVIDERS: PCP Internal Medicine; Visit Provider Internal Medicine
DX: I10 Essential (primary) hypertension (principal); E66.9 Obesity, unspecified; Z68.35 Body mass index [BMI] 35.0-35.9, adult; E78.00 Pure hypercholesterolemia, unspecified; R73.01 Impaired fasting glucose; G47.33 Obstructive sleep apnea (adult) (pediatric); K21.9 Gastro-esophageal reflux disease without esophagitis; J30.9 Allergic rhinitis, unspecified; M50.90 Cervical disc disorder, unspecified, unspecified cervical region; M51.36 Other intervertebral disc degeneration, lumbar region; M10.9 Gout, unspecified; E55.9 Vitamin D deficiency, unspecified
CPT/HCPCS: 99214

== ENCOUNTER 2023-11-04 11:43 | Day surgery (SDC) | payer OTHER, SELFPAY ==
--- NOTE | 2023-11-02 14:04 | P.CONAN_ITS ---
Documented by User: Alejandrina Patrick NP 11/02/23 14:09 HPI - Anesthesia Eval Consult details Narrative: 63yo M for Upper Endoscopy and Colonoscopy Follows [facility] [place]. Last office visit 08/2023. Stable CAD, no angina. [facility] Active Problems Active Problems: All Active Problems (Updated 10/16/23 @ 09:58 by Eber Claire MD) Pure hypercholesterolemia (Acute) Atherosclerotic cardiovascular disease (Acute) Ascending aorta dilatation (Acute) Family history of CABG (Acute) Fluttering sensation of heart (Acute) COVID-19 virus infection (Acute) Sinusitis (Acute) Achilles tendinitis (Acute) HTN (hypertension) (Acute) Strain of cervical portion of right trapezius muscle (Acute) Vitamin D deficiency (Acute) Annual physical exam (Acute) Elevated LFTs (Acute) Impaired fasting glucose (Acute) Gout (Acute) Bilateral hip pain (Acute) Lumbar degenerative disc disease (Acute) Cervical disc disease (Acute) Obesity (BMI 30-39.9) (Acute) Anxiety (Acute) GERD (gastroesophageal reflux disease) (Acute) Allergic rhinitis (Acute) Benign essential hypertension (Acute) Obstructive sleep apnea (Acute) Past Medical History Medical History (Updated 11/03/23 @ 11:37 by Nataliia Acosta, RN) Bianchi esophagus Hx of hiatal hernia CAD (coronary artery disease) Pure hypercholesterolemia Vitamin D deficiency Elevated LFTs Impaired fasting glucose Gout Bilateral hip pain Lumbar degenerative disc disease Cervical disc disease Obesity (BMI 30-39.9) Anxiety Allergic rhinitis Benign essential hypertension Normal colonoscopy (~03/17/14) Obstructive sleep apnea GERD (gastroesophageal reflux disease) Deviated septum Family History Family History Father S/P CABG (coronary artery bypass graft) Surgical History Surgical History (Updated 11/03/23 @ 11:38 by Nataliia Acosta, RN) History of nasal surgery H/O colonoscopy History of esophagogastroduodenoscopy (EGD) History of hernia repair Hx of appendectomy Social History Social History Housing: House Alcohol intake: current Alcohol intake frequency: 0-2 drinks per day Alcohol type: beer and hard liquor Patient Tobacco Use Status: Former Tobacco user Quit Date: 25 years Tobacco use type: Cigarette e-Cigarette/Vaping Use: Never Used Second Hand Smoke Exposure: No Use of substances other than those prescribed or required for medical reasons: No Are you DNR?: No Advance Directives: No Advance Directives Information Provided: Yes service: No Current occupational status: retired Cognitive needs: No Hearing needs: No Vision needs: No Meds Allergies Allergy/AdvReac Type Severity Reaction Status Date / Time colchicine [Colcrys] Allergy Unknown GI UPSET Verified 10/16/23 09:55 indomethacin Allergy Unknown tingling Verified 10/16/23 09:55 mouth Home Medications Medication Instructions Recorded Confirmed Last Taken Type aspirin 81 mg tablet,delayed 81 mg PO DAILY 08/03/23 11/04/23 Unknown History release (Adult Aspirin Regimen) Exam Pertinent Lab Results Pertinent Lab Results: Laboratory Tests 10/15/23 06:10 WBC 8.3 Hgb 14.7 Hct 44.5 Plt Count 263 Sodium 139 Potassium 4.2 Chloride 101 Carbon Dioxide 29 BUN 14 Creatinine 0.81 Narrative Narrative: EKG 08/2023 Details: EKG with sinus rhythm at 62/Min; TN prolongation to 202 millisecond; normal corrected QT; no significant ST-T changes. ECHO 2022 Conclusions: - 1. Normal LV ejection fraction 55-60% 2. Normal cardiac valvular Doppler 3. Mildly dilated ascending aorta at 4 cm 4. No gross pericardial effusion Per 08/2023 cardiac office visit note: In the coronary CTA, moderate stenosis in the distal segment of proximal LAD extending into mid LAD. Ostial 1st diagonal with probably less than 70% stenosis. Mild disease in the circumflex and right coronary artery. With regard to FFR, diminished in the mid LAD and proximal D1. In the exercise stress test, he was able to exercise for 10.1 METS on Kong protocol and reached 91% of maximum predicted heart rate. No chest pain. Hypertensive blood pressure response. Some downsloping STs. However, perfusion imaging was unremarkable. Holter 2022 Conclusion: 1. Patient was monitored for total period of 2 days and 16 hours 2. Baseline was normal sinus with average heart of 61 beats per minute 3. Frequent sinus bradycardia noted with 58% of time heart rate below 60 beats per minute without significant pauses 4. Rare ectopy noted 5. No patient reported events Assessment and Plan Assessment Anesthesia Assessment: Chart Reviewed Documented by User: Scott Winn MD 11/04/23 12:52 [facility] Past Medical History Medical History (Updated 11/03/23 @ 11:37 by Nataliia Acosta, RN) Bianchi esophagus Hx of hiatal hernia CAD (coronary artery disease) Pure hypercholesterolemia Vitamin D deficiency Elevated LFTs Impaired fasting glucose Gout Bilateral hip pain Lumbar degenerative disc disease Cervical disc disease Obesity (BMI 30-39.9) Anxiety Allergic rhinitis Benign essential hypertension Normal colonoscopy (~03/17/14) Obstructive sleep apnea GERD (gastroesophageal reflux disease) Deviated septum Family History Family History Father S/P CABG (coronary artery bypass graft) Family history of problems with anesthesia: No Surgical History Surgical History (Updated 11/03/23 @ 11:38 by Nataliia Acosta RN) History of nasal surgery H/O colonoscopy History of esophagogastroduodenoscopy (EGD) History of hernia repair Hx of appendectomy History of Problems with Anesthesia: No Social History Social History Housing: House Alcohol intake: current Alcohol intake frequency: 0-2 drinks per day Alcohol type: beer and hard liquor Patient Tobacco Use Status: Former Tobacco user Quit Date: 25 years Tobacco use type: Cigarette e-Cigarette/Vaping Use: Never Used Second Hand Smoke Exposure: No Use of substances other than those prescribed or required for medical reasons: No Are you DNR?: No Advance Directives: No Advance Directives Information Provided: Yes service: No Current occupational status: retired Cognitive needs: No Hearing needs: No Vision needs: No Meds Allergies Allergy/AdvReac Type Severity Reaction Status Date / Time colchicine [Colcrys] Allergy Unknown GI UPSET Verified 10/16/23 09:55 indomethacin Allergy Unknown tingling Verified 10/16/23 09:55 mouth Home Medications Medication Instructions Recorded Confirmed Last Taken Type aspirin 81 mg tablet,delayed 81 mg PO DAILY 08/03/23 11/04/23 Unknown History release (Adult Aspirin Regimen) Exam Airway Mallampati Class: IV TM Dist: <=3cm Neck ROM: Full Loose/Missing/Broken Teeth: No Heart: rrr Lungs: cta b/l Assessment and Plan Final Anesthetic Review Family History of Problems with Anesthesia: No History of Problems with Anesthesia: No NPO: Yes ASA Class: III Final Preanesthetic Review: No Changes in Pt Med Stat, Meds/Allgs Chart Reviewed, Consent Obtained/Reviewed and Anes Risks/Benef Reviewed Patient Risk: Intermediate Procedure Risk: Intermediate Anesthetic Plan Anesthetic Plan: MAC: Disposition: Standard PACU
[2023-11-04 12:17] VITALS: BMI 34.4
[2023-11-04 12:23] VITALS: BP 179/73; PULSE 98; RESP 18; TEMP 36.5; O2SAT 98
[2023-11-04] MEDS: Lactated Ringers 1,000 ML 100 ML IVCONT (12:38)
--- NOTE | 2023-11-04 12:54 | MHC.SHP ---
Pre-Procedural Eval Section A - 24 Hr Update-Section A only Date of Service: 11/04/23 The patient is an INPATIENT: No Changes since office visit: No Cold of Flu in the past 2 weeks, No New Medical Problems, No Changes in Medication and No Patient answered all questions The patient has been examined within 24 hours of the surgical procedure. The History & Physical has been completed within 30 days and I have reviewed it.: Yes Section B - Complete if H&P > 30 days Chief Complaint: Bianchi's esophagus,screening Allergies: Allergies Allergy/AdvReac Type Severity Reaction Status Date / Time colchicine [Colcrys] Allergy Unknown GI UPSET Verified 10/16/23 09:55 indomethacin Allergy Unknown tingling Verified 10/16/23 09:55 mouth Plan I have reviewed the history and physical and performed a pertinent physical examination on my patient. No changes have occurred unless specified. Time Spent With Patient Time: Total time managing care of this patient today ____ minutes.
[2023-11-04 13:46] VITALS: BP 147/78; PULSE 88; RESP 19; TEMP 36.7; O2SAT 98
[2023-11-04 14:01] VITALS: BP 148/76; PULSE 68; RESP 20; O2SAT 97
[2023-11-04 14:15] VITALS: BP 160/94; PULSE 60; RESP 16; TEMP 36.8; O2SAT 98
--- NOTE | 2023-11-04 14:33 | OP_ITS ---
DATE OF SERVICE: 11/04/2023 SURGEON: August Khan MD INDICATIONS: 1. Bianchi esophagus. 2. Colon cancer screening. PREOPERATIVE DIAGNOSIS: POSTOPERATIVE DIAGNOSIS: PROCEDURE PERFORMED: Upper endoscopy with biopsy, colonoscopy to the terminal ileum with biopsy. ESTIMATED BLOOD LOSS: COMPLICATIONS: ANESTHESIA: Monitored anesthesia care. ASSISTANTS: SPECIMENS: DESCRIPTION OF PROCEDURE: A history and physical was performed. The risks and benefits of the procedure were explained to the patient. Informed consent was obtained. The patient was placed in the left lateral decubitus position. The Olympus video gastroscope was introduced into the esophagus, stomach, and duodenum. Examination was performed. The scope was removed. He was repositioned for colonoscopy. A digital rectal exam was performed and was found to be normal. The Olympus pediatric video colonoscope was introduced into the rectum and advanced to the cecum with the assistance of abdominal wall pressure. The cecum was identified by transillumination, palpation, and identification of ileocecal valve. Examination was performed. The scope was removed. He tolerated both procedures well and was returned to recovery area in stable condition. FINDINGS: Upper endoscopy: 1. Esophagus: The esophagus showed a 1 cm area of Bianchi esophagus. Biopsies were obtained at the EG junction at 43 cm. No raised lesions or ulcerated areas were identified. 2. Stomach: The stomach showed no evidence of masses, ulcers, or polyps. 3. Duodenum: The bulb and 2nd portion were normal. Random biopsies were obtained from the 2nd portion because of the patient's history of duodenitis. Colonoscopy: The terminal ileum was examined and appeared normal. The visualized colonic mucosa was normal. There was some stool coating the mucosa throughout the colon. This was washed and suctioned as best possible. This limited the sensitivity examination for detection of small polyps. A single polyp measuring less than 5 mm was identified at 80 cm in the anal verge, removed with biopsy forceps. No other polyps were identified. Retroflexed examination showed small internal hemorrhoids. IMPRESSION: 1. Bianchi esophagus. 2. Colon polyp. RECOMMENDATION: Follow up the biopsy results. MD MELANY Souza/CYNDY / [id number] MTDD
== END 2023-11-04 15:21 | disposition home or self-care (01) ==
PROVIDERS: PCP Internal Medicine; Visit Provider Internal Medicine Gastroenterology
PROC: (CPT 45380; principal; 2023-11-04 13:00)
DX: Z12.11 Encounter for screening for malignant neoplasm of colon (principal); D12.4 Benign neoplasm of descending colon; K64.8 Other hemorrhoids; K22.70 Barrett's esophagus without dysplasia; K21.9 Gastro-esophageal reflux disease without esophagitis; I25.10 Atherosclerotic heart disease of native coronary artery without angina pectoris; I10 Essential (primary) hypertension; G47.33 Obstructive sleep apnea (adult) (pediatric); Z79.899 Other long term (current) drug therapy; Z99.89 Dependence on other enabling machines and devices; Z79.51 Long term (current) use of inhaled steroids; Z79.82 Long term (current) use of aspirin
CPT/HCPCS: 45380; 43239; 88305; 88313; J2704

== ENCOUNTER 2024-01-11 08:37 | Outpatient (AMB) | payer OTHER, SELFPAY ==
--- NOTE | 2024-01-11 08:39 | A.OFFVIS_ITS ---
Vital Signs 01/11/24 08:40 Height 6 ft 4 in Weight 292 lb 5.327 oz BMI 35.6 BP 138/82 Blood Pressure Location Lt brachial Position Sitting Pulse 68 Pulse Source Pulse Oximeter Intake Visit Reasons: r/s 12/24/23 3 mos followup Rag Grader Required: No Allergies indomethacin Allergy (Unknown, Verified 01/11/24 08:41) tingling mouth Medication List - Last Reconciled 01/11/24 by Judith Hudson SLEDGER-C amlodipine 10 mg PO DAILY aspirin (Adult Aspirin Regimen) 81 mg PO DAILY atorvastatin 10 mg PO DAILY 90 days blood pressure monitor As directed - with MEDIUM BP cuff blood pressure test kit-medium As directed cholecalciferol (vitamin D3) 50 mcg PO DAILY 90 days clonazepam 0.5 mg PO BEDTIME PRN 30 days fluticasone propionate 50 mcg/actuation 2 sprays intranasal BID hydrochlorothiazide 25 mg PO DAILY loratadine 10 mg PO DAILY metoprolol tartrate 100 mg PO BID pantoprazole 40 mg PO DAILY 90 days valsartan 320 mg PO DAILY 30 days HPI HPI r/s 12/24/23 3 mos followup: Details: Abel is a 63-year-old male with past medical history of obesity, hypertension, impaired fasting glucose, hyperlipidemia, obstructive sleep apnea with CPAP use, coronary artery disease, dilated ascending aorta who presents for follow-up. Today he reports he has been doing well since his last visit. He has no concerning symptoms. He denies chest discomfort at rest or with activity. No shortness of breath, palpitations, lightheadedness, presyncope, syncope, falls, PND, orthopnea or edema. He has been golfing routinely which he tolerates well. He does use a cart. He is compliant with his medications. [facility] Medical History Bianchi esophagus Hx of hiatal hernia CAD (coronary artery disease) Pure hypercholesterolemia Vitamin D deficiency Elevated LFTs Impaired fasting glucose Gout Bilateral hip pain Lumbar degenerative disc disease Cervical disc disease Obesity (BMI 30-39.9) Anxiety Allergic rhinitis Benign essential hypertension Normal colonoscopy (~03/17/14) Obstructive sleep apnea GERD (gastroesophageal reflux disease) Deviated septum Surgical History History of nasal surgery H/O colonoscopy History of esophagogastroduodenoscopy (EGD) History of hernia repair Hx of appendectomy Family History Father S/P CABG (coronary artery bypass graft) Social History Housing: House Alcohol intake: current Alcohol intake frequency: 0-2 drinks per day Alcohol type: beer and hard liquor Patient Tobacco Use Status: Former Tobacco user Quit Date: 25 years Tobacco use type: Cigarette e-Cigarette/Vaping Use: Never Used Second Hand Smoke Exposure: No service: No Current occupational status: retired Cognitive needs: No Hearing needs: No Vision needs: No Review of Systems Const All systems reviewed & are unremarkable except as noted in HPI and below ENT Denies dizziness Card Denies chest pain, Denies chest pain at rest, Denies chest pain with activity, Denies rapid heart rate, Denies pedal edema, Denies edema, Denies leg edema, Denies lightheadedness, Denies palpitations, Denies dyspnea, Denies dyspnea on exertion and Denies orthopnea Resp Denies cough, Denies dyspnea and Denies dyspnea on exertion GI Denies hematochezia and Denies change in stool character Musc Denies abnormal gait, Denies limited range of motion, Denies muscle cramps, Denies muscle weakness, Denies numbness, Denies radiating pain into limb, Denies stiffness and Denies tingling Neuro Denies abnormal gait, Denies dizziness, Denies numbness and Denies tingling Endo Denies palpitations Physical Exam Vital Signs: Last Vital Signs Pulse 68 01/11/24 08:40 BP 138/82 01/11/24 08:40 BMI result Body Mass Index 35.6 Const General: cooperative, healthy appearing, comfortable and no acute distress Orientation/consciousness: patient oriented x3 Neck Neck: Yes normal visual inspection Resp Effort & Inspection: normal respiratory effort Auscultation: clear to auscultation bilaterally, no crackles, no rales, no rhonchi and no wheezes Cardio Jugular venous distension: no JVD Rate: regular rate Rhythm: regular rhythm Heart sounds: S1 normal heart sound present, S2 normal heart sound present, no murmurs and no rubs Neuro General: patient oriented x3 Extrem General: Yes normal to inspection and No no pedal edema Psych Appearance: grossly normal Mental Status: mental status grossly normal Speech and movement: Normal speech and movement present Assessment & Plan Assessment & Plan (1) Atherosclerotic cardiovascular disease: Code(s): I25.10 - Atherosclerotic heart disease of [place] coronary artery without angina pectoris Category: Medical Plan: Newer finding of CAD based on cardiac testing. Cardiac risk factors of hypertension, hyperlipidemia, impaired fasting glucose, obesity, family history. Last EKG 09/23/2023 with sinus rhythm at 62/Min; no significant ST-T changes. Echocardiogram 03/27/2023 with LVEF of 55-60%, Wall motion abnormalities could not be seen due to suboptimal endocardial definition, No significant valvular issues, Ascending aortic size 4 cm. Holter done 03/27/2023 showed underlying rhythm is sinus with some sinus bradycardia but otherwise unremarkable. A coronary CTA 07/24/2023 showed moderate stenosis in the distal segment of pr oximal LAD extending into mid LAD, Ostial 1st diagonal with probably less than 70% stenosis, Mild disease in the circumflex and right coronary artery. He then underwent an exercise stress test on 09/21/2023, he was able to exercise for 10.1 METS on Kong protocol and reached 91% of maximum predicted heart rate, No chest pain, Hypertensive blood pressure response, Some downsloping STs with normal m yocardial perfusion imaging. Today he reports feeling well with no anginal symptoms. He is good activity tolerance. Will have him continue on aspirin indefinitely. Continue atorvastatin with ideal LDL goal less than 70. Continue metoprolol, amlodipine. Signs and symptoms of angina reviewed with him in detail. Reviewed the diagnosis of coronary artery disease and how it is managed. Emergency care if needed for symptoms. Cardiology office visit in 6 months, sooner if needed.. (2) HTN (hypertension): Code(s): I10 - Essential (primary) hypertension Category: Medical Qualifiers: Hypertension type: primary hypertension Qualified Code(s): I10 - Essential (primary) hypertension Plan: Initial blood pressure 138/82, recheck done by me 136/78. He states he did take his medications this morning. At this time will have him continue amlodipine 10, hydrochlorothiazide 25 mg daily, metoprolol tartrate 100 mg b.i.d. and valsartan 320 mg daily. Benefits of weight loss, increasing physical activity, low-salt diet all reviewed with him. (3) Pure hypercholesterolemia: Code(s): E78.00 - Pure hypercholesterolemia, unspecified Category: Medical Plan: [place] LDL goal less than 70. Labs done on 10/15/2023 showed LDL 42. Continue atorvastatin 10 mg daily Plan Time spent on chart review, documentation, interview and assessment Coding Level of Care Code Est Pt Level 4 (09382) Diagnoses Atherosclerotic cardiovascular disease I25.10 Primary hypertension I10 Hypertension type: primary hypertension Pure hypercholesterolemia E78.00 Time Spent (min) 30
[2024-01-11 08:40] VITALS: BP 138/82; PULSE 68; BMI 35.6
== END 2024-01-11 09:14 | disposition home or self-care (01) ==
PROVIDERS: PCP Internal Medicine; Visit Provider Nurse Practitioner Family
DX: I25.10 Atherosclerotic heart disease of native coronary artery without angina pectoris (principal); I10 Essential (primary) hypertension; E78.00 Pure hypercholesterolemia, unspecified
CPT/HCPCS: 99214

== ENCOUNTER → 2024-01-11 08:37 | Outpatient (BNVA) | payer OTHER, SELFPAY | PROVIDERS: PCP Internal Medicine; Visit Provider Nurse Practitioner Family | DX: I25.10 Atherosclerotic heart disease of native coronary artery without angina pectoris (principal); I10 Essential (primary) hypertension; E78.00 Pure hypercholesterolemia, unspecified | CPT/HCPCS: 99212 ==

== ENCOUNTER 2024-03-02 06:01 | Outpatient (REF) | payer OTHER, SELFPAY ==
[2024-03-02 10:17] LABS: Appearance Urine Clear; Color Urine Yellow; Glucose Urine UA Negative (Negative); Leukocyte Esterase Urine Negative (Negative); Nitrite Urine Negative (Negative); UMIC TRIGGER UACC YES; Urine Blood Small (1+) (Negative); Urine Ketones Negative (Negative); Urine Protein Negative (Neg-Trace)
[2024-03-02 10:21] LABS: Bacteria Urine None Seen (None Seen); Hyaline Casts Urine 0-2 /LPF (0-2); Squamous Epithelial Cell Urine 0-2 /HPF (0-2); WBC Urine 0-5 /HPF (0-5)
[2024-03-02 10:26] LABS: MANUAL DIFF FLAG NO
[2024-03-02 10:38] LABS: Basophils Absolute Auto 0.1 X10*3/uL (0.0-0.2); Basophils Percent Auto 0.8 % (0-2); Eosinophils Absolute Auto 0.2 X10*3/uL (0.0-0.4); Eosinophils Percent Auto 3.8 % (0-4); Hematocrit 41.1 % (42.0-52.0); Hemoglobin 13.6 g/dl (14.0-18.0); Imm Gran Abs Auto 0.02 X10*3/uL (0.00-0.03); Imm Gran Pct Auto 0.3 % (0.0-0.4); Lymphocytes Absolute Auto 1.3 X10*3/uL (1.2-4.9); Lymphocytes Percent Auto 20.3 % (20-40); Mean Corpuscular HGB Conc 33.1 g/dl (31.0-36.0); Mean Corpuscular Hemoglobin 31.3 pg (27.0-33.0); Mean Corpuscular Volume 94.5 fL (80.0-98.0); Mean Platelet Volume 10.3 fL (9.4-12.4); Monocytes Absolute Auto 0.8 X10*3/uL (0.1-1.2); Monocytes Percent Auto 12.6 % (2-11); Neutrophils Percent Auto 62.2 % (45-73); Platelet Count 225 X10*3/uL (160-400); Red Blood Count 4.35 X10*6/uL (4.60-5.80); Red Cell Distribution Width 14.2 % (11.0-16.0); White Blood Count 6.4 X10*3/uL (4.8-10.8)
[2024-03-02 10:46] LABS: Estimated Average Glucose 117 mg/dL; Hemoglobin A1c % 5.7 % (<6.0)
[2024-03-02 11:19] LABS: Alanine Aminotransferase 28 U/L (0-40); Albumin Level 3.8 g/dL (3.5-5.0); Alkaline Phosphatase 55 U/L (39-117); Anion Gap 11 (12-20); Aspartate Amino Transferase 34 U/L (5-37); Bilirubin Total 0.6 mg/dL (0.0-1.0); Blood Urea Nitrogen 11 mg/dL (9-16); Carbon Dioxide 29 mmol/L (22-29); Chloride 102 mmol/L (96-108); Cholesterol 99 mg/dL (<200); Estimated Glomerular Filt Rate > 60; Glucose Fasting 116 mg/dL (60-99); HDL Cholesterol 44 mg/dL (>40); LDL Cholesterol Calculated 34 mg/dL (<100); Potassium 4.1 mmol/L (3.3-5.1); Sodium 138 mmol/L (135-145); Total Protein 6.5 g/dL (6.5-8.0); Triglycerides 109 mg/dL (<150); Uric Acid 7.2 mg/dL (3.4-7.0); Vitamin D 25-OH Total 20.3 ng/mL (>30)
== END 2024-03-02 06:02 | disposition home or self-care (01) ==
LOC: HO.HMGCLDS 06:01
PROVIDERS: PCP Internal Medicine; Visit Provider Internal Medicine
DX: R73.01 Impaired fasting glucose (principal); D64.9 Anemia, unspecified; E78.00 Pure hypercholesterolemia, unspecified; M10.9 Gout, unspecified; E55.9 Vitamin D deficiency, unspecified
CPT/HCPCS: 36415; 80053; 80061; 81001; 82306; 83036; 84443; 84550; 85025

== ENCOUNTER 2024-03-07 12:45 | Outpatient (AMB) | payer OTHER, SELFPAY ==
--- NOTE | 2024-03-07 12:57 | MHC.PC.OV ---
Vital Signs 03/07/24 12:58 Height 6 ft 4 in Weight 294 lb 6 oz BMI 35.8 BP 134/72 Blood Pressure Location Lt brachial Position Sitting Pulse 70 Pulse Source Pulse Oximeter Pulse Oximetry (%) 98 Oxygen Delivery Method Room Air Intake Visit Reasons: 4mof\u Intake Note: Patient is here to follow up on HTN, IFT, MORIS. Final Assembly And Packing Supervisor Required: No Commercial Tire Service Technician: Not Required per policy Accompanied by: Self / Same As Patient Allergies indomethacin Allergy (Unknown, Verified 03/07/24 13:45) tingling mouth Medication List - Last Reconciled 03/07/24 by Eber Claire MD amlodipine 10 mg PO DAILY aspirin (Adult Aspirin Regimen) 81 mg PO DAILY atorvastatin 10 mg PO DAILY 90 days blood pressure monitor As directed - with MEDIUM BP cuff blood pressure test kit-medium As directed cholecalciferol (vitamin D3) 50 mcg PO DAILY 90 days clonazepam 0.5 mg PO BEDTIME PRN 30 days fluticasone propionate 50 mcg/actuation 2 sprays intranasal BID hydrochlorothiazide 25 mg PO DAILY loratadine 10 mg PO DAILY metoprolol tartrate 100 mg PO BID pantoprazole 40 mg PO DAILY 90 days valsartan 320 mg PO DAILY 30 days Tobacco use date assessed: 03/07/24 Dental Screening Dental Screen Date: 10/16/23 HPI 4mof\u HPI Details Patient comes in today for his follow up visit States that he feels okay He denies any headaches or dizziness Denies any chest pains, no SOB No nausea/vomiting, no abdominal pain No change in bowel habits noted He had his follow up labs done a few days ago - to discuss his results [facility] Medical History Bianchi esophagus Hx of hiatal hernia CAD (coronary artery disease) Pure hypercholesterolemia Vitamin D deficiency Elevated LFTs Impaired fasting glucose Gout Bilateral hip pain Lumbar degenerative disc disease Cervical disc disease Obesity (BMI 30-39.9) Anxiety Allergic rhinitis Benign essential hypertension Normal colonoscopy (~03/17/14) Obstructive sleep apnea GERD (gastroesophageal reflux disease) Deviated septum Surgical History History of nasal surgery H/O colonoscopy History of esophagogastroduodenoscopy (EGD) History of hernia repair Hx of appendectomy Family History Father S/P CABG (coronary artery bypass graft) Social History Housing: House Alcohol intake: current Alcohol intake frequency: 0-2 drinks per day Alcohol type: beer and hard liquor Patient Tobacco Use Status: Former Tobacco user Tobacco use type: Cigarette e-Cigarette/Vaping Use: Never Used Second Hand Smoke Exposure: No service: No Current occupational status: retired Cognitive needs: No Hearing needs: No Vision needs: No Questionnaire Thrive Questionnaire Date Thrive assessed: 10/16/23 VIC-7 AMB Questionnaire VIC-7 Date VIC - 7 assessed: 10/16/23 Source: Developed by Drs. Reynaldo Garcia, Sherri Suarez, Arthur Lebron and colleagues, with an educational toshia from [email or web address]. Review of Systems Const Denies chills, Denies fatigue, Denies fever(s) and Denies headache(s) ENT Denies dysphagia, Denies dizziness, Denies otalgia, Denies headache(s), Reports neck pain (mild), Denies odynophagia and Denies sore throat Card Denies chest pain, Denies palpitations and Denies dyspnea Resp Denies cough and Denies dyspnea GI Denies abdominal pain, Denies constipation, Denies dysphagia, Denies heartburn, Denies diarrhea, Denies nausea, Denies odynophagia and Denies vomiting Denies dysuria, Denies nocturia and Denies urinary frequency Musc Reports back pain (over the lower back - mild) and Reports neck pain (mild) Skin/Breast Denies rash Neuro Denies dizziness and Denies headache(s) Endo Denies fatigue and Denies palpitations Physical exam (Primary Care) Vital Signs: Last Vital Signs Pulse 70 03/07/24 12:58 BP 134/72 03/07/24 12:58 Pulse Ox 98 03/07/24 12:58 Oxygen Delivery Method Room Air 03/07/24 12:58 BMI result Body Mass Index 35.8 Tobacco/Smoking Status: Tobacco use Status Tobacco use date assessed 03/07/24 03/07/24 13:03 Patient Tobacco Use Status Former Tobacco user 03/07/24 13:03 Tobacco use type Cigarette 03/07/24 13:03 e-Cigarette/Vaping Use Never Used 03/07/24 13:03 Thrive Assessment: Date of Thrive Assessment Date Thrive assessed 10/16/23 03/07/24 13:03 Const General: no acute distress and alert HENMT Ears: TM's normal bilaterally and EAC's normal Throat: Yes posterior oropharynx normal and Yes tonsils normal (no TP congestion noted) Neck Neck: Yes no lymphadenopathy and Yes supple Thyroid: Thyroid normal Resp Auscultation: clear to auscultation bilaterally, no rales and no wheezes Cardio Rate: regular rate Rhythm: regular rhythm Heart sounds: no murmurs GI Palpation (GI): Soft to palpation and nontender Auscultation: normal bowel sounds General: Yes no CVA tenderness Back/Spine/Pelvis Back: no CVA tenderness Cervical Spine: Cervical spine tenderness Thoracic/Lumbar Spine: lumbar spinal tenderness Skin Rashes: no rashes Extrem General: Yes no clubbing, cyanosis or edema Results Reviewed Results Reviewed: Laboratory Tests 03/02/24 03/02/24 06:11 06:41 WBC 6.4 Hgb 13.6 L Hct 41.1 L Plt Count 225 Sodium 138 Potassium 4.1 Creatinine 0.80 Estimated GFR > 60 Fasting Glucose 116 H Hemoglobin A1c % 5.7 Uric Acid 7.2 H Calcium 9.0 AST 34 ALT 28 Triglycerides 109 Cholesterol 99 LDL Cholesterol, Calc 34 HDL Cholesterol 44 25-OH Vitamin D Total 20.3 L TSH 1.90 Ur Specific [place] 1.010 Urine Protein Negative Urine Glucose (UA) Negative Urine Blood Small (1+) H Urine Nitrite Negative Ur Leukocyte Esterase Negative Assessment and Plan Assessment & Plan (1) Benign essential hypertension: Code(s): I10 - Essential (primary) hypertension Plan: Reinforced low sodium diet - goal is systolic BP of at least 120 to 130 mm Continue Metoprolol 100 mg BID, Valsartan 320 mg QD, HCTZ 25 mg QD and Amlodipine 10 mg QD Patient is reminded to continue monitoring his blood pressure closely (2) Atherosclerotic cardiovascular disease: Code(s): I25.10 - Atherosclerotic heart disease of [place] coronary artery without angina pectoris Plan: Coronary CTA done on 07/24/2023 showed (+) moderate stenosis in the distal segment of proximal LAD extending into mid LAD, ostial 1st diagonal with probably less than 70% stenosis, mild disease in the circumflex and right coronary artery He then underwent an exercise stress test on 09/21/2023 - he was able to exercise for 10.1 METS on Kong protocol and reached 91% of maximum predicted heart rate, no chest pain, hypertensive blood pressure response, some downsloping STs with normal myocardial perfusion imaging Continue Aspirin 81 mg QD Continue risk factor modification, including controlling his BP, cholesterol and blood sugar Follow up with cardiology as scheduled - unless he has acute cardiac / coronary symptoms, will likey have repeat stress testing in 1 year for follow up (3) Pure hypercholesterolemia: Code(s): E78.00 - Pure hypercholesterolemia, unspecified Plan: Results of his labs done a few days ago reviewed and discussed with patient Reinforced low cholesterol diet Continue Atorvastatin 10 mg QD - he was started on this by cardiology when his CT angiogram done in July 2023 came back showing decreased FFR in the mid LAD and proximal D1 Will recheck his labs and fasting lipids in 4 months for follow up (4) Impaired fasting glucose: Code(s): R73.01 - Impaired fasting glucose Plan: FBS is again elevated on his recent labs at 116 mg/dl but his HgbA1c remained normal at 5.7% Reinforced low calorie/low carb diet; exercise as tolerated (5) Obstructive sleep apnea: Comment: uses CPAP. Code(s): G47.33 - Obstructive sleep apnea (adult) (pediatric) Plan: Continue using his BiPAP daily when sleeping at night - was diagnosed with MORIS many years ago and continues to benefit from the use of his BiPAP device (6) GERD (gastroesophageal reflux disease): Comment: EGD done 03/17/2014 Code(s): K21.9 - Gastro-esophageal reflux disease without esophagitis Qualifiers: Esophagitis presence: without esophagitis Qualified Code(s): K21.9 - Gastro-esophageal reflux disease without esophagitis Plan: Dietary restrictions reinforced Continue Pantoprazole 40 mg QD (7) Allergic rhinitis: Code(s): J30.9 - Allergic rhinitis, unspecified Qualifiers: Allergic rhinitis trigger: unspecified Allergic rhinitis seasonality: unspecified Qualified Code(s): J30.9 - Allergic rhinitis, unspecified Plan: Continue Fluticasone 50 mcg nasal spray QD PRN and Loratadine 10 mg QD PRN He was seen by milling/polishing operator a couple of years ago but did not have the time to start getting the recommended allergy injections; patient states that he is now retired and can start injections if they are still recommended He was referred back to his milling/polishing operator previously but allergy testing could not be done until patient is able to stay off his Metoprolol for a week (8) Cervical disc disease: Code(s): M50.90 - Cervical disc disorder, unspecified, unspecified cervical region Plan: X-rays of the cervical spine done in the past (2012) showed (+) multilevel cervical spondylosis with high-grade neural foraminal narrowing on the right side at C3-C4 and C4-C5 and on the left at C3-C4 Repeat cervical spine x-rays done in January 2021 revealed (+) mild degenerative disc changes at C2-C3 with mild straightening of cervical lordosis suggestive of spasms Patient states that his neck pain/symptoms have been mostly manageable lately and he currently has no acute issues that needs to be addressed here (9) Lumbar degenerative disc disease: Code(s): M51.36 - Other intervertebral disc degeneration, lumbar region Plan: MRI of the lumbar spine done back in 2018 showed (+) lower lumbar spine spondylotic changes with far lateral left-sided disc protrusion at L3-L4 abutting the exiting left L3 nerve root and multilevel facet arthropathy but no central stenosis Repeat x-rays of the lumbar spine done back in January 2021 revealed (+) degenerative disc changes with ventral spondylosis over the upper and lower dorsal spine States that his low back pains have also been mostly manageable lately Reinforced activity and weight-lifting restrictions (10) Gout: Code(s): M10.9 - Gout, unspecified Qualifiers: Gout site: unspecified site Gout etiology: unspecified cause Chronicity: unspecified Qualified Code(s): M10.9 - Gout, unspecified Plan: His serum uric acid level has improved significantly to 7.2 on his recent labs - patient has not had any acute gout flare ups lately Reinforced low purine diet Will recheck/monitor serum uric acid level and labs in a few months for follow up (11) Elevated LFTs: Code(s): R79.89 - Other specified abnormal findings of blood chemistry Plan: Resolved on his previous labs; his LFTs have remained normal on his recent labs - was most likely related to his weight (hepatosteatosis) Reinforced weight loss and exercise as tolerated; patient also advised to avoid alcohol and any Tylenol-containing medications Will recheck his LFTs in 4 months for follow up (12) Vitamin D deficiency: Code(s): E55.9 - Vitamin D deficiency, unspecified Plan: Continue Vitamin D3 2000 units QD (13) Anxiety: Code(s): F41.9 - Anxiety disorder, unspecified Plan: Continue Clonazepam 0.5 mg QD PRN (14) Obesity (BMI 30-39.9): Code(s): E66.9 - Obesity, unspecified Plan: Reinforced diet/exercise as tolerated/lose weight Plan Follow up in 4 months Orders: Orders Comprehensive [place]. Panel Fast 4 Months E78.00 - Pure hypercholesterolemia, unspecified Complete Blood Count Auto Diff 4 Months D64.9 - Anemia, unspecified Lipid Panel 4 Months E78.00 - Pure hypercholesterolemia, unspecified Hemoglobin A1c 4 Months R73.01 - Impaired fasting glucose TSH reflex Free T4 4 Months E78.00 - Pure hypercholesterolemia, unspecified UA CC w/rflx Micro + Cult 4 Months R30.0 - Dysuria Vitamin D 25-OH Total 4 Months E55.9 - Vitamin D deficiency, unspecified Coding Level of Care Code Est Pt Level 4 (32403) Diagnoses Benign essential hypertension I10 Atherosclerotic cardiovascular disease I25.10 Pure hypercholesterolemia E78.00 Impaired fasting glucose R73.01 Obstructive sleep apnea G47.33 Gastroesophageal reflux disease without esophagitis K21.9 Esophagitis presence: without esophagitis Allergic rhinitis, unspecified seasonality, unspecified trigger J30.9 Allergic rhinitis trigger: unspecified Allergic rhinitis seasonality: unspecified Cervical disc disease M50.90 Lumbar degenerative disc disease M51.36 Gout, unspecified cause, unspecified chronicity, unspecified site M10.9 Gout site: unspecified site Gout etiology: unspecified cause Chronicity: unspecified Elevated LFTs R79.89 Vitamin D deficiency E55.9 Anxiety F41.9 Obesity (BMI 30-39.9) E66.9
[2024-03-07 12:58] VITALS: BP 134/72; PULSE 70; O2SAT 98; BMI 35.8
== END 2024-03-07 13:52 | disposition home or self-care (01) ==
PROVIDERS: PCP Internal Medicine; Visit Provider Internal Medicine
DX: I10 Essential (primary) hypertension (principal); I25.10 Atherosclerotic heart disease of native coronary artery without angina pectoris; E78.00 Pure hypercholesterolemia, unspecified; R73.01 Impaired fasting glucose; G47.33 Obstructive sleep apnea (adult) (pediatric); K21.9 Gastro-esophageal reflux disease without esophagitis; J30.9 Allergic rhinitis, unspecified; M50.90 Cervical disc disorder, unspecified, unspecified cervical region; M51.36 Other intervertebral disc degeneration, lumbar region; M10.9 Gout, unspecified; R79.89 Other specified abnormal findings of blood chemistry; E55.9 Vitamin D deficiency, unspecified; F41.9 Anxiety disorder, unspecified; E66.9 Obesity, unspecified
CPT/HCPCS: 99214

== ENCOUNTER 2024-07-09 07:02 | Outpatient (REF) | payer OTHER, SELFPAY ==
[2024-07-09 07:25] LABS: MANUAL DIFF FLAG NO
[2024-07-09 08:04] LABS: Basophils Absolute Auto 0.1 X10*3/uL (0.0-0.2); Basophils Percent Auto 0.8 % (0-2); Eosinophils Absolute Auto 0.4 X10*3/uL (0.0-0.4); Eosinophils Percent Auto 4.9 % (0-4); Hematocrit 42.9 % (42.0-52.0); Hemoglobin 14.2 g/dl (14.0-18.0); Imm Gran Abs Auto 0.04 X10*3/uL (0.00-0.03); Imm Gran Pct Auto 0.6 % (0.0-0.4); Lymphocytes Absolute Auto 1.3 X10*3/uL (1.2-4.9); Lymphocytes Percent Auto 17.8 % (20-40); Mean Corpuscular HGB Conc 33.1 g/dl (31.0-36.0); Mean Corpuscular Hemoglobin 30.1 pg (27.0-33.0); Mean Corpuscular Volume 91.1 fL (80.0-98.0); Mean Platelet Volume 9.6 fL (9.4-12.4); Monocytes Absolute Auto 0.6 X10*3/uL (0.1-1.2); Monocytes Percent Auto 8.1 % (2-11); Neutrophils Absolute Auto 4.8 x10*3/uL (2.0-8.3); Neutrophils Percent Auto 67.8 % (45-73); Platelet Count 241 X10*3/uL (160-400); Red Blood Count 4.71 X10*6/uL (4.60-5.80); Red Cell Distribution Width 13.8 % (11.0-16.0); White Blood Count 7.1 X10*3/uL (4.8-10.8)
[2024-07-09 08:11] LABS: Estimated Average Glucose 123 mg/dL; Hemoglobin A1C 160.5827 umol/L; Hemoglobin A1c % 5.9 % (<6.0); Total Hemoglobin (HGBA1C) 3891.8371 umol/L
[2024-07-09 08:46] LABS: Alanine Aminotransferase 38 U/L (0-40); Albumin Level 3.9 g/dL (3.5-5.0); Alkaline Phosphatase 56 U/L (39-117); Anion Gap 14 (12-20); Aspartate Amino Transferase 39 U/L (5-37); Bilirubin Total 0.6 mg/dL (0.0-1.0); Blood Urea Nitrogen 12 mg/dL (9-16); Calcium 9.4 mg/dL (8.4-10.2); Carbon Dioxide 27 mmol/L (22-29); Chloride 103 mmol/L (96-108); Cholesterol 106 mg/dL (<200); Estimated Glomerular Filt Rate > 60; Glucose Fasting 131 mg/dL (60-99); HDL Cholesterol 46 mg/dL (>40); LDL Cholesterol Calculated 39 mg/dL (<100); Potassium 4.2 mmol/L (3.3-5.1); Sodium 140 mmol/L (135-145); Total Protein 6.9 g/dL (6.5-8.0); Triglycerides 106 mg/dL (<150)
[2024-07-09 09:04] LABS: TSH reflex Free T4 1.62 uIU/mL (0.32-4.0); Vitamin D 25-OH Total 27.5 ng/mL (>30)
[2024-07-09 10:09] LABS: Appearance Urine Clear; Color Urine Yellow; Glucose Urine UA Negative (Negative); Leukocyte Esterase Urine Negative (Negative); Nitrite Urine Negative (Negative); PH 6.5 (5.0-9.0); Specific Gravity - Urine 1.015 (1.005-1.025); Urine Blood Negative (Negative); Urine Ketones Negative (Negative); Urine Protein Negative (Neg-Trace)
== END 2024-07-09 07:03 | disposition home or self-care (01) ==
LOC: HO.LAB 07:02
PROVIDERS: PCP Internal Medicine; Visit Provider Internal Medicine
DX: E78.00 Pure hypercholesterolemia, unspecified (principal); R73.01 Impaired fasting glucose; R30.0 Dysuria; E55.9 Vitamin D deficiency, unspecified; D64.9 Anemia, unspecified
CPT/HCPCS: 36415; 80053; 80061; 81003; 82306; 83036; 84443; 85025

== ENCOUNTER 2024-07-21 08:44 | Outpatient (AMB) | payer OTHER, SELFPAY ==
[2024-07-21 09:02] VITALS: BP 160/90; PULSE 77; BMI 37.0
--- NOTE | 2024-07-21 09:02 | MHC.OFFVIS ---
Vital Signs 07/21/24 09:02 Height 6 ft 4 in Weight 303 lb 12.752 oz BMI 37.0 BP 160/90 H Blood Pressure Location Lt brachial Position Sitting Pulse 77 Pulse Source Monitor Intake Visit Reasons: 6m follow up Psychometric Examiner Required: No Accompanied by: Self / Same As Patient Allergies indomethacin Allergy (Unknown, Verified 03/07/24 13:45) tingling mouth Medication List - Last Reconciled 07/21/24 by Francisco Javier Jeter MD amlodipine 10 mg PO DAILY aspirin (Adult Aspirin Regimen) 81 mg PO DAILY atorvastatin 10 mg PO DAILY 90 days blood pressure monitor As directed - with MEDIUM BP cuff blood pressure test kit-medium As directed cholecalciferol (vitamin D3) 50 mcg PO DAILY 90 days clonazepam 0.5 mg PO BEDTIME PRN 30 days fluticasone propionate 50 mcg/actuation 2 sprays intranasal BID 90 days hydrochlorothiazide 25 mg PO DAILY loratadine 10 mg PO DAILY metoprolol tartrate 100 mg PO BID pantoprazole 40 mg PO DAILY 90 days triamcinolone acetonide (Nasacort) 2 sprays intranasal DAILY PRN valsartan 320 mg PO DAILY 30 days HPI Comments Details: Abel returns for follow-up. He has many comorbidities including morbid obesity, hypertension as well as positive family history of coronary disease in father. He underwent cardiac evaluation including echocardiogram, stress test and coronary CTA and is being treated for stable coronary disease. He states he feels fine. No cardiac symptoms. Blood pressure still on the higher side but he states he gets anxiety coming here. Home blood pressures are somewhere in the upper 130s and up to 140 mm systolic, still not ideal. [facility]LY [facility], [facility] Medical History Bianchi esophagus Hx of hiatal hernia CAD (coronary artery disease) Pure hypercholesterolemia Vitamin D deficiency Elevated LFTs Impaired fasting glucose Gout Bilateral hip pain Lumbar degenerative disc disease Cervical disc disease Obesity (BMI 30-39.9) Anxiety Allergic rhinitis Benign essential hypertension Normal colonoscopy (~03/17/14) Obstructive sleep apnea GERD (gastroesophageal reflux disease) Deviated septum Surgical History History of nasal surgery H/O colonoscopy History of esophagogastroduodenoscopy (EGD) History of hernia repair Hx of appendectomy Family History Father S/P CABG (coronary artery bypass graft) Social History Housing: House Alcohol intake: current Alcohol intake frequency: 0-2 drinks per day Alcohol type: beer and hard liquor Patient Tobacco Use Status: Former Tobacco user Tobacco use type: Cigarette e-Cigarette/Vaping Use: Never Used Second Hand Smoke Exposure: No service: No Current occupational status: retired Cognitive needs: No Hearing needs: No Vision needs: No Review of Systems Const Denies chills, Denies fatigue, Denies fever(s), Denies frequent falls, Denies weakness, Denies weight gain and Denies weight loss ENT Denies dizziness Card Denies chest pain, Denies leg edema, Denies lightheadedness, Denies palpitations, Denies dyspnea and Denies dyspnea on exertion Resp Denies cough, Denies dyspnea and Denies dyspnea on exertion GI Denies hematochezia Musc Denies abnormal gait, Denies muscle weakness, Denies numbness, Denies radiating pain into limb and Denies tingling Neuro Denies abnormal gait, Denies dizziness, Denies frequent falls, Denies numbness, Denies tingling and Denies weakness Endo Denies fatigue and Denies palpitations Physical Exam Vital Signs: Last Vital Signs Pulse 77 07/21/24 09:02 BP 160/90 H 07/21/24 09:02 BMI result Body Mass Index 37.0 Const General: comfortable and no acute distress Orientation/consciousness: patient oriented x3 HEENT Other: Unremarkable Head: Yes normal to inspection Neck Neck: Yes normal visual inspection Chest Chest palpation & inspection: normal inspection of the chest Resp Auscultation: clear to auscultation bilaterally Cardio Palpation: normal PMI Heart sounds: S1 normal heart sound present, S2 normal heart sound present, no gallops, no murmurs and no rubs GI Palpation (GI): Soft to palpation Back/Spine/Pelvis Other: unremarkable Skin General skin exam: no rashes or lesions noted Neuro General: patient oriented x3 Extrem General: Yes normal to inspection Psych Mental Status: mental status grossly normal Office Procedures EKG Details: EKG with underlying sinus rhythm at 77/Min; no significant ST-T changes and otherwise unremarkable[place] [address]-[id number], Complete Assessment & Plan Assessment & Plan (1) Atherosclerotic cardiovascular disease: Code(s): I25.10 - Atherosclerotic heart disease of [place] coronary artery without angina pectoris Category: Medical (2) HTN (hypertension): Code(s): I10 - Essential (primary) hypertension Category: Medical Qualifiers: Hypertension type: primary hypertension Qualified Code(s): I10 - Essential (primary) hypertension (3) Ascending aorta dilatation: Code(s): I77.810 - Thoracic aortic ectasia Category: Medical (4) Obesity (BMI 30-39.9): Code(s): E66.9 - Obesity, unspecified Category: Medical Plan Cardiac studies reviewed. Echocardiogram with LVEF of 55-60%. Wall motion abnormalities could not be seen due to suboptimal endocardial definition. No significant valvular issues. Ascending aortic size 4 cm. In the Holter, underlying rhythm is sinus with some sinus bradycardia but otherwise unremarkable. In the coronary CTA, moderate stenosis in the distal segment of proximal LAD extending into mid LAD. Ostial 1st diagonal with probably less than 70% stenosis. Mild disease in the circumflex and right coronary artery. With regard to FFR, diminished in the mid LAD and proximal D1. In the exercise stress test, he was able to exercise for 10.1 METS on Kong protocol and reached 91% of maximum predicted heart rate. No chest pain. Hypertensive blood pressure response. Some downsloping STs. However, perfusion imaging was unremarkable. Overall, he can be treated for stable coronary artery disease. He does not have any angina whatsoever. Medications, long-term aspirin. For statins, tried rosuvastatin and had side effects and hence only on a small dose of atorvastatin. Lipids are still well controlled. With regard to obesity, needs to lose some weight. With regard to hypertension, still not well controlled. He blames it on white coat hypertension but suspect it is still on the higher side. Currently, on beta-blockers, amlodipine, hydrochlorothiazide, valsartan. Add spironolactone and check labs in a couple of weeks after that for potassium levels. Advised him to update us on home blood pressures. May need further changes. Follow-up in 6 months. Follow-up in 6 months. Orders: Orders Basic Metabolic Panel 2 Weeks I10 - Essential (primary) hypertension Medications: New spironolactone 25 mg PO DAILY 90 tabs 1RF Coding Level of Care Code Est Pt Level 4 (40046) Diagnoses Atherosclerotic cardiovascular disease I25.10 Primary hypertension I10 Hypertension type: primary hypertension Ascending aorta dilatation I77.810 Obesity (BMI 30-39.9) E66.9 CPT Codes EKG - CPT: 19453-Noxhnsqygyenuscvd, Complete ([id number])
== END 2024-07-21 09:25 | disposition home or self-care (01) ==
PROVIDERS: PCP Internal Medicine; Visit Provider Internal Medicine
DX: I25.10 Atherosclerotic heart disease of native coronary artery without angina pectoris (principal); I10 Essential (primary) hypertension; I77.810 Thoracic aortic ectasia; E66.9 Obesity, unspecified
CPT/HCPCS: 93010; 99214

== ENCOUNTER → 2024-07-21 08:44 | Outpatient (BNVA) | payer OTHER, SELFPAY | PROVIDERS: PCP Internal Medicine; Visit Provider Internal Medicine | DX: I25.10 Atherosclerotic heart disease of native coronary artery without angina pectoris (principal); I10 Essential (primary) hypertension; I77.810 Thoracic aortic ectasia; E66.9 Obesity, unspecified; Z68.37 Body mass index [BMI] 37.0-37.9, adult | CPT/HCPCS: 93005; 99212 ==

== ENCOUNTER 2024-08-04 06:41 | Outpatient (REF) | payer OTHER, SELFPAY ==
[2024-08-04 07:41] LABS: Anion Gap 14 (12-20); Blood Urea Nitrogen 10 mg/dL (9-16); Calcium 9.3 mg/dL (8.4-10.2); Carbon Dioxide 26 mmol/L (22-29); Chloride 104 mmol/L (96-108); Estimated Glomerular Filt Rate > 60; Glucose Random 133 mg/dL (60-115); Potassium 4.1 mmol/L (3.3-5.1); Sodium 140 mmol/L (135-145)
--- OUTSIDE RECORDS SUMMARY | 2024-08-09 22:53 | XMS_ITS ---
Author Organization [facility] Address [address] [place] [address] Care Team Providers Care Pipe Testing Technician Name Role Phone Dakotah CANAS, [place] Primary Care Provider Hollie Khan Jr, August Ernst REASON FOR VISIT old recall date . Encounters Encounter Location Date Provider Diagnosis [facility] [address] [place] [address] 01/22/2024 August Khan Jr PLAN OF TREATMENT Next Appt Details Provider Name:August sequeira Jr, 11/07/2024 09:20:00 AM, [address], [address], [place], [address],
--- OUTSIDE RECORDS SUMMARY | 2024-08-09 22:54 | XMS_ITS ---
Author Organization [facility] Address [address] [place] [address] Care Team Providers Care Wrapper Counter Name Role Phone Dakotah CANAS, [place] Primary Care Provider Hollie Khan Jr, August Ernst REASON FOR VISIT pathology Encounters Encounter Location Date Provider Diagnosis [facility] [address] [place] [address] 11/09/2023 August Khan Jr PLAN OF TREATMENT Next Appt Details Provider Name:August sequeira Jr, 11/07/2024 09:20:00 AM, [address], [address], [place], [address],
--- OUTSIDE RECORDS SUMMARY | 2024-08-09 22:54 | XMS_ITS ---
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 (670639946) Encounters Encounter Location Date Provider Diagnosis [facility] [address] [place] [phone] 11/04/2023 August Khan Jr Encounter for screening colonoscopy Z12.11 ; Colon polyps K63.5 and Howard esophagus K22.70 ASSESSMENTS Encounter Date Diagnosis Assessment Notes Treatment Notes Treatment Clinical Notes 11/04/2023 Encounter for screening colonoscopy (ICD-10 - Z12.11) 11/04/2023 Colon polyps (ICD-10 - K63.5) 11/04/2023 Howard esophagus (ICD-10 - K22.70) PLAN OF TREATMENT Next Appt Details Provider Name:August sequeira Jr, 11/07/2024 09:20:00 AM, [address], [address], [place], [address],
--- OUTSIDE RECORDS SUMMARY | 2024-08-09 22:54 | XMS_ITS | Patient Health Record ---
Author Organization [facility] Address [address] [place] [address] Care Team Providers Care Jalousies Installer Name Role Phone Dakotah CANAS, Eber Primary Care Provider August Lucas Jr ALLERGIES No Known Allergies RESULTS Component Value Reference Range Notes Pathology Reviewed date:11/09/2023 08:56:51 AM Interpretation: Performing Lab:[facility], [address] [place] [id number] Notes/Report: REASON FOR REFERRAL No Information MEDICATIONS Medication SIG (Take, Route, Frequency, Duration) Notes Start Date End Date Status Aspirin 81 81 MG 1 tablet Orally Once a day for 30 day(s) Active Atorvastatin Calcium 10 MG 1 tablet Oral ly Once a day for 30 day(s) Active hydroCHLOROthiazide 25 MG 1 tablet in th e morning Orally Once a day for 30 day(s) Active Valsartan-hydroCHLOROthiazid e 320-12.5 MG 1 tablet Orally Once a day Active Fluticasone Propionate Active Metoprolol Succinate 100 MG one tablet O rally twice a day Active amLODIPine Besylate 10 MG 1 tablet Orall y Once a day Active Flaxseed Oil Active Loratadine 10mg Acti ve clonazePAM 0.5 MG 1 tablet Orally Once a day Active Vitamin D-3 125 MCG (5000 UT) 1 tablet O rally Once a day for 30 day(s) Active MiraLax (colon prep) 17 GM/SCOOP mixed with Gatorade or Crystal Light Orally begin at 5:00 p.m. 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 (931497090) VITAL SIGNS Temperature 97.9 degrees Fahrenheit 10/26/2023 Blood pressure diastolic 00 mm Hg 10/26/2023 Height 77.5 in 10/26/2023 Blood pressure systolic 000 mm Hg 10/26/2023 Weight 280 lbs 10/26/2023 BMI 32.77 kg/m2 10/26/2023 Encounters Encounter Location Date Provider Diagnosis [facility] [place] Out[place] [address] [place] [phone] 11/04/2023 August Khan Jr Encounter for screening colonoscopy Z12.11 ; Colon polyps K63.5 and Bianchi esophagus K22.70 [facility] [address] [place] [address] 10/26/2023 August Khan Jr Bianchi's esophagus without dysplasia K22.70 and Colon cancer screening Z12.11 [facility] [address] [place] [phone] 09/03/2023 August Khan Jr [facility] [address] [place] [phone] 11/09/2023 August Khan Jr [facility] [address] [place] [phone] 01/22/2024 August Khan Jr ASSESSMENTS Encounter Date Diagnosis Assessment Notes Treatment Notes Treatment Clinical Notes 11/04/2023 Encounter for screening colonoscopy (ICD-10 - Z12.11) 11/04/2023 Colon polyps (ICD-10 - K63.5) 10/26/2023 Colon cancer screening (ICD-10 - Z12.11) 10/26/2023 Bianchi's esophagus without dysplasia (ICD-10 - K22.70) Endoscopy material was printed 11/04/2023 Bianchi esophagus (ICD-10 - K22.70) PLAN OF TREATMENT Pending Test Test Name Order Date CELIAC DISEASE ANTIBODY PANEL 03/28/2014 Future Test Test Name Order Date UPPER GI ENDOSCOPY 10/12/2013 COLONOSCOPY 10/12/2013 UPPER GI ENDOSCOPY 06/09/2018 UPPER GI ENDOSCOPY 10/26/2023 COLONOSCOPY 10/26/2023 Next Appt Details Provider Name:August Enmanuel sequeira Jr, 11/07/2024 09:20:00 AM, [address], [address], [place], [address], Insurance Providers Payer Name Payer Address Payer Phone Subscriber Number Group Number Insured Name Patient Relationship to Insured Coverage Start Date Coverage End Date [facility] [address] [address] [place], [place] [id number] AILYN COFFEY Self - patient is the insured MEDICAL (GENERAL) HISTORY Medical History History ICD Code Hypertension Coronary disease, medical management Hiatal hernia Bianchi's esophagus, EGD/18, short segme nt no dysplasia, five-year followup MORIS/CPAP Colonoscopy 03/13, normal, ten-year follo wup Surgical History Surgery Date(Month/Year) hernia repair appendectomy deviated septum repair
== END 2024-08-04 06:42 | disposition home or self-care (01) ==
LOC: HO.LAB 06:41
PROVIDERS: PCP Internal Medicine; Visit Provider Internal Medicine
DX: I10 Essential (primary) hypertension (principal)
CPT/HCPCS: 36415; 80048

== ENCOUNTER 2024-10-26 10:03 | Outpatient (AMB) | payer OTHER, SELFPAY ==
[2024-10-26 10:05] VITALS: BP 144/86; PULSE 79; O2SAT 98; BMI 36.5
--- NOTE | 2024-10-26 10:05 | A.OFFPC_ITS ---
Vital Signs 10/26/24 10:05 Height 6 ft 4 in Weight 300 lb BMI 36.5 BP 144/86 H Blood Pressure Location Lt brachial Position Sitting Pulse 79 Pulse Source Pulse Oximeter Pulse Oximetry (%) 98 Oxygen Delivery Method Room Air Intake Visit Reasons: 4 mo f/u/med review Seed Sorter Required: No Accompanied by: Self / Same As Patient Allergies indomethacin Allergy (Unknown, Verified 10/26/24 10:37) tingling mouth rosuvastatin Adverse Reaction (Intermediate, Verified 10/26/24 10:58) Unknown Medication List - Last Reconciled 10/26/24 by Eber Claire MD amlodipine 10 mg PO DAILY aspirin (Adult Aspirin Regimen) 81 mg PO DAILY atorvastatin 10 mg PO DAILY 90 days blood pressure monitor As directed - with MEDIUM BP cuff blood pressure test kit-medium As directed cholecalciferol (vitamin D3) 50 mcg PO DAILY 90 days clonazepam 0.5 mg PO BEDTIME PRN 30 days fluticasone propionate 50 mcg/actuation 2 sprays intranasal BID 90 days hydrochlorothiazide 25 mg PO DAILY loratadine 10 mg PO DAILY metoprolol tartrate 100 mg PO BID pantoprazole 40 mg PO DAILY 90 days spironolactone 25 mg PO DAILY triamcinolone acetonide (Nasacort) 2 sprays intranasal DAILY PRN valsartan 320 mg PO DAILY 30 days Tobacco use date assessed: 10/26/24 Dental Screening Dental Screen Date: 10/26/24 Did you have a dental visit in the last 12 months?: Yes Did you have a dental problem in the last 6 months where you did not have access to dental care?: No Was dental information given to patient?: Patient has dentist HPI 4 mo f/u/med review HPI Details Patient comes in today for his follow up visit States that he feels okay He denies any headaches or dizziness Denies any chest pains, no SOB but states that his chest still feels slightly congested at times and he has had on and off non-productive cough ever since he came down with a cold about 2 to 3 weeks ago Recalls that he had a mild sore throat with his symptoms of cough and congestion back then but denies any fever Most of his symptoms have since cleared up except for his chest congestion and cough No nausea/vomiting, no abdominal pain No change in bowel habits noted He had his follow up labs last done back in July 2024 (his cancelled his previous appointment and was rescheduled to today) - to discuss his results States that he has not yet eaten anything this morning and can go and get labs done if needed [facility] Medical History (Updated 10/26/24 @ 11:18 by Eber Claire MD) Essential hypertension Bianchi esophagus Hx of hiatal hernia CAD (coronary artery disease) Pure hypercholesterolemia Vitamin D deficiency Elevated LFTs Impaired fasting glucose Gout Bilateral hip pain Lumbar degenerative disc disease Cervical disc disease Obesity (BMI 30-39.9) Anxiety Allergic rhinitis Benign essential hypertension Normal colonoscopy (~03/17/14) Obstructive sleep apnea GERD (gastroesophageal reflux disease) Deviated septum Surgical History History of nasal surgery H/O colonoscopy History of esophagogastroduodenoscopy (EGD) History of hernia repair Hx of appendectomy Family History Father S/P CABG (coronary artery bypass graft) Social History Housing: House Alcohol intake: current Alcohol intake frequency: 0-2 drinks per day Alcohol type: beer and hard liquor Patient Tobacco Use Status: Former Tobacco user Tobacco use type: Cigarette e-Cigarette/Vaping Use: Never Used Second Hand Smoke Exposure: No service: No Current occupational status: retired Cognitive needs: No Hearing needs: No Vision needs: No Questionnaire PHQ-9 Over the last 2 weeks, how often have you been bothered by any of the following problems? 1. Little interest or pleasure in doing things: not at all 2. Feeling down, depressed, or hopeless: not at all 3. Trouble falling or staying asleep, or sleeping too much: not at all 4. Feeling tired or having little energy: not at all 5. Poor appetite or overeating: not at all 6. Feeling bad about yourself - or that you are a failure or have let yourself or your family down: not at all 7. Trouble concentrating on things, such as reading the newspaper or watching television: not at all 8. Moving or speaking so slowly that other people could have noticed. Or the opposite - being so fidgety or restless that you have been moving around a lot more than usual: not at all 9. Thoughts that you would be better off or of hurting yourself in some way: not at all Total score: 0 Depression Screening Interpretation: Negative Depression Screening Done: Yes 72988 - PHQ-9 Billing: Yes Source: Developed by Drs. Reynaldo Garcia, Sherri Suarez, Arthur Lebron and colleagues, with an educational toshia from [employer]. Thrive Questionnaire Date Thrive assessed: 10/26/24 I am a: Patient What is your living situation today?: I have a steady place to live Within the past 12 months, did the food you bought not last and you didn't have the money to get more?: Never true Within the past 12 months, did you worry whether your food would run out before you got money to buy more?: Never true Do you have trouble paying for medicines?: No Do you have trouble getting transportation to medical appointments?: No Do you have trouble paying your heating and electricity bill?: No Do you have trouble taking care of your child, family member or friend?: No Do you have trouble with day-to-day activities such as bathing, preparing meals, shopping, managing finances, etc.?: No Are you currently unemployed and looking for a job?: No Are you interested in more education?: No Please select the resources that you would like help with: None Currently or been in a relationship where the following occur: No concerns reported THRIVE Score: 0 AUDIT C Alcohol Use Questionnaire (AUDIT-C) 1. How often do you have a drink containing alcohol?: 2-4 times a month 2. How many drinks containing alcohol do you have on a typical day when you are drinking?: 1 or 2 3. How often do you have six or more drinks on one occasion?: Never Total Score: 2 Score Reviewed/Action Taken: Yes VIC-7 AMB Questionnaire VIC-7 Date VIC - 7 assessed: 10/26/24 Feeling nervous, anxious, or on edge: 0 = Not at all Not being able to stop or control worryin = Not at all Worrying too much about different things: 0 = Not at all Trouble relaxin = Not at all Being so restless that it is hard to sit still: 0 = Not at all Becoming easily annoyed or irritable: 0 = Not at all Feeling afraid as if something awful might happen: 0 = Not at all Total VIC-7 score (0-4 normal; 5-9 mild; 10-14 moderate; 15-21 severe): 0 Source: Developed by Drs. Reynaldo Garcia, Sherri Suarez, Arthur Lebron and colleagues, with an educational toshia from [employer]. Review of Systems Const Denies chills, Denies fatigue, Denies fever(s) and Denies headache(s) ENT Denies dysphagia, Denies dizziness, Denies otalgia, Denies headache(s), Reports neck pain (mild), Denies odynophagia and Denies sore throat Card Denies chest pain, Denies palpitations and Denies dyspnea Resp Reports chest congestion (mild), Reports cough (on and off, mostly non- productive), Denies dyspnea and Denies wheezing GI Denies abdominal pain, Denies constipation, Denies dysphagia, Denies heartburn, Denies diarrhea, Denies nausea, Denies odynophagia and Denies vomiting Denies dysuria, Denies nocturia and Denies urinary frequency Musc Reports back pain (over the lower back - mild) and Reports neck pain (mild) Skin/Breast Denies rash Neuro Denies dizziness and Denies headache(s) Endo Denies fatigue and Denies palpitations Aller/Immun Denies wheezing Physical exam (Primary Care) Vital Signs: Last Vital Signs Pulse 79 10/26/24 10:05 BP 144/86 H 10/26/24 10:05 Pulse Ox 98 10/26/24 10:05 Oxygen Delivery Method Room Air 10/26/24 10:05 BMI result Body Mass Index 36.5 Tobacco/Smoking Status: Tobacco use Status Tobacco use date assessed 10/26/24 10/26/24 10:11 Patient Tobacco Use Status Former Tobacco user 10/26/24 10:11 Tobacco use type Cigarette 10/26/24 10:11 e-Cigarette/Vaping Use Never Used 10/26/24 10:11 PHQ-9: PHQ-9 Score PHQ-9: Total score 0 10/26/24 10:11 Depression Screening Interpretation: Negative Thrive Assessment: Date of Thrive Assessment Date Thrive assessed 10/26/24 10/26/24 10:11 Currently or been in a relationship where the following occur: No concerns reported Const General: no acute distress and alert HENMT Ears: TM's normal bilaterally and EAC's normal Throat: Yes posterior oropharynx normal and Yes tonsils normal (no TP congestion noted) Neck Neck: No lymphadenopathy Thyroid: Thyroid normal Resp Auscultation: no crackles, no rales, rhonchi (occasional ) upper bilaterally and wheezes (occasional, faint - noted on coughing/forced expiration) expiratory wheezes Cardio Rate: regular rate Rhythm: regular rhythm Heart sounds: no murmurs GI Palpation (GI): Soft to palpation and nontender Auscultation: normal bowel sounds General: Yes no CVA tenderness Back/Spine/Pelvis Back: no CVA tenderness Cervical Spine: Cervical spine tenderness Thoracic/Lumbar Spine: lumbar spinal tenderness Skin Rashes: no rashes Extrem General: Yes no clubbing, cyanosis or edema Results Reviewed Results Reviewed: Laboratory Tests 07/09/24 07/09/24 08/04/24 07:20 07:23 06:51 WBC 7.1 Hgb 14.2 Hct 42.9 Plt Count 241 Sodium 140 Potassium 4.1 Creatinine 0.86 Estimated GFR > 60 Fasting Glucose 131 H Hemoglobin A1c % 5.9 Calcium 9.3 AST 39 H ALT 38 Triglycerides 106 Cholesterol 106 LDL Cholesterol, Calc 39 HDL Cholesterol 46 25-OH Vitamin D Total 27.5 L TSH 1.62 Ur Specific [place] 1.015 Urine Protein Negative Urine Glucose (UA) Negative Urine Blood Negative Urine Nitrite Negative Ur Leukocyte Esterase Negative Coding Level of Care Code Est Pt Level 4 (48236) Diagnoses Essential hypertension I10 Atherosclerotic cardiovascular disease I25.10 Pure hypercholesterolemia E78.00 Impaired fasting glucose R73.01 Obstructive sleep apnea G47.33 Gastroesophageal reflux disease without esophagitis K21.9 Esophagitis presence: without esophagitis Allergic rhinitis, unspecified seasonality, unspecified trigger J30.9 Allergic rhinitis trigger: unspecified Allergic rhinitis seasonality: unspecified Cervical disc disease M50.90 Degeneration of intervertebral disc of lumbar region with discogenic back pain M51.360 Disc-related pain type: discogenic back pain only Gout, unspecified cause, unspecified chronicity, unspecified site M10.9 Gout site: unspecified site Gout etiology: unspecified cause Chronicity: unspecified Elevated LFTs R79.89 Vitamin D deficiency E55.9 Respiratory tract infection J98.8 Anxiety F41.9 Obesity (BMI 30-39.9) E66.9 Additional Codes PHQ-9 - 04841 - PHQ-9 Billing: Yes ([id number]) Assessment & Plan Assessment & Plan (1) Essential hypertension: Code(s): I10 - Essential (primary) hypertension Category: Medical Plan: Reinforced low sodium diet - goal is systolic BP of at least 120 to 130 mm or less Continue Metoprolol 100 mg BID, Valsartan 320 mg QD, HCTZ 25 mg QD and Amlodipine 10 mg QD He was also started on Spironolactone 25 mg QD by cardiology a couple of months ago - states that he's had no problems so far with the medication Patient is reminded to continue monitoring his blood pressure closely Will have him go and get some follow up labs done now to check on his potassium level (2) Atherosclerotic cardiovascular disease: Code(s): I25.10 - Atherosclerotic heart disease of [place] coronary artery without angina pectoris Category: Medical Plan: Coronary CTA done on 07/24/2023 showed (+) moderate stenosis in the distal segment of proximal LAD extending into mid LAD, ostial 1st diagonal with probably less than 70% stenosis, mild disease in the circumflex and right coronary artery He underwent an exercise stress test on 09/21/2023 - he was able to exercise for 10.1 METS on Kong protocol and reached 91% of maximum predicted heart rate, no chest pain, hypertensive blood pressure response, some downsloping STs with normal myocardial perfusion imaging He has been advised that overall, he has stable CAD and should continue working on risk factor(s) modification, including controlling his BP, cholesterol and blood sugar Continue Aspirin 81 mg QD Follow up with cardiology as scheduled - unless he has acute cardiac / coronary symptoms, will likely just have repeat stress testing in 1 year for follow up (3) Pure hypercholesterolemia: Code(s): E78.00 - Pure hypercholesterolemia, unspecified Category: Medical Plan: Results of his labs done back in July 2024 reviewed and discussed with patient Will have him go and get a couple of labs rechecked now, including his lipids and serum potassium level since he was started additionally on Aldactone by cardiology a couple of months ago Reinforced low cholesterol diet Continue Atorvastatin 10 mg QD - he was started on this by cardiology when his CT angiogram done in July 2023 came back showing decreased FFR in the mid LAD and proximal D1 (he could not tolerate Rosuvastatin due to side effects but is tolerating low dose Atorvastatin) Will recheck his labs and fasting lipids in 4 months for follow up (4) Impaired fasting glucose: Code(s): R73.01 - Impaired fasting glucose Category: Medical Plan: His FBS was elevated on his labs back in July 2024 at 131 mg/dl; his HgbA1c was borderline at 5.9% Reinforced low calorie/low carb diet; exercise as tolerated (5) Obstructive sleep apnea: Comment: uses CPAP. Code(s): G47.33 - Obstructive sleep apnea (adult) (pediatric) Category: Medical Plan: Continue using his BiPAP daily when sleeping at night - was diagnosed with MORIS many years ago and continues to benefit from the use of his BiPAP device (6) GERD (gastroesophageal reflux disease): Comment: EGD done 03/17/2014 Code(s): K21.9 - Gastro-esophageal reflux disease without esophagitis Category: Medical Qualifiers: Esophagitis presence: without esophagitis Qualified Code(s): K21.9 - Gastro-esophageal reflux disease without esophagitis Plan: Dietary restrictions reinforced Continue Pantoprazole 40 mg QD (7) Allergic rhinitis: Code(s): J30.9 - Allergic rhinitis, unspecified Category: Medical Qualifiers: Allergic rhinitis trigger: unspecified Allergic rhinitis seasonality: unspecified Qualified Code(s): J30.9 - Allergic rhinitis, unspecified Plan: Continue Fluticasone 50 mcg nasal spray QD PRN and Loratadine 10 mg QD PRN He was seen by an nurse consultant a few years ago but did not have the time to start getting the recommended allergy injections; patient states that he is now retired and can start injections if they are still recommended He was referred back to his nurse consultant previously but allergy testing could not be done until patient is able to stay off his Metoprolol for a week (8) Cervical disc disease: Code(s): M50.90 - Cervical disc disorder, unspecified, unspecified cervical region Category: Medical Plan: X-rays of the cervical spine done in the past (2012) showed (+) multilevel cervical spondylosis with high-grade neural foraminal narrowing on the right side at C3-C4 and C4-C5 and on the left at C3-C4 Repeat cervical spine x-rays done in January 2021 revealed (+) mild degenerative disc changes at C2-C3 with mild straightening of cervical lordosis suggestive of spasms Patient states that his neck pain/symptoms have been mostly manageable lately and he currently has no acute issues that needs to be addressed at this time (9) Lumbar degenerative disc disease: Code(s): M51.36 - Other intervertebral disc degeneration, lumbar region Category: Medical Qualifiers: Disc-related pain type: discogenic back pain only Qualified Code(s): M51.360 - Other intervertebral disc degeneration, lumbar region with discogenic back pain only Plan: Reinforced activity and weight-lifting restrictions MRI of the lumbar spine done back in 2018 revealed (+) lower lumbar spine spondylotic changes with far lateral left-sided disc protrusion at L3-L4 abutting the exiting left L3 nerve root and multilevel facet arthropathy but no central stenosis Repeat x-rays of the lumbar spine done back in January 2021 revealed (+) degenerative disc changes with ventral spondylosis over the upper and lower dorsal spine Patient states that his low back pains have also been mostly manageable lately and he does not need anything done for his lower back at this time (10) Gout: Code(s): M10.9 - Gout, unspecified Category: Medical Qualifiers: Gout site: unspecified site Gout etiology: unspecified cause Chronicity: unspecified Qualified Code(s): M10.9 - Gout, unspecified Plan: His serum uric acid level has improved significantly to 7.2 when it was last checked in February 2024 Patient has not had any acute flare ups of his gout lately Reinforced low purine diet Will recheck/monitor serum uric acid level and labs in a few months for follow up (11) Elevated LFTs: Code(s): R79.89 - Other specified abnormal findings of blood chemistry Category: Medical Plan: This was resolved on his previous labs last year but his serum AST went up slightly back in July 2024 - he is advised again that his elevated LFTs are most likely related to his weight (hepatosteatosis) Reinforced weight loss and exercise as tolerated; patient is also advised again to avoid alcohol and any Tylenol-containing medications as much as possible Will recheck his LFTs in 4 months for follow up (12) Vitamin D deficiency: Code(s): E55.9 - Vitamin D deficiency, unspecified Category: Medical Plan: Improving - continue Vitamin D3 2000 units QD (13) Respiratory tract infection: Code(s): J98.8 - Other specified respiratory disorders Category: Medical Plan: He appears to have some lingering chest congestion (also has faint expiratory wheezing at times when he is asked to cough), likely some residual effects of his bout with a respiratory tract infection about 2 to 3 weeks ago Will go ahead and start him empirically on Azithromycin QD x 5 days (14) Anxiety: Code(s): F41.9 - Anxiety disorder, unspecified Category: Medical Plan: Continue Clonazepam 0.5 mg QD PRN (15) Obesity (BMI 30-39.9): Code(s): E66.9 - Obesity, unspecified Category: Medical Plan: Reinforced diet/exercise as tolerated/lose weight Plan Follow up in 4 months Orders: Orders Comprehensive [place]. Panel Fast 4 Months E78.00 - Pure hypercholesterolemia, unspecified Lipid Panel 4 Months E78.00 - Pure hypercholesterolemia, unspecified TSH reflex Free T4 4 Months E78.00 - Pure hypercholesterolemia, unspecified Vitamin D 25-OH Total 4 Months E55.9 - Vitamin D deficiency, unspecified Uric Acid 4 Months M10.9 - Gout, unspecified Hemoglobin A1c 4 Months R73.01 - Impaired fasting glucose Comprehensive [place]. Panel Fast Today E78.00 - Pure hypercholesterolemia, unspecified Lipid Panel Today E78.00 - Pure hypercholesterolemia, unspecified Complete Blood Count Auto Diff 4 Months D64.9 - Anemia, unspecified UA CC w/rflx Micro + Cult 4 Months R30.0 - Dysuria Medications: New azithromycin take 500 mg today (day 1), then 250 mg for 4 days (days 2-5) PO 6 tabs 0RF
--- OUTSIDE RECORDS SUMMARY | 2024-10-26 12:05 | XMS_ITS ---
Author Organization [facility] Address [address] [place] [address] Care Team Providers Care Tank Bottom Assembler Name Role Phone Dakotah CANAS, [place] Primary Care Provider Hollie Khan Jr, August Ernst REASON FOR VISIT pathology Encounters Encounter Location Date Provider Diagnosis [facility] [address] [place] [address] 11/09/2023 August Khan Jr PLAN OF TREATMENT Next Appt Details Provider Name:August sequeira Jr, 11/07/2024 09:20:00 AM, [address], [address], [place], [address],
--- OUTSIDE RECORDS SUMMARY | 2024-10-26 12:05 | XMS_ITS ---
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
--- OUTSIDE RECORDS SUMMARY | 2024-10-26 12:05 | XMS_ITS | Patient Health Record ---
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) Active confirmed [id number] Problem Bianchi esophagus (K22.70) Active confirmed Bianchi esophagus ([id number]) VITAL SIGNS Temperature 97.9 degrees Fahrenheit 10/26/2023 Blood pressure diastolic 00 mm Hg 10/26/2023 Height 77.5 in 10/26/2023 Blood pressure systolic 000 mm Hg 10/26/2023 Weight 280 lbs 10/26/2023 BMI 32.77 kg/m2 10/26/2023 Encounters Encounter Location Date Provider Diagnosis [facility] [place] Out[place] [address] [place] [id number] 11/04/2023 August Khan Jr Encounter for screening colonoscopy Z12.11 ; Colon polyps K63.5 and Bianchi esophagus K22.70 [facility] [address] [place] [address] 10/26/2023 August Khan Jr Bianchi's esophagus without dysplasia K22.70 and Colon cancer screening Z12.11 [facility] [address] [place] [address] 11/09/2023 August Khan Jr [facility] [address] [place] [address] 01/22/2024 August Khan Jr ASSESSMENTS Encounter Date [...] Enmanuel sequeira Jr, 11/07/2024 09:20:00 AM, [address], [address], [place], [address], Insurance Providers Payer Name Payer Address Payer Phone Subscriber Number Group Number Insured Name Patient Relationship to Insured Coverage Start Date Coverage End Date [facility] [employer] [address] [address] [place], [place] [id number] AILYN COFFEY Self - patient is the insured MEDICAL (GENERAL) HISTORY Medical History History ICD Code Hypertension Coronary disease, medical management Hiatal hernia Bianchi's esophagus, EGD/18, short segme nt no dysplasia, five-year followup MORIS/CPAP Colonoscopy 03/13, normal, ten-year follo wup Surgical History Surgery Date(Month/Year) hernia repair appendectomy deviated septum repair
--- OUTSIDE RECORDS SUMMARY | 2024-10-26 12:06 | XMS_ITS ---
Author Organization [facility] Address [address] [place] [address] Care Team Providers Care Grommet Man Name Role Phone Dakotah CANAS, [place] Primary Care Provider Hollie Khan Jr, August Unavailable [phone] REASON FOR VISIT old recall date . Encounters Encounter Location Date Provider Diagnosis [facility] [address] [place] [address] 01/22/2024 August Khan Jr PLAN OF TREATMENT Next Appt Details Provider Name:August sequeira Jr, 11/07/2024 09:20:00 AM, [address], [address], [place], [address],
== END 2024-10-26 10:48 | disposition home or self-care (01) ==
PROVIDERS: PCP Internal Medicine; Visit Provider Internal Medicine
DX: I10 Essential (primary) hypertension (principal); I25.10 Atherosclerotic heart disease of native coronary artery without angina pectoris; E66.9 Obesity, unspecified; Z68.36 Body mass index [BMI] 36.0-36.9, adult; E78.00 Pure hypercholesterolemia, unspecified; R73.01 Impaired fasting glucose; G47.33 Obstructive sleep apnea (adult) (pediatric); K21.9 Gastro-esophageal reflux disease without esophagitis; J30.9 Allergic rhinitis, unspecified; M50.90 Cervical disc disorder, unspecified, unspecified cervical region; M51.360 Other intervertebral disc degeneration, lumbar region with discogenic back pain only; M10.9 Gout, unspecified

== ENCOUNTER 2024-10-26 10:03 | Outpatient (REF) | payer OTHER, SELFPAY ==
[2024-10-26 12:08] LABS: Alanine Aminotransferase 44 U/L (0-40); Anion Gap 11 (12-20); Aspartate Amino Transferase 52 U/L (5-37); Bilirubin Total 0.8 mg/dL (0.0-1.0); Blood Urea Nitrogen 12 mg/dL (9-16); Calcium 9.2 mg/dL (8.4-10.2); Carbon Dioxide 29 mmol/L (22-29); Chloride 100 mmol/L (96-108); Cholesterol 96 mg/dL (<200); Estimated Glomerular Filt Rate > 60; Glucose Fasting 131 mg/dL (60-99); HDL Cholesterol 42 mg/dL (>40); LDL Cholesterol Calculated 31 mg/dL (<100); Potassium 4.3 mmol/L (3.3-5.1); Sodium 136 mmol/L (135-145); Total Protein 7.5 g/dL (6.5-8.0); Triglycerides 118 mg/dL (<150)
[2024-10-26 12:18] LABS: Alkaline Phosphatase 63 U/L (39-117)
== END 2024-10-26 10:04 | disposition home or self-care (01) ==
LOC: HO.LAB 10:03
PROVIDERS: PCP Internal Medicine; Visit Provider Internal Medicine
DX: I10 Essential (primary) hypertension (principal); I25.10 Atherosclerotic heart disease of native coronary artery without angina pectoris; E78.00 Pure hypercholesterolemia, unspecified; R73.01 Impaired fasting glucose; G47.33 Obstructive sleep apnea (adult) (pediatric); K21.9 Gastro-esophageal reflux disease without esophagitis; J30.9 Allergic rhinitis, unspecified; M50.90 Cervical disc disorder, unspecified, unspecified cervical region; M51.360 Other intervertebral disc degeneration, lumbar region with discogenic back pain only; M10.9 Gout, unspecified; R79.89 Other specified abnormal findings of blood chemistry; E55.9 Vitamin D deficiency, unspecified; J98.8 Other specified respiratory disorders; Z79.899 Other long term (current) drug therapy
CPT/HCPCS: 36415; 80053; 80061; 96127; 99212

== ENCOUNTER 2025-01-24 09:55 | Outpatient (AMB) | payer OTHER, SELFPAY ==
--- NOTE | 2025-01-24 10:10 | A.OFFVIS_ITS ---
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 Allergies indomethacin Allergy (Unknown, Verified 10/26/24 10:37) tingling mouth rosuvastatin Adverse Reaction (Intermediate, Verified 10/26/24 10:58) Unknown Medication List - Last Reconciled 01/24/25 by Francisco Javier Jeter MD amlodipine 10 mg PO DAILY aspirin (Adult Aspirin Regimen) 81 mg PO DAILY atorvastatin 10 mg PO DAILY 90 days blood pressure monitor As directed - with MEDIUM BP cuff blood pressure test kit-medium As directed cholecalciferol (vitamin D3) 50 mcg PO DAILY 90 days clonazepam 0.5 mg PO BEDTIME PRN 30 days fluticasone propionate 50 mcg/actuation 2 sprays intranasal BID 90 days hydrochlorothiazide 25 mg PO DAILY loratadine 10 mg PO DAILY metoprolol tartrate 100 mg PO BID pantoprazole 40 mg PO DAILY 90 days spironolactone 25 mg PO DAILY triamcinolone acetonide (Nasacort) 2 sprays intranasal DAILY PRN valsartan 320 mg PO DAILY 30 days HPI Comments Details: Abel returns for follow-up. He has many comorbidities including morbid obesity, hypertension as well as positive family history of coronary disease in father. He underwent a comprehensive cardiac evaluation including echocardiogram, stress test and coronary CTA and is being treated for stable coronary disease. He states that he feels fine for the most part. He does not have any chest pains or shortness of breath or any cardiac symptoms. Rare brief fluttering which could indicate ectopy. Blood pressure is slightly elevated in the clinic but he states that at home it is lower and somewhere in the 130s. He blames it all on anxiety and white coat hypertension. Exercise The patient has been playing golf and has been physically active. He has been advised to maintain physical activity within tolerance, watching for symptoms such as chest pain. [facility] Medical History (Updated 10/26/24 @ 11:18 by Eber Claire MD) Essential hypertension Bianchi esophagus Hx of hiatal hernia CAD (coronary artery disease) Pure hypercholesterolemia Vitamin D deficiency Elevated LFTs Impaired fasting glucose Gout Bilateral hip pain Lumbar degenerative disc disease Cervical disc disease Obesity (BMI 30-39.9) Anxiety Allergic rhinitis Benign essential hypertension Normal colonoscopy (~03/17/14) Obstructive sleep apnea GERD (gastroesophageal reflux disease) Deviated septum Surgical History History of nasal surgery H/O colonoscopy History of esophagogastroduodenoscopy (EGD) History of hernia repair Hx of appendectomy Family History Father S/P CABG (coronary artery bypass graft) Social History Housing: House Alcohol intake: current Alcohol intake frequency: 0-2 drinks per day Alcohol type: beer and hard liquor Patient Tobacco Use Status: Former Tobacco user Tobacco use type: Cigarette e-Cigarette/Vaping Use: Never Used Second Hand Smoke Exposure: No service: No Current occupational status: retired Cognitive needs: No Hearing needs: No Vision needs: No Review of Systems Const Denies chills, Denies fatigue, Denies fever(s), Denies frequent falls, Denies weakness, Denies weight gain and Denies weight loss ENT Denies dizziness Card Denies chest pain, Denies leg edema, Denies lightheadedness, Denies palpitations, Denies dyspnea, Denies dyspnea on exertion, Denies orthopnea and Denies other (loss of consciousness) Resp Denies cough, Denies dyspnea and Denies dyspnea on exertion GI Denies hematochezia and Denies change in stool character Musc Denies abnormal gait, Denies muscle weakness, Denies numbness, Denies radiating pain into limb and Denies tingling Neuro Denies abnormal gait, Denies dizziness, Denies frequent falls, Denies numbness, Denies tingling and Denies weakness Endo Denies fatigue and Denies palpitations Physical Exam Vital Signs: Last Vital Signs Pulse 78 01/24/25 10:11 BP 144/86 H 01/24/25 10:11 BMI result Body Mass Index 36.8 Const General: comfortable and no acute distress Orientation/consciousness: patient oriented x3 HEENT Other: Unremarkable Head: Yes normal to inspection Neck Neck: Yes normal visual inspection Chest Chest palpation & inspection: normal inspection of the chest Resp Auscultation: clear to auscultation bilaterally Cardio Palpation: normal PMI Heart sounds: S1 normal heart sound present, S2 normal heart sound present, no gallops, no murmurs and no rubs GI Palpation (GI): Soft to palpation Back/Spine/Pelvis Other: unremarkable Skin General skin exam: no rashes or lesions noted Neuro General: patient oriented x3 Extrem General: Yes normal to inspection Psych Mental Status: mental status grossly normal Assessment & Plan Assessment & Plan (1) Atherosclerotic cardiovascular disease: Code(s): I25.10 - Atherosclerotic heart disease of [place] coronary artery without angina pectoris Category: Medical (2) HTN (hypertension): Code(s): I10 - Essential (primary) hypertension Category: Medical Qualifiers: Hypertension type: primary hypertension Qualified Code(s): I10 - Essential (primary) hypertension (3) Ascending aorta dilatation: Code(s): I77.810 - Thoracic aortic ectasia Category: Medical (4) Obesity (BMI 30-39.9): Code(s): E66.9 - Obesity, unspecified Category: Medical Plan Cardiac studies reviewed. Echocardiogram with LVEF of 55-60%. Wall motion abnormalities could not be seen due to suboptimal endocardial definition. No significant valvular issues. Ascending aortic size 4 cm. In the Holter, underlying rhythm is sinus with some sinus bradycardia but otherwise unremarkable. In the coronary CTA, moderate stenosis in the distal segment of proximal LAD extending into mid LAD. Ostial 1st diagonal with probably less than 70% stenosis. Mild disease in the circumflex and right coronary artery. With regard to FFR, diminished in the mid LAD and proximal D1. In the exercise stress test, he was able to exercise for 10.1 METS on Kong protocol and reached 91% of maximum predicted heart rate. No chest pain. Hypertensive blood pressure response. Some downsloping STs. However, perfusion imaging was unremarkable. Overall, clinically he is stable without any angina or other concerning cardiac symptoms. He can remain on aspirin and statins. For statins, tried rosuvastatin and had side effects and hence only on a small dose of atorvastatin. LDL 31 mg/dL. Triglycerides 180 mg/dL. With regard to hypertension, home blood pressures are slightly lower and in the 130s. He is already on regimen including many medications including beta- blockers, amlodipine, hydrochlorothiazide, valsartan, spironolactone. No further changes. With regard to weight, again discussed about this and goals of weight loss and medical benefits. Hopefully, he can lose some weight. He states he is trying to be active. Discussion Notes During our discussion, I emphasized the importance of controlling hypertension and the role of weight reduction in improving cardiovascular outcomes. We reviewed the patient's BP readings and agreed the home environment reflects better BP control. I encouraged continuous physical activity, such as playing golf, to aid weight management. We discussed the continued monitoring of coronary artery disease with symptom-driven diagnostics to anticipate any necessary interventions. The patient expressed understanding of the importance of these strategies and agreed with the plan. Patient was informed and verbally consented to the use of an ambient scribe for clinic note documentation during this visit. Patient Instructions: - Maintain physical activity, like playing golf, as tolerated. - Monitor blood pressure at home and report significant changes. - Focus on dietary modifications to support weight reduction. - Be alert for symptoms like chest pain and seek care if they occur. - Return for follow-up as scheduled and if you notice any concerning symptoms. Coding Level of Care Code Est Pt Level 4 (03989) Complex EM visit Add On G2211 Diagnoses Atherosclerotic cardiovascular disease I25.10 Primary hypertension I10 Hypertension type: primary hypertension Ascending aorta dilatation I77.810 Obesity (BMI 30-39.9) E66.9
[2025-01-24 10:11] VITALS: BP 144/86; PULSE 78; BMI 36.8
--- OUTSIDE RECORDS SUMMARY | 2025-01-24 10:33 | XMS_ITS ---
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 Encounters Encounter Location Date Provider Diagnosis [facility] Outpatient [address] [place] [phone] 11/04/2023 August Khan Jr Encounter for screening colonoscopy Z12.11 ; Colon polyps K63.5 and Howard esophagus K22.70 Assessments Encounter Date Diagnosis (ICD Code) Assessment Notes Treatment Notes Treatment Clinical Notes Section Notes 11/04/2023 Encounter for screening colonoscopy (ICD-10 - Z12.11) 11/04/2023 Colon polyps (ICD-10 - K63.5) 11/04/2023 Howard esophagus (ICD-10 - K22.70) Plan Of Treatment Next Appt Details Provider Name:August sequeira Jr, 02/09/2025 02:55:00 PM, [address], [address], [place], [id number], Progress Notes * AILYN BAARJASDOB:[birth year] (64 yo M)Acc No.[id number]:11/04/2023 EGD and COL/MAC Patient:?AILYN BARAJAS Provider:?August Khan MD :1960???Age:63 Y???Sex:Male Lawrence e:11/04/2023 Address:[address] [place], [place] [address], [id number] Pcp:Eber Claire MD Subjective: * Chief Complaints: * ???1. Howard's,screening. * Medical History:? Objective: * Vitals:? Assessment: * Assessment: 1.?Encounter for screening c olonoscopy - Z12.11 (Primary)???2.?Colon polyps - K63.5???3.?Howard esophagus - K22.70??? Plan: * Treatment: * Procedure Codes:?66745 COLON OSCOPY AND BIOPSY, 47244 UPPER GI ENDOSCOPY, BIOPSY * * The named appointment provid er may or may not be the originator of this progress note, and it is not deemed complete until electronically signed by the appointment provider. Sign off status: Pending * Provider:?August Khan MD Date:?0 11/04/2023 Generated for Sherine nash/Yessi/eTransmitting on:?01/24/2025 10:32 AM EDT
== END 2025-01-24 10:33 | disposition home or self-care (01) ==
LOC: HO.HCS 09:55
PROVIDERS: PCP Internal Medicine; Visit Provider Internal Medicine
DX: I25.10 Atherosclerotic heart disease of native coronary artery without angina pectoris (principal); I10 Essential (primary) hypertension; I77.810 Thoracic aortic ectasia; E66.9 Obesity, unspecified
CPT/HCPCS: 99214; G2211

== ENCOUNTER → 2025-01-24 09:55 | Outpatient (BNVA) | payer OTHER, SELFPAY | PROVIDERS: PCP Internal Medicine; Visit Provider Internal Medicine | DX: I10 Essential (primary) hypertension (principal); I25.10 Atherosclerotic heart disease of native coronary artery without angina pectoris; I77.810 Thoracic aortic ectasia; E66.01 Morbid (severe) obesity due to excess calories; Z82.49 Family history of ischemic heart disease and other diseases of the circulatory system; Z68.36 Body mass index [BMI] 36.0-36.9, adult | CPT/HCPCS: 99212 ==

== ENCOUNTER 2025-03-10 06:01 | Outpatient (REF) | payer OTHER, SELFPAY ==
[2025-03-10 10:28] LABS: MANUAL DIFF FLAG NO
[2025-03-10 10:36] LABS: Appearance Urine Cloudy; Glucose Urine UA Negative (Negative); PH 5.5 (5.0-9.0); Specific Gravity - Urine 1.015 (1.005-1.025); UMIC TRIGGER UACC YES
[2025-03-10 10:50] LABS: Hematocrit 42.5 % (42.0-52.0); Hemoglobin 14.3 g/dl (14.0-18.0); Imm Gran Abs Auto 0.05 X10*3/uL (0.00-0.03); Imm Gran Pct Auto 0.6 % (0.0-0.4); Lymphocytes Absolute Auto 1.3 X10*3/uL (1.2-4.9); Mean Corpuscular HGB Conc 33.6 g/dl (31.0-36.0); Mean Corpuscular Hemoglobin 31.1 pg (27.0-33.0); Mean Corpuscular Volume 92.4 fL (80.0-98.0); NRBC Abs Auto 0.000 X10*3/uL (0.0-0.012); NRBC Pct Auto 0.0 /100WBC (0.0-0.2); Platelet Count 249 X10*3/uL (160-400); Red Blood Count 4.60 X10*6/uL (4.60-5.80); White Blood Count 7.7 X10*3/uL (4.8-10.8)
[2025-03-10 10:56] LABS: Hemoglobin A1C 164.6350 umol/L; Total Hemoglobin (HGBA1C) 3810.6124 umol/L
[2025-03-10 11:11] LABS: Alanine Aminotransferase 41 U/L (0-40); Albumin Level 4.0 g/dL (3.5-5.0); Alkaline Phosphatase 50 U/L (39-117); Anion Gap 13 (12-20); Aspartate Amino Transferase 48 U/L (5-37); Blood Urea Nitrogen 10 mg/dL (9-16); Calcium 9.2 mg/dL (8.4-10.2); Carbon Dioxide 28 mmol/L (22-29); Chloride 100 mmol/L (96-108); Cholesterol 93 mg/dL (<200); Estimated Glomerular Filt Rate > 60; HDL Cholesterol 41 mg/dL (>40); Potassium 4.1 mmol/L (3.3-5.1); Sodium 137 mmol/L (135-145); Total Protein 6.6 g/dL (6.5-8.0); Triglycerides 113 mg/dL (<150); Uric Acid 7.2 mg/dL (3.4-7.0)
== END 2025-03-10 06:02 | disposition home or self-care (01) ==
LOC: HO.HMGCLDS 06:01
PROVIDERS: PCP Internal Medicine; Visit Provider Internal Medicine
DX: R73.01 Impaired fasting glucose (principal); E78.00 Pure hypercholesterolemia, unspecified; E55.9 Vitamin D deficiency, unspecified; M10.9 Gout, unspecified; D64.9 Anemia, unspecified
CPT/HCPCS: 36415; 80053; 80061; 81001; 82306; 83036; 84443; 84550; 85025

== ENCOUNTER 2025-03-13 09:06 | Outpatient (REF) | payer OTHER, SELFPAY ==
--- NOTE | ~2025-03-13 | XR_ITS ---
CLINICAL HISTORY: M25.551 - Pain in right hip Right hip two views Comparison: None provided Findings: No acute fracture or dislocation identified. Mild degenerative change in right hip joint. No radiopaque foreign body noted. Impression: No acute bony abnormality This document has been electronically signed by: Jeremi Main MD on 03/13/2025 20:04:33
--- NOTE | ~2025-03-13 | XR_ITS ---
CLINICAL HISTORY: M25.562 - Pain in left knee Left knee four views Comparison: None provided Findings: No acute fracture or dislocation noted. No significant joint effusion identified. Mild degenerative change with joint space loss. This is most prominent in medial compartment. No soft tissue foreign body. Impression: No acute bony abnormality This document has been electronically signed by: Jeremi Main MD on 03/13/2025 20:04:10
== END 2025-03-13 09:07 | disposition home or self-care (01) ==
LOC: HO.XRAY 09:06
PROVIDERS: PCP Internal Medicine; Visit Provider Internal Medicine
DX: M25.562 Pain in left knee (principal); M25.551 Pain in right hip; I10 Essential (primary) hypertension; I25.10 Atherosclerotic heart disease of native coronary artery without angina pectoris; E78.00 Pure hypercholesterolemia, unspecified; R73.01 Impaired fasting glucose; G47.33 Obstructive sleep apnea (adult) (pediatric); K21.9 Gastro-esophageal reflux disease without esophagitis; J30.9 Allergic rhinitis, unspecified; M50.90 Cervical disc disorder, unspecified, unspecified cervical region; M51.360 Other intervertebral disc degeneration, lumbar region with discogenic back pain only; M10.9 Gout, unspecified; R79.89 Other specified abnormal findings of blood chemistry; E55.9 Vitamin D deficiency, unspecified; F41.9 Anxiety disorder, unspecified; E66.9 Obesity, unspecified
CPT/HCPCS: 73502; 73564; 96127; 99212

== ENCOUNTER 2025-03-13 09:06 | Outpatient (AMB) | payer OTHER, SELFPAY ==
--- NOTE | 2025-03-13 09:12 | A.OFFPC_ITS ---
Vital Signs 03/13/25 09:13 Height 6 ft 4 in Weight 306 lb BMI 37.2 BP 142/84 H Blood Pressure Location Lt brachial Position Sitting Pulse 74 Pulse Source Pulse Oximeter Pulse Oximetry (%) 99 Oxygen Delivery Method Room Air Intake Visit Reasons: HTN, hyperlipidemia, CAD Intake Note: Patient here for a follow up HTN, Hyperlipidemia,CAD Residential Service Technician Required: No Accompanied by: Self / Same As Patient Allergies indomethacin Allergy (Unknown, Verified 03/13/25 09:24) tingling mouth rosuvastatin Adverse Reaction (Intermediate, Verified 03/13/25 09:24) Unknown Medication List - Last Reconciled 03/13/25 by Eber Claire MD amlodipine 10 mg PO DAILY aspirin (Adult Aspirin Regimen) 81 mg PO DAILY atorvastatin 10 mg PO DAILY 90 days blood pressure monitor As directed - with MEDIUM BP cuff blood pressure test kit-medium As directed cholecalciferol (vitamin D3) 50 mcg PO DAILY 90 days clonazepam 0.5 mg PO BEDTIME PRN 30 days fluticasone propionate 50 mcg/actuation 2 sprays intranasal BID 90 days hydrochlorothiazide 25 mg PO DAILY loratadine 10 mg PO DAILY metoprolol tartrate 100 mg PO BID pantoprazole 40 mg PO DAILY 90 days spironolactone 25 mg PO DAILY valsartan 320 mg PO DAILY 30 days Tobacco use date assessed: 10/26/24 Dental Screening Dental Screen Date: 10/26/24 HPI HTN, hyperlipidemia, CAD HPI Details Patient comes in today for his follow up visit States that he has been experiencing a lot of problems with his left knee and right hip lately Feels that his left knee often tends to pop out on him when he stands up; he has also been experiencing frequent right hip pain and discomfort lately States that he has not been able to play any golf for about a month now due to his hip and knee issues and believes that this is also a reason why his HgbA1c has gone up slightly lately as he can hardly do any walking or activities without aggravating his hip and knee He has also been experiencing increased nasal congestion lately as he has not been able to get his allergy nasal sprays Rx refilled for unknown reasons States that he is still getting allergy injections 2 to 3 times a week but does not think that these are helping much - recalls that his allergy tests were done a long time ago with Dr. Malladi He denies any headaches or dizziness Denies any chest pains, no increased SOB No nausea/vomiting, no abdominal pain No change in bowel habits noted He had his follow up labs done a few days ago - to discuss his results [facility] Medical History (Updated 03/13/25 @ 10:28 by Eber Claire MD) Essential hypertension Bianchi esophagus Hx of hiatal hernia CAD (coronary artery disease) Pure hypercholesterolemia Vitamin D deficiency Elevated LFTs Impaired fasting glucose Gout Bilateral hip pain Lumbar degenerative disc disease Cervical disc disease Obesity (BMI 30-39.9) Anxiety Allergic rhinitis Benign essential hypertension Normal colonoscopy (~03/17/14) Obstructive sleep apnea GERD (gastroesophageal reflux disease) Deviated septum Surgical History History of nasal surgery H/O colonoscopy History of esophagogastroduodenoscopy (EGD) History of hernia repair Hx of appendectomy Family History Father S/P CABG (coronary artery bypass graft) Social History Housing: House Alcohol intake: current Alcohol intake frequency: 0-2 drinks per day Alcohol type: beer and hard liquor Patient Tobacco Use Status: Former Tobacco user Tobacco use type: Cigarette e-Cigarette/Vaping Use: Never Used Second Hand Smoke Exposure: No service: No Current occupational status: retired Cognitive needs: No Hearing needs: No Vision needs: No Questionnaire PHQ-9 Over the last 2 weeks, how often have you been bothered by any of the following problems? 1. Little interest or pleasure in doing things: not at all 2. Feeling down, depressed, or hopeless: not at all 3. Trouble falling or staying asleep, or sleeping too much: not at all 4. Feeling tired or having little energy: not at all 5. Poor appetite or overeating: not at all 6. Feeling bad about yourself - or that you are a failure or have let yourself or your family down: not at all 7. Trouble concentrating on things, such as reading the newspaper or watching television: not at all 8. Moving or speaking so slowly that other people could have noticed. Or the opposite - being so fidgety or restless that you have been moving around a lot more than usual: not at all 9. Thoughts that you would be better off or of hurting yourself in some way: not at all Total score: 0 Depression Screening Interpretation: Negative Depression Screening Done: Yes 40309 - PHQ-9 Billing: Yes Source: Developed by Drs. Reynaldo Garcia, Sherri Suarez, Arthur Lebron and colleagues, with an educational toshia from [employer]. Thrive Questionnaire Date Thrive assessed: 03/13/25 I am a: Patient What is your living situation today?: I have a steady place to live Within the past 12 months, did the food you bought not last and you didn't have the money to get more?: Never true Within the past 12 months, did you worry whether your food would run out before you got money to buy more?: Never true Do you have trouble paying for medicines?: No Do you have trouble getting transportation to medical appointments?: No Do you have trouble paying your heating and electricity bill?: No Do you have trouble taking care of your child, family member or friend?: No Do you have trouble with day-to-day activities such as bathing, preparing meals, shopping, managing finances, etc.?: No Are you currently unemployed and looking for a job?: No Are you interested in more education?: No Please select the resources that you would like help with: None Currently or been in a relationship where the following occur: No concerns reported THRIVE Score: 0 AUDIT C Alcohol Use Questionnaire (AUDIT-C) 1. How often do you have a drink containing alcohol?: 2-4 times a month 2. How many drinks containing alcohol do you have on a typical day when you are drinking?: 3 or 4 3. How often do you have six or more drinks on one occasion?: Less than monthly Total Score: 4 Score Reviewed/Action Taken: Yes VIC-7 AMB Questionnaire VIC-7 Date VIC - 7 assessed: 03/13/25 Feeling nervous, anxious, or on edge: 0 = Not at all Not being able to stop or control worryin = Not at all Worrying too much about different things: 0 = Not at all Trouble relaxin = Not at all Being so restless that it is hard to sit still: 0 = Not at all Becoming easily annoyed or irritable: 0 = Not at all Feeling afraid as if something awful might happen: 0 = Not at all Total VIC-7 score (0-4 normal; 5-9 mild; 10-14 moderate; 15-21 severe): 0 Source: Developed by Drs. Reynaldo Garcia, Sherri Suarez, Arthur Lebron and colleagues, with an educational toshia from [employer]. Review of Systems Const Denies chills, Denies fatigue, Denies fever(s) and Denies headache(s) ENT Denies dysphagia, Denies dizziness, Denies otalgia, Denies headache(s), Reports nasal congestion (often - due to chronic allergies), Reports neck pain (mild), Denies odynophagia and Denies sore throat Card Denies chest pain, Denies palpitations and Denies dyspnea Resp Denies chest congestion, Denies cough and Denies dyspnea GI Denies abdominal pain, Denies constipation, Denies dysphagia, Denies heartburn, Denies diarrhea, Denies nausea, Denies odynophagia and Denies vomiting Denies difficulty urinating, Denies dysuria, Denies nocturia and Denies urinary frequency Musc Reports back pain (over the lower back - mild), Reports arthralgias (in the right hip and the left knee lately) and Reports neck pain (mild) Skin/Breast Denies rash Neuro Denies dizziness and Denies headache(s) Endo Denies fatigue and Denies palpitations Physical exam (Primary Care) Vital Signs: Last Vital Signs Pulse 74 03/13/25 09:13 BP 142/84 H 03/13/25 09:13 Pulse Ox 99 03/13/25 09:13 Oxygen Delivery Method Room Air 03/13/25 09:13 BMI result Body Mass Index 37.2 Tobacco/Smoking Status: Tobacco use Status Tobacco use date assessed 10/26/24 03/13/25 09:18 Patient Tobacco Use Status Former Tobacco user 03/13/25 09:18 Tobacco use type Cigarette 03/13/25 09:18 e-Cigarette/Vaping Use Never Used 03/13/25 09:18 PHQ-9: PHQ-9 Score PHQ-9: Total score 0 03/13/25 09:18 Depression Screening Interpretation: Negative Thrive Assessment: Date of Thrive Assessment Date Thrive assessed 03/13/25 03/13/25 09:18 Currently or been in a relationship where the following occur: No concerns reported Const General: no acute distress and alert HENMT Ears: TM's normal bilaterally and EAC's normal Throat: Yes posterior oropharynx normal and Yes tonsils normal (no TP congestion noted) Neck Neck: No lymphadenopathy Thyroid: Thyroid normal Resp Auscultation: no crackles, no rales, rhonchi (occasional ) upper bilaterally and wheezes (occasional, faint - noted on coughing/forced expiration) expiratory wheezes Cardio Rate: regular rate Rhythm: regular rhythm Heart sounds: no murmurs GI Palpation (GI): Soft to palpation and nontender Auscultation: normal bowel sounds General: Yes no CVA tenderness Back/Spine/Pelvis Back: no CVA tenderness Cervical Spine: Cervical spine tenderness Thoracic/Lumbar Spine: lumbar spinal tenderness Skin Rashes: no rashes Extrem General: Yes no clubbing, cyanosis or edema Right lower extremity: hip/thigh Details: tenderness (mild) Location: of the hip Left lower extremity: knee Details: tenderness (mild) Location: of the patella and of the pre-patellar area; no swelling Results Reviewed Results Reviewed: Laboratory Tests 03/10/25 06:11 WBC 7.7 Hgb 14.3 Hct 42.5 Plt Count 249 Sodium 137 Potassium 4.1 Creatinine 0.84 Estimated GFR > 60 Fasting Glucose 138 H Hemoglobin A1c % 6.1 H Uric Acid 7.2 H Calcium 9.2 Total Bilirubin 0.7 AST 48 H ALT 41 H Triglycerides 113 Cholesterol 93 LDL Cholesterol, Calc 30 HDL Cholesterol 41 25-OH Vitamin D Total 21.8 L TSH 1.43 Ur Specific [place] 1.015 Urine Protein Negative Urine Glucose (UA) Negative Urine Blood Small (1+) H Urine Nitrite Negative Ur Leukocyte Esterase Negative Coding Level of Care Code Est Pt Level 4 (73692) Complex EM visit Add On G2211 Diagnoses Essential hypertension I10 Atherosclerotic cardiovascular disease I25.10 Pure hypercholesterolemia E78.00 Impaired fasting glucose R73.01 Obstructive sleep apnea G47.33 Gastroesophageal reflux disease without esophagitis K21.9 Esophagitis presence: without esophagitis Allergic rhinitis, unspecified seasonality, unspecified trigger J30.9 Allergic rhinitis trigger: unspecified Allergic rhinitis seasonality: unspecified Cervical disc disease M50.90 Degeneration of intervertebral disc of lumbar region with discogenic back pain M51.360 Disc-related pain type: discogenic back pain only Left knee pain, unspecified chronicity M25.562 Chronicity: unspecified Right hip pain M25.551 Gout, unspecified cause, unspecified chronicity, unspecified site M10.9 Gout site: unspecified site Gout etiology: unspecified cause Chronicity: unspecified Elevated LFTs R79.89 Vitamin D deficiency E55.9 Anxiety F41.9 Obesity (BMI 30-39.9) E66.9 Additional Codes PHQ-9 - 97957 - PHQ-9 Billing: Yes ([id number]) Assessment & Plan Assessment & Plan (1) Essential hypertension: Code(s): I10 - Essential (primary) hypertension Category: Medical Plan: Reinforced low sodium diet - goal is systolic BP of at least 120 to 130 mm or less Continue Metoprolol 100 mg BID, Valsartan 320 mg QD, HCTZ 25 mg QD, Amlodipine 10 mg QD and Spironolactone 25 mg QD Patient is reminded to continue monitoring his blood pressure closely (2) Atherosclerotic cardiovascular disease: Code(s): I25.10 - Atherosclerotic heart disease of enterprise coronary artery without angina pectoris Category: Medical Plan: Coronary CTA done on 07/24/2023 showed (+) moderate stenosis in the distal segment of proximal LAD extending into mid LAD, ostial 1st diagonal with probably less than 70% stenosis, mild disease in the circumflex and right coronary artery He underwent an exercise stress test on 09/21/2023 - he was able to exercise for 10.1 METS on Kong protocol and reached 91% of maximum predicted heart rate, no chest pain, hypertensive blood pressure response, some downsloping STs with normal myocardial perfusion imaging He has been advised that overall, he has stable CAD and should continue working on risk factor(s) modification, including controlling his BP, cholesterol and blood sugar Continue Aspirin 81 mg QD Follow up with cardiology as scheduled - unless he has acute cardiac / coronary symptoms, will likely just have repeat stress testing in 1 year for follow up (3) Pure hypercholesterolemia: Code(s): E78.00 - Pure hypercholesterolemia, unspecified Category: Medical Plan: Results of his labs done a few days ago reviewed and discussed with patient Reinforced low cholesterol diet Continue Atorvastatin 10 mg QD - he was started on this by cardiology when his CT angiogram done in July 2023 came back showing decreased FFR in the mid LAD and proximal D1 (he could not tolerate Rosuvastatin due to side effects but is tolerating low dose Atorvastatin) Will recheck his labs and fasting lipids in 4 months for follow up (4) Impaired fasting glucose: Code(s): R73.01 - Impaired fasting glucose Category: Medical Plan: His FBS is still elevated at 138 mg/dl on his recent labs; HgbA1c was at 6.1% (was previously at 5.9% a few months ago and he believes that his decreased activity level recently due to his knee and hip issues are contributing to the rise in his HgbA1c) Reinforced low calorie/low carb diet; exercise as tolerated (5) Obstructive sleep apnea: Comment: uses CPAP. Code(s): G47.33 - Obstructive sleep apnea (adult) (pediatric) Category: Medical Plan: Continue using his BiPAP daily when sleeping at night - was diagnosed with MORIS many years ago and continues to benefit from the use of his BiPAP device (6) GERD (gastroesophageal reflux disease): Comment: EGD done 03/17/2014 Code(s): K21.9 - Gastro-esophageal reflux disease without esophagitis Category: Medical Qualifiers: Esophagitis presence: without esophagitis Qualified Code(s): K21.9 - Gastro-esophageal reflux disease without esophagitis Plan: Dietary restrictions reinforced Continue Pantoprazole 40 mg QD (7) Allergic rhinitis: Code(s): J30.9 - Allergic rhinitis, unspecified Category: Medical Qualifiers: Allergic rhinitis trigger: unspecified Allergic rhinitis seasonality: unspecified Qualified Code(s): J30.9 - Allergic rhinitis, unspecified Plan: Continue Fluticasone 50 mcg nasal spray QD PRN (Rx refilled) and Loratadine 10 mg QD PRN He previously had allergy testing done but recalls this was from several years ago He has been getting allergy injections about 3 times a week for a while now and he does not think that these are helping much Will refer him back to principal scientist for reevaluation of his allergies - may need to have allergy testing repeated (8) Cervical disc disease: Code(s): M50.90 - Cervical disc disorder, unspecified, unspecified cervical region Category: Medical Plan: X-rays of the cervical spine done in the past (2012) showed (+) multilevel cervical spondylosis with high-grade neural foraminal narrowing on the right side at C3-C4 and C4-C5 and on the left at C3-C4 Repeat cervical spine x-rays done in January 2021 revealed (+) mild degenerative disc changes at C2-C3 with mild straightening of cervical lordosis suggestive of spasms Patient states that his neck pain/symptoms have been mostly manageable lately and he currently has no acute issues that needs to be addressed at this time (9) Lumbar degenerative disc disease: Code(s): M51.36 - Other intervertebral disc degeneration, lumbar region Category: Medical Qualifiers: Disc-related pain type: discogenic back pain only Qualified Code(s): M51.360 - Other intervertebral disc degeneration, lumbar region with discogenic back pain only Plan: Reinforced activity and weight-lifting restrictions MRI of the lumbar spine done back in 2018 revealed (+) lower lumbar spine spondylotic changes with far lateral left-sided disc protrusion at L3-L4 abutting the exiting left L3 nerve root and multilevel facet arthropathy but no central stenosis Repeat x-rays of the lumbar spine done back in January 2021 revealed (+) degenerative disc changes with ventral spondylosis over the upper and lower dorsal spine Patient states that his low back pains have also been mostly manageable lately and he still does not need anything done for his lower back at this time (10) Left knee pain: Code(s): M25.562 - Pain in left knee Category: Medical Qualifiers: Chronicity: unspecified Qualified Code(s): M25.562 - Pain in left knee Plan: Will send patient for x-rays of the left knee for further evaluation He is advised that he will likely be referred to orthopedics for further evaluation and management of his recent left knee and right hip issues but we will wait and see how his x-rays come out first (11) Right hip pain: Code(s): M25.551 - Pain in right hip Category: Medical Plan: Hip x-rays done back in 2020 came out normal Will send patient for repeat right hip x-rays for further evaluation (12) Gout: Code(s): M10.9 - Gout, unspecified Category: Medical Qualifiers: Gout site: unspecified site Gout etiology: unspecified cause Chronicity: unspecified Qualified Code(s): M10.9 - Gout, unspecified Plan: His serum uric acid level has improved significantly to 7.2 when it was last checked in February 2024; it remains unchanged on his recent labs Patient has not had any acute flare ups of his gout lately Reinforced low purine diet Will recheck/monitor serum uric acid level and labs in a few months for follow up (13) Elevated LFTs: Code(s): R79.89 - Other specified abnormal findings of blood chemistry Category: Medical Plan: This was resolved on his previous labs last year but his serum AST went up slightly back in July 2024 - he is advised again that his elevated LFTs are most likely related to his weight (hepatosteatosis) Reinforced weight loss and exercise as tolerated; patient is also advised again to avoid alcohol and any Tylenol-containing medications as much as possible Will recheck his LFTs in 4 months for follow up (14) Vitamin D deficiency: Code(s): E55.9 - Vitamin D deficiency, unspecified Category: Medical Plan: Continue Vitamin D3 2000 units QD - his vitamin D level has declined slightly on his recent labs (15) Anxiety: Code(s): F41.9 - Anxiety disorder, unspecified Category: Medical Plan: Continue Clonazepam 0.5 mg QD PRN (16) Obesity (BMI 30-39.9): Code(s): E66.9 - Obesity, unspecified Category: Medical Plan: Reinforced diet/exercise as tolerated/lose weight Plan Follow up in 4 months Orders: Orders XR knee LT 4V Today M25.562 - Pain in left knee Complete Blood Count Auto Diff 4 Months D64.9 - Anemia, unspecified Lipid Panel 4 Months E78.00 - Pure hypercholesterolemia, unspecified Hemoglobin A1c 4 Months R73.01 - Impaired fasting glucose TSH reflex Free T4 4 Months E78.00 - Pure hypercholesterolemia, unspecified UA CC w/rflx Micro + Cult 4 Months R30.0 - Dysuria Vitamin D 25-OH Total 4 Months E55.9 - Vitamin D deficiency, unspecified Uric Acid 4 Months M10.9 - Gout, unspecified XR hip RT min 2V Today M25.551 - Pain in right hip Comprehensive [place]. Panel Fast 4 Months E78.00 - Pure hypercholesterolemia, unspecified Referrals Allergy & Immunology Referral Z91.09 - Other allergy status, other than to drugs and biological substances Medications: Refilled fluticasone propionate 50 mcg/actuation 2 sprays intranasal BID 48 mL 1RF 90 days J30.9 - Allergic rhinitis, unspecified
[2025-03-13 09:13] VITALS: BP 142/84; PULSE 74; O2SAT 99; BMI 37.2
== END 2025-03-13 09:59 | disposition home or self-care (01) ==
LOC: HO.HMCH 09:06
PROVIDERS: PCP Internal Medicine; Visit Provider Internal Medicine
DX: I10 Essential (primary) hypertension (principal); I25.10 Atherosclerotic heart disease of native coronary artery without angina pectoris; E78.00 Pure hypercholesterolemia, unspecified; R73.01 Impaired fasting glucose; G47.33 Obstructive sleep apnea (adult) (pediatric); K21.9 Gastro-esophageal reflux disease without esophagitis; J30.9 Allergic rhinitis, unspecified; M50.90 Cervical disc disorder, unspecified, unspecified cervical region; M51.360 Other intervertebral disc degeneration, lumbar region with discogenic back pain only; M25.562 Pain in left knee; M25.551 Pain in right hip; M10.9 Gout, unspecified

== ENCOUNTER → 2025-03-13 10:14 | Outpatient (BNV) | payer OTHER, SELFPAY | PROVIDERS: PCP Internal Medicine; Visit Provider Radiology Diagnostic Radiology | DX: M17.12 Unilateral primary osteoarthritis, left knee (principal); M16.11 Unilateral primary osteoarthritis, right hip | CPT/HCPCS: 73502; 73564 ==

== ENCOUNTER 2025-08-29 09:31 | Outpatient (AMB) | payer OTHER, SELFPAY ==
--- NOTE | 2025-08-29 10:06 | MHC.OFFVIS ---
Vital Signs 08/29/25 10:08 Height 6 ft 4 in Weight 309 lb 1.409 oz BMI 37.6 BP 140/82 H Blood Pressure Location Lt brachial Position Sitting Pulse 66 Pulse Source Monitor Intake Visit Reasons: 6 mth f/up [facility] Required: No Allergies indomethacin Allergy (Unknown, Verified 08/29/25 10:10) tingling mouth rosuvastatin Adverse Reaction (Intermediate, Verified 08/29/25 10:10) Unknown Medication List - Last Reconciled 08/29/25 by GALLO Pandey amlodipine 10 mg PO DAILY aspirin (Adult Aspirin Regimen) 81 mg PO DAILY atorvastatin 10 mg PO DAILY blood pressure monitor As directed - with MEDIUM BP cuff blood pressure test kit-medium As directed cholecalciferol (vitamin D3) 50 mcg PO DAILY 90 days clonazepam 0.5 mg PO BEDTIME PRN 30 days fluticasone propionate 50 mcg/actuation 2 sprays intranasal BID 90 days hydrochlorothiazide 25 mg PO DAILY loratadine 10 mg PO DAILY metoprolol tartrate 100 mg PO BID pantoprazole 40 mg PO DAILY 90 days spironolactone 25 mg PO DAILY valsartan 320 mg PO DAILY 30 days HPI Comments Details: History of Present Illness The patient is a 65 year old male presenting for follow-up of coronary artery disease and a dilated ascending aorta. His past medical history is significant for obesity, hypertension, impaired fasting glucose, hyperlipidemia, and sleep apnea for which he uses a CPAP machine. A coronary CTA on 07/24/2023 demonstrated moderate stenosis of the proximal to mid-left anterior descending artery and less than 70% stenosis of the ostial first diagonal artery, with mild disease in the circumflex and right coronary arteries. A nuclear stress test on 09/21/2023 showed normal myocardial perfusion, and an echocardiogram on 03/27/2023 revealed an ejection fraction of 55-60% and a mildly dilated ascending aorta at 4.0 cm. He is currently prescribed amlodipine, aspirin, atorvastatin, hydrochlorothiazide, metoprolol, spironolactone, and valsartan. The patient reports developing nipple sensation and pain after starting spironolactone, which he notes is listed as a potential side effect. The pain is significant enough to hurt if he rolls over at night. He has a history of adverse reactions to other medications, including a statin and a prior blood pressure medication. He occasionally experiences palpitations described as a flutter or hesitation, which resolve quickly. He denies chest pain, dyspnea, or lightheadedness but notes occasional leg swelling after significant activity, which is resolved by the morning. His activity level includes 6,000 to 10,000 steps daily but is limited by back pain, and he acknowledges recent weight gain. [facility] Medical History Essential hypertension Bianchi esophagus Hx of hiatal hernia CAD (coronary artery disease) Pure hypercholesterolemia Vitamin D deficiency Elevated LFTs Impaired fasting glucose Gout Bilateral hip pain Lumbar degenerative disc disease Cervical disc disease Obesity (BMI 30-39.9) Anxiety Allergic rhinitis Benign essential hypertension Normal colonoscopy (~03/17/14) Obstructive sleep apnea GERD (gastroesophageal reflux disease) Deviated septum Surgical History History of nasal surgery H/O colonoscopy History of esophagogastroduodenoscopy (EGD) History of hernia repair Hx of appendectomy Family History Father S/P CABG (coronary artery bypass graft) Social History Housing: House Alcohol intake: current Alcohol intake frequency: 0-2 drinks per day Alcohol type: beer and hard liquor Patient Tobacco Use Status: Former Tobacco user Tobacco use type: Cigarette e-Cigarette/Vaping Use: Never Used Second Hand Smoke Exposure: No service: No Current occupational status: retired Cognitive needs: No Hearing needs: No Vision needs: No Review of Systems Const All systems reviewed & are unremarkable except as noted in HPI and below ENT Denies dizziness Card Details: reports sore nipples and breasts Denies chest pain, Denies chest pain at rest, Denies chest pain with activity, Denies rapid heart rate, Denies pedal edema, Denies edema, Denies leg edema, Denies lightheadedness, Denies palpitations, Denies dyspnea, Denies dyspnea on exertion and Denies orthopnea Resp Denies cough, Denies dyspnea and Denies dyspnea on exertion GI Denies hematochezia and Denies change in stool character Musc Denies abnormal gait, Denies limited range of motion, Denies muscle cramps, Denies muscle weakness, Denies numbness, Denies radiating pain into limb, Denies stiffness and Denies tingling Neuro Denies abnormal gait, Denies dizziness, Denies numbness and Denies tingling Endo Denies palpitations Physical Exam Vital Signs: Last Vital Signs Pulse 66 08/29/25 10:08 BP 140/82 H 08/29/25 10:08 BMI result Body Mass Index 37.6 Const General: cooperative, healthy appearing, comfortable and no acute distress Orientation/consciousness: patient oriented x3 Neck Neck: Yes normal visual inspection Chest Chest palpation & inspection: normal inspection of the chest Resp Effort & Inspection: normal respiratory effort Auscultation: clear to auscultation bilaterally, no rales, no rhonchi and no wheezes Cardio Rate: regular rate Rhythm: regular rhythm Heart sounds: S1 normal heart sound present, S2 normal heart sound present, no gallops, no murmurs and no rubs Neuro General: patient oriented x3 Extrem General: Yes normal to inspection, No no pedal edema and No calf tenderness Psych Appearance: grossly normal Mental Status: mental status grossly normal Speech and movement: Normal speech and movement present Office Procedures EKG Details: Today, read by me, sinus rhythm, can not exclude prior anterior infarct, rate 66, QTC 404 milliseconds [id number], Complete Assessment & Plan Assessment & Plan (1) Atherosclerotic cardiovascular disease: Code(s): I25.10 - Atherosclerotic heart disease of [place] coronary artery without angina pectoris Category: Medical Plan: Moderate coronary artery disease, asymptomatic. Continue with risk factor modification. Continue aspirin indefinitely. Continue atorvastatin with ideal LDL goal less than 70. Continue metoprolol, amlodipine, valsartan for good heart rate and blood pressure control. Signs and symptoms of angina reviewed with him. Cardiology follow-up 6 months, sooner if needed (2) Ascending aorta dilatation: Code(s): I77.810 - Thoracic aortic ectasia Category: Medical Plan: Last echo 03/27/2023 showed EF 55-60%, ascending aorta 4 cm. Will update echocardiogram prior to next visit. Continue with good blood pressure control. (3) Benign essential hypertension: Code(s): I10 - Essential (primary) hypertension Category: Medical Plan: Blood pressure mildly elevated today. He reports white coat syndrome. Does not check blood pressure at home. He believes he is having side effects from spironolactone including nipple and breast discomfort. Will have him reduce spironolactone down to 12.5 mg daily to see if this improves his symptom. If this is effective at symptom control and blood pressure management he may continue that dose. If ineffective or symptom persists then would suggest stopping spironolactone and try additional agent such as hydralazine. Continue amlodipine, hydrochlorothiazide, valsartan and metoprolol. Reviewed low-salt diet, increasing physical activity, weight loss. (4) Palpitation: Code(s): R00.2 - Palpitations Category: Medical Plan: Report of occasional heart palpitations which sounds like extrasystoles. Pulse is regular on my examination. Continue metoprolol. (5) Pure hypercholesterolemia: Code(s): E78.00 - Pure hypercholesterolemia, unspecified Category: Medical Plan: [place] LDL goal less than 70. Labs 03/10/2025 showed LDL 30, AST 48, ALT 41. Continue atorvastatin. Plan Discussion Notes I addressed the patient's concerns regarding his nipple pain, and his thought that this is a side effect of spironolactone. We discussed a plan to reduce his spironolactone dose by half to see if his symptoms improve while continuing to manage his blood pressure. I informed him that if this is not effective, we would discontinue the medication and consider switching to another agent such as hydralazine. We also discussed his coronary artery disease, and I explained that the purpose of his statin medication is to stabilize the existing plaques in his arteries to prevent future events like a heart attack, even though his LDL cholesterol is very low. I reassured him that his condition is currently stable, as supported by his normal stress test last year, and we will continue with optimal medical therapy. I instructed the patient on symptoms that would warrant immediate notification, including new chest pain, pressure, or shortness of breath, especially with exertion. I recommended continued lifestyle modifications for blood pressure control, including a low-salt diet, weight loss, and increased physical activity. The plan is for him to follow up in this clinic in 6 months, or sooner if any new concerning symptoms arise. Patient Instructions - Take half a tablet of spironolactone (12.5 mg) each day using a pill cutter. - Take all of your other medications as prescribed. - For your blood pressure, eat a low-salt diet, work on losing weight, and increase your physical activity. - Call our office if you start to have any new chest pain, pressure, tightness, or new shortness of breath, especially when you are physically active. - Follow up with your primary doctor, Dr. Claire, in October. - Schedule a follow-up visit here in 6 months, or call us sooner if you have any problems or new symptoms. Patient was informed and verbally consented to the use of an ambient scribe for clinic note documentation during this visit. Visit time spent on chart review, interview, assessment, orders, documentation. Coding Level of Care Code Est Pt Level 4 (34787) Add On Problem Visit Only Diagnoses Atherosclerotic cardiovascular disease I25.10 Ascending aorta dilatation I77.810 Benign essential hypertension I10 Palpitation R00.2 Pure hypercholesterolemia E78.00 CPT Codes EKG - CPT: 69849-[id number], Complete ([id number]) Time Spent (min) 30
[2025-08-29 10:08] VITALS: BP 140/82; PULSE 66; BMI 37.6
--- OUTSIDE RECORDS SUMMARY | 2025-08-29 12:16 | XMS_ITS | Patient Health Record ---
Author Organization [facility] Address [address] [place] [address] Care Team Providers Care Supervisor Special Effects Name Role Phone Linh Claire MDh Primary Care Provider August Lucas Jr Unavailable Allergies No Known Allergies Reason For Referral No Information Medications Medication SIG (Take, Route, Frequency, Duration) Notes Start Date End Date Status Atorvastatin Calcium 10 MG Tablet 1 tablet Orally Once a day; Duration: 30 day(s) Active clonazePAM 0.5 MG Tablet 1 tablet Orally Once a day Not-Taking/PRN hydroCHLOROthiazide 25 MG Tablet 1 tablet in the morning Orally Once a day; Duration: 30 day(s) Active Flaxseed Oil Active Loratadine 10mg Acti ve Vitamin D-3 125 MCG (5000 UT) Tablet 1 tablet Orally Once a day; Duration: 30 day(s) Active Aspirin 81 81 MG Tablet Delayed Release 1 tablet Orally Once a day; Duration: 30 day(s) Active Valsartan-hydroCHLOROthiazi de 320-12.5 MG Tablet 1 tablet Orally Once a day Active Fluticasone Propionate Active Metoprolol Succinate 100 MG Tablet Extended Release one tablet Orally twice a day Active amLODIPine Besylate 10 MG Tablet 1 tablet Orally Once a day Active Spironolactone 25 MG Tablet TAKE 1 TABLE T BY MOUTH EVERY DAY Oral; Duration: 90 Days Active Pantoprazole Sodium 40 MG Tablet Delayed Release TAKE 1 TABLET BY MOUTH EVERY DAY; Duration: 90 Active Immunizations Vaccine Route Administration Date Status Comme nts Influenza Unknown 10/26/2023 Refused Social History Social History Additional Details Category Social Info Options Details Miscellaneous: Marital status: single Occupation: unemployed Problems Problem Type SNOMED Code ICD Code Onset Dates Problem Status W/U Status Risk Notes Problem Colon cancer screening (925343036) Colon cancer screening (Z12.11) Active confirmed Problem Bianchi's esophagus (291361079) 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) Active confirmed Problem Bianchi esophagus (580855077) Bianchi esophagus (K22.70) Active confirmed Vital Signs Blood pressure diastolic 77 mm Hg 02/09/2025 Height 77.5 in 02/09/2025 Blood pressure systolic 111 mm Hg 02/09/2025 Weight 305 lbs 02/09/2025 BMI 35.7 kg/m2 02/09/2025 Encounters Encounter Location Date Provider Diagnosis [facility] [address] [place] [address] 02/09/2025 August Khan Jr Bianchi's esophagus without dysplasia K22.70 and Colon cancer screening Z12.11 Assessments Encounter Date Diagnosis (ICD Code) Assessment Notes Treatment Notes Treatment Clinical Notes Section Notes 02/09/2025 Bianchi's esophagus without dysplasia (ICD-10 - K22.70) We discussed Bianchi's esophagus today. We discussed colon polyps today. He is doing well on his current regimen of pantoprazole 40 mg daily. He will continue this. Follow-up will be for repeat endoscopy and colonoscopy in 2028. He will call if he has any problems. We discussed diet, lifestyle modifications, and weight management regarding the treatment of reflux. Today's visit was 30 minutes. 02/09/2025 Colon cancer screening (ICD-10 - Z12.11) We discussed Bianchi's esophagus today. We discussed colon polyps today. He is doing well on his current regimen of pantoprazole 40 mg daily. He will continue this. Follow-up will be for repeat endoscopy and colonoscopy in 2028. He will call if he has any problems. We discussed diet, lifestyle modifications, and weight management regarding the treatment of reflux. Today's visit was 30 minutes. Plan Of Treatment Pending Test Test Name Order Date CELIAC DISEASE ANTIBODY PANEL 03/28/2014 Future Test Test Name Order Date UPPER GI ENDOSCOPY 10/12/2013 COLONOSCOPY 10/12/2013 UPPER GI ENDOSCOPY 06/09/2018 UPPER GI ENDOSCOPY 10/26/2023 COLONOSCOPY 10/26/2023 Insurance Providers Payer Name Payer Address Payer Phone Subscriber Number Group Number Insured Name Patient Relationship to Insured Coverage Start Date Coverage End Date [facility] [address] [address] [place], [place] [id number] [phone] [id number] AILYN COFFEY Self - patient is the insured Medical (General) History Medical History History ICD Code Hypertension Coronary disease, medical management Hiatal hernia Bianchi's esophagus, EGD 10/30 4, 1 cm area of Bianchi's without dysplasia. 5-year follow-up MORIS/CPAP Colonoscopy 11/21, tubular adenoma, 5-yea r follow-up due to exam limitations. Surgical History Surgery Date(Month/Year) hernia repair appendectomy deviated septum repair
== END 2025-08-29 10:39 | disposition home or self-care (01) ==
LOC: HO.HCS 09:32
PROVIDERS: PCP Internal Medicine; Visit Provider Nurse Practitioner Family
DX: I25.10 Atherosclerotic heart disease of native coronary artery without angina pectoris (principal); I77.810 Thoracic aortic ectasia; I10 Essential (primary) hypertension; R00.2 Palpitations; E78.00 Pure hypercholesterolemia, unspecified
CPT/HCPCS: 93010; 99214

== ENCOUNTER → 2025-08-29 09:31 | Outpatient (BNVA) | payer OTHER, SELFPAY | PROVIDERS: PCP Internal Medicine; Visit Provider Nurse Practitioner Family | DX: I10 Essential (primary) hypertension (principal); I25.10 Atherosclerotic heart disease of native coronary artery without angina pectoris; I25.83 Coronary atherosclerosis due to lipid rich plaque; Z87.891 Personal history of nicotine dependence; I77.810 Thoracic aortic ectasia; E78.00 Pure hypercholesterolemia, unspecified; R00.2 Palpitations; Z79.82 Long term (current) use of aspirin | CPT/HCPCS: 93005; 99212 ==